=== PATIENT | female | born 1970 | race Caucasian/White ===

== ENCOUNTER 2016-08-16 16:16 | Emergency (ER) | payer MEDICAID ==
--- NOTE | 2016-08-16 16:30 | ER Document Report ---
ED Medical Screen (RME) - General Stated Complaint: FELL/WRIST PAIN Notes: 46 yo female c/o left wrist/arm pain. pt fell on sunday, tripped on boots. caught self with outstretched arm. pt has a known blood clot in left subclavian and vena cava. 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 IN LAST 30 DAYS: No - Related Data Allergies/Adverse Reactions: daptomycin Allergy (Severe, Verified 08/16/16 16:24) Anaphylaxis lemon oil [Lemon Oil] Allergy (Severe, Verified 08/16/16 16:24) Anaphylaxis vancomycin [Vancomycin] Allergy (Mild, Verified 08/16/16 16:24) tongue, facial swelling aspirin [Aspirin] Allergy (Verified 08/16/16 16:24) ibuprofen [Ibuprofen] Allergy (Verified 08/16/16 16:24) Penicillins Allergy (Verified 08/16/16 16:24) warfarin sodium [From Coumadin] Adverse Reaction (Unknown, Verified 08/16/16 16: 24) bleeding rivaroxaban [From Xarelto] Adverse Reaction (Verified 08/16/16 16:24) Bleeding Past Medical History - Past Medical History Cardiac Medical History: Reports: Hx Coronary Artery Disease, Hx DVT, Hx Heart Attack, Hx Hypercholesterolemia, Hx Hypertension, Hx Pulmonary Embolism Pulmonary Medical History: Reports: Hx Bronchitis Neurological Medical History: Reports: Hx Cerebrovascular Accident Renal/ Medical History: Reports: Hx Kidney Stones, Hx Renal Insufficiency Malignancy Medical History: Reports: Hx Ovarian Cancer - Bladder metastases GI Medical History: Reports: Hx Gastroesophageal Reflux Disease, Hx Ulcer Skin Medical History: Reports Hx Cellulitis Psychiatric Medical History: Reports: Hx Anxiety, Hx Depression Past Surgical History: Reports: Hx Cardiac Surgery - angioplasty, Hx Section, Hx Cholecystectomy, Hx Hysterectomy, Hx Orthopedic Surgery, Hx Urinary Tract Surgery - Bladder surgery for a metastatic cancer - Immunizations Hx Diphtheria, Pertussis, Tetanus Vaccination: No
[2016-08-16] MEDS ORDERED: HYDROCODONE/ACETAMINOPHEN 5-325 MG TABLET PO ONE (20:38)
--- NOTE | 2016-08-16 21:00 | ER Document Report ---
ED General - General Chief Complaint: Wrist Injury Stated Complaint: FELL/WRIST PAIN Time seen by provider: 20:00 Mode of Arrival: Wheelchair Information source: Patient Notes: 46-year-old female states she tripped over her 's boots and fell on outstretched left hand 3 days ago. She says that she fell she also struck her left shoulder on a dresser. She denies striking her head and denies a loss of consciousness. Patient is on anticoagulation for multiple blood clots and has had increased pain to the left wrist and left shoulder over the past 3 days. She denies injury elsewhere and has no other complaints other than chronic shortness of breath and chronic pain. Physical Exam: General: Alert, appears well. Morbidly obese pleasant female no respiratory distress HEENT: Normocephalic. Atraumatic. PERRLA. Extraocular movements intact. Oropharynx clear. Neck: Supple. Non-tender. Respiratory. Clear and equal breath sounds bilaterally. Cardiovascular: Regular rate and rhythm. Abdominal: Normal Inspection. Soft, non-tender. No distension. Normal Bowel Sounds. Extremities: Moves all four extremities. Left upper extremity has tenderness to palpation over the lateral portion left clavicle and anterior humeral head. She is able to demonstrate range of motion at the left shoulder but elevation and abduction increased pain. Extremities good range of motion the elbow without discomfort. She has increased pain with range of motion testing to the left wrist. She is able to didn't demonstrate intact radial median and ulnar nerve function and has 2+ radial and ulnar pulses. The patient is diffusely tender to palpation over the distal forearm and wrist on the left. No ecchymosis or swelling is appreciated anywhere in the left upper extremity. Other extremities are warm with 2+ pulses Neurological: Speech clear mentation normal Psychological: Normal affect. Normal Mood. Skin: Warm. Dry. Normal color. TRAVEL OUTSIDE OF THE [place] IN LAST 30 DAYS: No - Related Data Allergies/Adverse Reactions: daptomycin Allergy (Severe, Verified 08/16/16 16:24) Anaphylaxis lemon oil [Lemon Oil] Allergy (Severe, Verified 08/16/16 16:24) Anaphylaxis vancomycin [Vancomycin] Allergy (Mild, Verified 08/16/16 16:24) tongue, facial swelling aspirin [Aspirin] Allergy (Verified 08/16/16 16:24) ibuprofen [Ibuprofen] Allergy (Verified 08/16/16 16:24) Penicillins Allergy (Verified 08/16/16 16:24) warfarin sodium [From Coumadin] Adverse Reaction (Unknown, Verified 08/16/16 16: 24) bleeding rivaroxaban [From Xarelto] Adverse Reaction (Verified 08/16/16 16:24) Bleeding Past Medical History - Social History Smoking Status: Never Smoker Chew tobacco use (# tins/day): No Frequency of alcohol use: None Drug Abuse: None Family History: Reviewed & Not Pertinent Patient has suicidal ideation: No Patient has homicidal ideation: No - Past Medical History Cardiac Medical History: Reports: Hx Coronary Artery Disease, Hx DVT, Hx Heart Attack, Hx Hypercholesterolemia, Hx Hypertension, Hx Pulmonary Embolism Pulmonary Medical History: Reports: Hx Bronchitis Neurological Medical History: Reports: Hx Cerebrovascular Accident Renal/ Medical History: Reports: Hx Kidney Stones, Hx Renal Insufficiency. Denies: Hx Peritoneal Dialysis Malignancy Medical History: Reports: Hx Ovarian Cancer - Bladder metastases GI Medical History: Reports: Hx Gastroesophageal Reflux Disease, Hx Ulcer Skin Medical History: Reports Hx Cellulitis Psychiatric Medical History: Reports: Hx Anxiety, Hx Depression Past Surgical History: Reports: Hx Cardiac Surgery - angioplasty, Hx Section, Hx Cholecystectomy, Hx Hysterectomy, Hx Orthopedic Surgery, Hx Urinary Tract Surgery - Bladder surgery for a metastatic cancer - Immunizations Hx Diphtheria, Pertussis, Tetanus Vaccination: No Hx Pneumococcal Vaccination: 04/22/13 Review of Systems - Review of Systems Constitutional: denies: Chills, Fever EENT: denies: Ear pain, Throat pain Cardiovascular: denies: Chest pain Respiratory: denies: Cough Gastrointestinal: denies: Abdominal pain, Nausea, Vomiting Genitourinary: denies: Burning Musculoskeletal: See HPI Hematologic/Lymphatic: Easy bruising Neurological/Psychological: denies: Weakness, Numbness Physical Exam - Vital signs Vitals: Temp Pulse Resp BP Pulse Ox 97.8 F 82 20 141/80 H 99 08/16/16 16:21 08/16/16 16:21 08/16/16 16:21 08/16/16 16:21 08/16/16 16:21 Course - Re-evaluation Re-evalutation: 08/16/16 20:58 Patient has a fracture dislocation from her fall. I think the amount of pain as she is experiencing is likely related to soft tissue swelling possibly exacerbated by her anticoagulation. I cannot exclude the possibility of a hemarthrosis in either her shoulder or wrist but I think conservative management would be best in any case. She will provided a wrist splint as this seems to be the worst area of pain and we'll prescribe Vicodin as well and have her follow with her physicians for recheck - Vital Signs Vital signs: Temp Pulse Resp BP Pulse Ox 97.8 F 82 20 141/80 H 99 08/16/16 16:21 08/16/16 16:21 08/16/16 16:21 08/16/16 16:21 08/16/16 16:21 - Diagnostic Test Radiology reviewed: Image reviewed, Reports reviewed Discharge - Discharge Clinical Impression: Contusion Qualifiers: Encounter type: initial encounter Contusion area: wrist Laterality: left Qualified Code(s): S60.212A - Contusion of left wrist, initial encounter Contusion Qualifiers: Encounter type: initial encounter Contusion area: wrist Laterality: left Qualified Code(s): S60.212A - Contusion of left wrist, initial encounter Condition: Stable Disposition: HOME, SELF-CARE Additional Instructions: Contusion Your injury has resulted in a contusion -- a crushing of the deep tissues. No injury to important structures was detected during the physician's exam. Contusions vary in the amount of pain they cause, and in the length of time required for healing. Typically, the area will become bruised, and will remain painful to touch for two or three weeks. However, most patients are back to working and playing within a few days. After the initial period of rest and cold-packs, your symptoms (together with the doctor's recommendations) will determine how rapidly you can get back to full activity. Usually this means "do what feels okay, but don't do things that hurt." If re-examination was recommended, it's important to follow up as instructed. Call the doctor or return any time if pain increases, if swelling becomes severe, if you develop numbness or weakness in an injured extremity, or if any other alarming symptoms occur. Prescriptions: Hydrocodone/Acetaminophen [Vicodin 5-300 mg Tablet] 1 each PO Q6HP PRN #20 tablet PRN Reason: Referrals: KADY REYES MD [Primary Care Provider] - Follow up as needed
[2016-08-16 21:41] VITALS: BP 99/80
== END 2016-08-16 21:14 | disposition home or self-care (01) ==
LOC: ER 16:16
DX: S60.212A Contusion of left wrist, initial encounter (principal); W18.31XA Fall on same level due to stepping on an object, initial encounter; M25.532 Pain in left wrist; M25.512 Pain in left shoulder; I82.409 Acute embolism and thrombosis of unspecified deep veins of unspecified lower extremity; I26.99 Other pulmonary embolism without acute cor pulmonale; Z79.01 Long term (current) use of anticoagulants; I25.10 Atherosclerotic heart disease of native coronary artery without angina pectoris; I25.2 Old myocardial infarction; I10 Essential (primary) hypertension; R06.02 Shortness of breath; G89.29 Other chronic pain; Z88.1 Allergy status to other antibiotic agents; Z88.6 Allergy status to analgesic agent; Z88.0 Allergy status to penicillin; Z87.892 Personal history of anaphylaxis; Z91.018 Allergy to other foods; Z86.73 Personal history of transient ischemic attack (TIA), and cerebral infarction without residual deficits
CPT/HCPCS: 99283; 73030; 73110; L3984

== ENCOUNTER → 2016-08-17 | Outpatient (CLI) | payer MEDICAID ==
[~2016-08-17] MED LIST: ACETAMINOPHEN 325 MG TABLET PO PRN; DIPHENHYDRAMINE HCL 50 MG/ML VIAL IV PRN; IRON DEXTRAN COMPLEX 25 MG in NORMAL SALINE 100 ML IV PRN; IRON DEXTRAN COMPLEX 775 MG in NORMAL SALINE 500 ML IV PRN; NORMAL SALINE 250 ML IV PRN
[2016-08-17 17:52] VITALS: BP 124/81
== END ==
LOC: II 11:14
PROVIDERS: ATTEND Specialist
PROC: 3E033GC Introduction of Other Therapeutic Substance into Peripheral Vein, Percutaneous Approach (ICD-10-PCS; principal; 2016-08-17)
PROC: 3E033GC Introduction of Other Therapeutic Substance into Peripheral Vein, Percutaneous Approach (ICD-10-PCS; 2016-08-17)
PROC: 3E033GC Introduction of Other Therapeutic Substance into Peripheral Vein, Percutaneous Approach (ICD-10-PCS; 2016-08-17)
PROC: 3E033GC Introduction of Other Therapeutic Substance into Peripheral Vein, Percutaneous Approach (ICD-10-PCS; 2016-08-17)
PROC: 3E033GC Introduction of Other Therapeutic Substance into Peripheral Vein, Percutaneous Approach (ICD-10-PCS; 2016-08-17)
PROC: 3E033GC Introduction of Other Therapeutic Substance into Peripheral Vein, Percutaneous Approach (ICD-10-PCS; 2016-08-17)
DX: D50.0 Iron deficiency anemia secondary to blood loss (chronic) (principal)
CPT/HCPCS: 96375; 96365; 96366; J1750; J7040

== ENCOUNTER 2016-08-24 09:45 | Outpatient (CLI) | payer MEDICAID ==
[~2016-08-24 09:45] MED LIST changes: -ACETAMINOPHEN 325 MG TABLET PO PRN; -DIPHENHYDRAMINE HCL 50 MG/ML VIAL IV PRN; -IRON DEXTRAN COMPLEX 25 MG in NORMAL SALINE 100 ML IV PRN; -IRON DEXTRAN COMPLEX 775 MG in NORMAL SALINE 500 ML IV PRN; +IRON DEXTRAN COMPLEX 800 MG in NORMAL SALINE 500 ML IV PRN
[2016-08-24] MEDS ORDERED: DIPHENHYDRAMINE HCL 50 MG/ML VIAL IV PRN (10:11)
[2016-08-24 10:28] VITALS: BP 146/84
== END 2016-08-24 14:21 | disposition home or self-care (01) ==
LOC: II 09:45 → 5TH 09:46 → II 14:21
PROVIDERS: ATTEND Internal Medicine
PROC: 3E033GC Introduction of Other Therapeutic Substance into Peripheral Vein, Percutaneous Approach (ICD-10-PCS; principal; 2016-08-24)
PROC: 3E033GC Introduction of Other Therapeutic Substance into Peripheral Vein, Percutaneous Approach (ICD-10-PCS; 2016-08-24)
PROC: 3E033GC Introduction of Other Therapeutic Substance into Peripheral Vein, Percutaneous Approach (ICD-10-PCS; 2016-08-24)
DX: D50.0 Iron deficiency anemia secondary to blood loss (chronic) (principal)
CPT/HCPCS: 96365; 96366; 96375; J1200; J1750; J7040; 96374

== ENCOUNTER 2016-08-31 08:48 | Outpatient (CLI) | payer MEDICAID ==
[~2016-08-31 08:48] MED LIST changes: +ACETAMINOPHEN 325 MG TABLET PO PRN; +DIPHENHYDRAMINE HCL 50 MG/ML VIAL IV PRN
[2016-08-31 09:00] VITALS: BP 131/83
== END 2016-08-31 14:05 | disposition home or self-care (01) ==
LOC: II 08:48 → 5TH 08:52 → II 14:05
PROVIDERS: ATTEND Internal Medicine
PROC: 3E033GC Introduction of Other Therapeutic Substance into Peripheral Vein, Percutaneous Approach (ICD-10-PCS; principal; 2016-08-31)
PROC: 3E033GC Introduction of Other Therapeutic Substance into Peripheral Vein, Percutaneous Approach (ICD-10-PCS; 2016-08-31)
PROC: 3E033GC Introduction of Other Therapeutic Substance into Peripheral Vein, Percutaneous Approach (ICD-10-PCS; 2016-08-31)
DX: D50.0 Iron deficiency anemia secondary to blood loss (chronic) (principal)
CPT/HCPCS: 96365; 96366; 96375; J3490; J1200; J1750; J7040; 96367

== ENCOUNTER 2016-09-07 08:48 | Outpatient (CLI) | payer MEDICAID ==
[~2016-09-07 08:48] MED LIST changes: -ACETAMINOPHEN 325 MG TABLET PO PRN; -DIPHENHYDRAMINE HCL 50 MG/ML VIAL IV PRN
[2016-09-07 09:12] VITALS: BP 123/71
[2016-09-07] MEDS ORDERED: DIPHENHYDRAMINE HCL 50 MG/ML VIAL IV ONE (10:15)
== END 2016-09-07 13:10 | disposition home or self-care (01) ==
LOC: II 08:48 → 5TH 08:53 → II 13:10
PROVIDERS: ATTEND Internal Medicine
DX: D50.0 Iron deficiency anemia secondary to blood loss (chronic) (principal)
CPT/HCPCS: 96367; J1200; J1750; J7040

== ENCOUNTER 2017-09-02 22:28 | Emergency (ER) | payer MEDICAID ==
--- NOTE | 2017-09-02 23:53 | EKG REPORT ---
SEVERITY:- NORMAL ECG - SINUS RHYTHM : Confirmed by: Gomez Oneill 02-Sep-2017 23:53:01
--- NOTE | 2017-09-03 01:14 | ER Document Report ---
ED General - General Chief Complaint: Chest Pain Stated Complaint: BREATHING DIFFICULTY Time Seen by Provider: 09/03/17 00:23 TRAVEL OUTSIDE OF THE [place] IN LAST 30 DAYS: No - HPI Patient complains to provider of: Chest pain difficulty breathing swelling legs Notes: Patient has a history of CHF COPD coming in for evaluation of leg swelling and shortness of breath states ongoing for the last 2 days. Patient is doubling up on Bumex however decrease urination. Patient states she has not gained any weight however is having some shortness of breath patient states that he had her increase her oxygen night prior to arrival from 3 L to 4 L. Patient denies any recent travel denies any changes to medications. Patient states compliance with her Lovenox injection as she does have a history of DVT PE in the past. Patient denies any recent antibiotics. Patient also complaining of chest pain left arm center of the chest. Denies fevers chills nausea vomiting diarrhea - Related Data Allergies/Adverse Reactions: daptomycin Allergy (Severe, Verified 08/17/16 12:19) Anaphylaxis lemon oil [Lemon Oil] Allergy (Severe, Verified 08/17/16 12:19) Anaphylaxis vancomycin [Vancomycin] Allergy (Mild, Verified 08/17/16 12:19) tongue, facial swelling aspirin [Aspirin] Allergy (Verified 08/17/16 12:19) ibuprofen [Ibuprofen] Allergy (Verified 08/17/16 12:19) Penicillins Allergy (Verified 08/17/16 12:19) warfarin sodium [From Coumadin] Adverse Reaction (Unknown, Verified 08/17/16 12: 19) bleeding rivaroxaban [From Xarelto] Adverse Reaction (Verified 08/17/16 12:19) Bleeding Past Medical History - Social History Smoking Status: Unknown if Ever Smoked Family History: Reviewed & Not Pertinent - Past Medical History Cardiac Medical History: Reports: Hx Coronary Artery Disease, Hx DVT, Hx Hypercholesterolemia, Hx Hypertension, Hx Pulmonary Embolism Denies: Hx Heart Attack Pulmonary Medical History: Reports: Hx Pneumonia Denies: Hx Asthma, Hx Bronchitis, Hx COPD Neurological Medical History: Reports: Hx Cerebrovascular Accident - LEFT SIDED WEAKNESS. Denies: Hx Seizures Renal/ Medical History: Reports: Hx Kidney Stones, Hx Renal Insufficiency. Denies: Hx Peritoneal Dialysis Malignancy Medical History: Reports: Hx Ovarian Cancer - Bladder metastases GI Medical History: Reports: Hx Gastroesophageal Reflux Disease, Hx Ulcer. Denies: Hx Pancreatitis Musculoskeltal Medical History: Reports Hx Arthritis Skin Medical History: Reports Hx Cellulitis Psychiatric Medical History: Reports: Hx Anxiety, Hx Depression Past Surgical History: Reports: Hx Cardiac Surgery - angioplasty, Hx Section, Hx Cholecystectomy, Hx Hysterectomy, Hx Orthopedic Surgery, Hx Urinary Tract Surgery - Bladder surgery for a metastatic cancer - Immunizations Hx Diphtheria, Pertussis, Tetanus Vaccination: No Hx Pneumococcal Vaccination: 04/22/13 Review of Systems - Review of Systems Constitutional: No symptoms reported EENT: No symptoms reported Cardiovascular: Chest pain, Dyspnea, Edema Respiratory: No symptoms reported Gastrointestinal: No symptoms reported Genitourinary: No symptoms reported Female Genitourinary: No symptoms reported Musculoskeletal: No symptoms reported Skin: No symptoms reported Hematologic/Lymphatic: No symptoms reported Neurological/Psychological: No symptoms reported -: Yes All other systems reviewed and negative Physical Exam - Vital signs Vitals: Temp Pulse BP Pulse Ox 97.7 F 82 151/103 H 100 09/02/17 22:43 09/02/17 22:43 09/02/17 22:43 09/02/17 22:43 Interpretation: Normal - General General appearance: Appears well, Alert - HEENT Head: Normocephalic, Atraumatic Eyes: Normal Pupils: PERRL - Respiratory Respiratory status: No respiratory distress Chest status: Nontender Breath sounds: Normal Chest palpation: Normal - Cardiovascular Rhythm: Regular Heart sounds: Normal auscultation Murmur: No - Abdominal Inspection: Morbidly Obese Distension: No distension Bowel sounds: Normal Tenderness: Nontender Organomegaly: No organomegaly - Back Back: Normal, Nontender - Extremities General upper extremity: Normal inspection, Nontender, Normal color, Normal ROM , Normal temperature General lower extremity: Normal inspection, Nontender, Edema, Normal color, Normal ROM, Normal temperature - Neurological Neuro grossly intact: Yes Cognition: Normal Orientation: AAOx4 [place] Coma Scale Eye Opening: Spontaneous [place] Coma Scale Verbal: Oriented [place] Coma Scale Motor: Obeys Commands [place] Coma Scale Total: 15 Speech: Normal Motor strength normal: LUE, RUE, LLE, RLE Sensory: Normal - Psychological Associated symptoms: Normal affect, Normal mood - Skin Skin Temperature: Warm Skin Moisture: Dry Skin Color: Normal Course - Re-evaluation Re-evalutation: 09/03/17 05:10 Examination of the patient's legs does show edema patient's concern for slight erythema for cellulitis at this time is no increase in warmth no white count did not think similar process patient's laboratory studies have returned negative for cardiac issues overt heart failure and also renal failure. Patient was given Bumex and Zaroxolyn. Will check a second troponin if negative will send patient home with a prescription for Zaroxolyn. 09/03/17 05:11 Patient again states compliance with her anticoagulation do not feel the need to perform Dopplers at this time 09/03/17 05:20 Eyeball test approximately over 500 cc of urine and bedside commode at discharge - Vital Signs Vital signs: Temp Pulse Resp BP Pulse Ox 97.7 F 82 14 121/77 100 09/02/17 22:43 09/02/17 22:43 09/03/17 04:01 09/03/17 04:01 09/03/17 04:01 - Laboratory Result Diagrams: 09/03/17 01:21 09/03/17 02:05 Laboratory results interpreted by me: 09/03/17 09/03/17 09/03/17 01:21 01:21 02:05 RDW 14.8 H Carbon Dioxide 33 H Glucose 114 H NT-Pro-B Natriuret Pep 814 H Total Protein 6.2 L Lipase 19.5 L Discharge - Discharge Clinical Impression: Chronic anticoagulation, Bilateral lower extremity edema Condition: Good Instructions: Chest Pain of Unclear Cause ([facility]), Dependent Edema ([facility]) Additional Instructions: Please take Zaroxolyn with your Bumex. Will do this for the next 5 days to help remove fluid. Please follow-up with your primary care physician return to the ER symptoms worsen. Prescriptions: Metolazone [Zaroxolyn 2.5 Mg Tablet] 2.5 mg PO DAILY #5 tablet Ondansetron [Zofran Odt] 4 mg PO Q6 PRN #30 tab.rapdis PRN Reason: For Nausea/Vomiting
[2017-09-03 01:35] LABS: ABSOLUTE BASOPHILS # (AUTO) 0.1 10^3/uL (0.0-0.2); ABSOLUTE EOSINOPHILS # (AUTO) 0.3 10^3/uL (0.0-0.6); ABSOLUTE LYMPHOCYTES (AUTO) 1.3 10^3/uL (0.5-4.7); ABSOLUTE MONOCYTES (AUTO) 0.5 10^3/uL (0.1-1.4); ABSOLUTE NEUT (AUTO) 4.1 10^3/uL (1.7-8.2); EOSINOPHILS % (AUTO) 5.3 % (0-6); HEMATOCRIT 36.2 % (36.0-47.0); HEMOGLOBIN 12.1 g/dL (12.0-15.5); LYMPHOCYTES % (AUTO) 20.6 % (13-45); MEAN CORPUSCULAR HEMOGLOBIN 28.6 pg (27.0-33.4); MEAN CORPUSCULAR HGB CONC 33.4 g/dL (32.0-36.0); MEAN CORPUSCULAR VOLUME 86 fl (80-97); MONOCYTES % (AUTO) 8.1 % (3-13); PLATELET COUNT 160 10^3/uL (150-450); RED BLOOD COUNT 4.22 10^6/uL (3.72-5.28); RED CELL DISTRIBUTION WIDTH 14.8 % (11.5-14.0); TOTAL CELLS COUNTED % (AUTO) 100 %; WHITE BLOOD COUNT 6.4 10^3/uL (4.0-10.5)
[2017-09-03 01:39] LABS: INTERNATIONAL RATION (INR) 0.92
--- NOTE | 2017-09-03 01:49 | RADIOLOGY REPORT (SQ) ---
EXAM DESCRIPTION: CHEST SINGLE VIEW CLINICAL HISTORY: sob COMPARISON: 07/15/2016 FINDINGS: Single frontal view of the chest. Cardiomegaly. Right midlung linear opacity is unchanged likely representing scar discoid atelectasis. No consolidation, pneumothorax, or pleural effusion. No displaced rib fractures identified. Upper abdominal soft tissues are unremarkable. IMPRESSION: 1. No acute pulmonary process identified.
[2017-09-03] MEDS ORDERED: ONDANSETRON HCL INJ/PF 4 MG/2 ML SDV IV ONE (01:53)
[2017-09-03] MEDS ORDERED: HYDROMORPHONE HCL INJ/PF 2 MG/ML AMPULE IV ONE (01:53)
[2017-09-03 02:03] LABS: NT PRO BNP 814 pg/mL (<125)
[2017-09-03 02:05] LABS: CREATINE KINASE MB < 0.22 ng/mL (<4.55); TROPONIN I < 0.012 ng/mL
[2017-09-03 02:32] LABS: ALANINE AMINOTRANSFERASE 34 U/L (9-52); ALBUMIN 3.7 g/dL (3.5-5.0); ALKALINE PHOSPHATASE 83 U/L (38-126); ANION GAP 6 (5-19); ASPARTATE AMINO TRANSFERASE 20 U/L (14-36); BILIRUBIN,DIRECT 0.4 mg/dL (0.0-0.4); BILIRUBIN,TOTAL 0.5 mg/dL (0.2-1.3); BLOOD UREA NITROGEN 10 mg/dL (7-20); CARBON DIOXIDE 33 mmol/L (22-30); CHLORIDE 101 mmol/L (98-107); CREATINE KINASE 37 U/L (30-135); GLUCOSE 114 mg/dL (75-110); LIPASE 19.5 U/L (23-300); POTASSIUM 3.9 mmol/L (3.6-5.0); SODIUM 140.4 mmol/L (137-145); TOTAL PROTEIN 6.2 g/dL (6.3-8.2)
[2017-09-03] MEDS ORDERED: BUMETANIDE INJ/PF 1 MG/4 ML SDV IV ONE (03:04)
[2017-09-03] MEDS ORDERED: METOLAZONE 5 MG TABLET PO ONE (03:04)
[2017-09-03] MEDS ORDERED: METOLAZONE 5 MG TABLET ONE (03:53)
[2017-09-03] MEDS ORDERED: FENTANYL CITRATE INJ/PF 100 MCG/2 ML AMPUL IV ONE (04:09)
[2017-09-03 06:11] VITALS: BP 146/95
== END 2017-09-03 05:20 | disposition home or self-care (01) ==
LOC: ER 22:28
DX: I11.0 Hypertensive heart disease with heart failure (principal); I50.9 Heart failure, unspecified; Z79.899 Other long term (current) drug therapy; J44.9 Chronic obstructive pulmonary disease, unspecified; R06.02 Shortness of breath; Z99.81 Dependence on supplemental oxygen; R07.9 Chest pain, unspecified; Z79.02 Long term (current) use of antithrombotics/antiplatelets; Z86.711 Personal history of pulmonary embolism; Z86.718 Personal history of other venous thrombosis and embolism; Z88.6 Allergy status to analgesic agent; Z87.892 Personal history of anaphylaxis; Z91.018 Allergy to other foods; Z88.1 Allergy status to other antibiotic agents; I25.10 Atherosclerotic heart disease of native coronary artery without angina pectoris; Z87.01 Personal history of pneumonia (recurrent)
CPT/HCPCS: 93005; 99285; 96374; 96375; 36415; 82553; 82550; 83690; 85025; 85610; 85730; 80053; 84484; 83880; 71045; 93010; J3490; J3010; J1170; J2405

== ENCOUNTER 2017-09-06 23:16 | Inpatient (IN) | payer MEDICAID ==
[2017-09-07] MEDS ORDERED: FUROSEMIDE INJ/PF 40 MG/4 ML SDV IV ONE (00:59)
--- NOTE | 2017-09-07 01:02 | ER Document Report ---
ED General - General Chief Complaint: Leg Pain Stated Complaint: SWOLLEN/PAINFUL LEGS Time Seen by Provider: 09/07/17 00:30 Notes: Patient is a 47-year-old female who has a past medical history of multiple thromboembolic events, chronically anti-coagulated, hypertension, morbid obesity , diabetes, COPD, who presents with progressively worsening pain and swelling of her bilateral lower extremities. She describes it as a severe, constant, throbbing pain that is worsened since she was evaluated here 4 days ago. She notes that she has been taking bumetanide as well as metolazone as prescribed without any improvement and believes it is actually worsened. She denies any dietary indiscretions. She has a history of similar symptoms in the past that required hospitalization and IV diuresis. She denies any shortness of breath, orthopnea, or syncope. No chest pain. No fever or constitutional symptoms. TRAVEL OUTSIDE OF THE [place] IN LAST 30 DAYS: No - Related Data Allergies/Adverse Reactions: daptomycin Allergy (Severe, Verified 08/17/16 12:19) Anaphylaxis lemon oil [Lemon Oil] Allergy (Severe, Verified 08/17/16 12:19) Anaphylaxis vancomycin [Vancomycin] Allergy (Mild, Verified 08/17/16 12:19) tongue, facial swelling aspirin [Aspirin] Allergy (Verified 08/17/16 12:19) ibuprofen [Ibuprofen] Allergy (Verified 08/17/16 12:19) Penicillins Allergy (Verified 08/17/16 12:19) warfarin sodium [From Coumadin] Adverse Reaction (Unknown, Verified 08/17/16 12: 19) bleeding rivaroxaban [From Xarelto] Adverse Reaction (Verified 08/17/16 12:19) Bleeding Past Medical History - General Information source: Patient, Relative - Social History Smoking Status: Former Smoker Frequency of alcohol use: None Drug Abuse: None Lives with: Spouse/Significant other Family History: Reviewed & Not Pertinent - Past Medical History Cardiac Medical History: Reports: Hx Coronary Artery Disease, Hx DVT, Hx Hypercholesterolemia, Hx Hypertension, Hx Pulmonary Embolism Denies: Hx Heart Attack Pulmonary Medical History: Reports: Hx Pneumonia Denies: Hx Asthma, Hx Bronchitis, Hx COPD Neurological Medical History: Reports: Hx Cerebrovascular Accident - LEFT SIDED WEAKNESS. Denies: Hx Seizures Renal/ Medical History: Reports: Hx Kidney Stones, Hx Renal Insufficiency. Denies: Hx Peritoneal Dialysis Malignancy Medical History: Reports: Hx Ovarian Cancer - Bladder metastases GI Medical History: Reports: Hx Gastroesophageal Reflux Disease, Hx Ulcer. Denies: Hx Pancreatitis Musculoskeltal Medical History: Reports Hx Arthritis Skin Medical History: Reports Hx Cellulitis Psychiatric Medical History: Reports: Hx Anxiety, Hx Depression Past Surgical History: Reports: Hx Cardiac Surgery - angioplasty, Hx Section, Hx Cholecystectomy, Hx Hysterectomy, Hx Orthopedic Surgery, Hx Urinary Tract Surgery - Bladder surgery for a metastatic cancer - Immunizations Hx Diphtheria, Pertussis, Tetanus Vaccination: No Hx Pneumococcal Vaccination: 04/22/13 Review of Systems - Review of Systems Notes: Constitutional: Negative for fever. HENT: Negative for sore throat. Eyes: Negative for visual changes. Cardiovascular: Negative for chest pain. Respiratory: Negative for shortness of breath. Gastrointestinal: Negative for abdominal pain, vomiting or diarrhea. Genitourinary: Negative for dysuria. Musculoskeletal: Positive for bilateral lower extremity pain Skin: Negative for rash. Neurological: Negative for headaches, weakness or numbness. 10 point ROS negative except as marked above and in HPI. Physical Exam - Vital signs Vitals: Temp Pulse Resp BP Pulse Ox 98.6 F 77 20 146/87 H 98 09/06/17 23:57 09/06/17 23:57 09/06/17 23:57 09/06/17 23:57 09/06/17 23:57 Interpretation: Hypertensive Notes: PHYSICAL EXAMINATION: GENERAL: Appears moderately uncomfortable but no acute distress HEAD: Atraumatic, normocephalic. EYES: Pupils equal round and reactive to light, extraocular movements intact, sclera anicteric, conjunctiva are normal. ENT: nares patent, oropharynx clear without exudates. Moist mucous membranes. NECK: Normal range of motion, supple without lymphadenopathy LUNGS: Breath sounds clear to auscultation bilaterally and equal. No wheezes rales or rhonchi. HEART: Regular rate and rhythm without murmurs ABDOMEN: Morbidly obese abdomen, soft, nontender, normoactive bowel sounds. No guarding, no rebound. No masses appreciated. EXTREMITIES: Normal range of motion, 4+ pitting edema that extends above the knee with associated erythema and exquisite tenderness on palpation NEUROLOGICAL: No focal neurological deficits. Moves all extremities spontaneously and on command. PSYCH: Normal mood, normal affect. SKIN: Warm, Dry, normal turgor, no rashes or lesions noted. Course - Re-evaluation Re-evalutation: 09/07/17 01:00 Patient presents with progressively worsening bilateral lower extremity edema that is 4+ pitting in the bilateral lower extremities with obviously very painful sensation to even light touch. Patient is morbidly obese and I suspect a large component is secondary to poor venous return secondary to her severe truncal obesity. Labs from her most recent assessment showed no significant elevation of her BNP at baseline. No congestive failure and no increased shortness of breath. She is saturating 100% on her normal baseline 3 L by nasal cannula. She has been taking bumetanide 2 mg twice daily in addition to metolazone and reports that she is only put out 1 L of fluid since she was last seen in the emergency department. Please note that the weights entered into the system are not accurate. The patient was only asked to gas her weight and was never weighed during her prior visit nor today's visit. We will obtain an accurate weight but unfortunately I am unable to compare her weight from her previous visit to today to assist me in establishing how well the patient is diuresing as an outpatient. However given her report of progressively worsening pain and increasing edema I feel believe she is clearly failing outpatient therapy at this point will require IV diuresis and hospitalization. 09/07/17 02:08 Labs unremarkable, I discussed with Dr. Whatley who has agreed to hospitalize the patient for IV diuresis. - Vital Signs Vital signs: Temp Pulse Resp BP Pulse Ox 98.6 F 77 20 146/87 H 98 09/06/17 23:57 09/06/17 23:57 09/06/17 23:57 09/06/17 23:57 09/06/17 23:57 - Laboratory Result Diagrams: 09/07/17 00:40 09/07/17 00:40 Laboratory results interpreted by me: 09/07/17 09/07/17 00:40 00:40 RDW 14.8 H Carbon Dioxide 31 H Glucose 126 H Discharge - Discharge Clinical Impression: Bilateral lower extremity edema, Morbid obesity with BMI of 60.0-69.9, adult Condition: Fair Disposition: ADMITTED INPATIENT Admitting Provider: Billy Whatley Unit Admitted: Telemetry
[2017-09-07 01:05] LABS: ANION GAP 9 (5-19); BLOOD UREA NITROGEN 14 mg/dL (7-20); CALCIUM 9.4 mg/dL (8.4-10.2); CARBON DIOXIDE 31 mmol/L (22-30); CHLORIDE 100 mmol/L (98-107); GLUCOSE 126 mg/dL (75-110); POTASSIUM 4.5 mmol/L (3.6-5.0); SODIUM 139.8 mmol/L (137-145)
[2017-09-07 01:17] LABS: ABSOLUTE BASOPHILS # (AUTO) 0.1 10^3/uL (0.0-0.2); ABSOLUTE EOSINOPHILS # (AUTO) 0.3 10^3/uL (0.0-0.6); ABSOLUTE LYMPHOCYTES (AUTO) 1.2 10^3/uL (0.5-4.7); ABSOLUTE MONOCYTES (AUTO) 0.5 10^3/uL (0.1-1.4); ABSOLUTE NEUT (AUTO) 4.6 10^3/uL (1.7-8.2); BASOPHILS % (AUTO) 1.1 % (0-2); HEMATOCRIT 36.8 % (36.0-47.0); HEMOGLOBIN 12.3 g/dL (12.0-15.5); LYMPHOCYTES % (AUTO) 18.2 % (13-45); MEAN CORPUSCULAR HEMOGLOBIN 28.3 pg (27.0-33.4); MEAN CORPUSCULAR HGB CONC 33.5 g/dL (32.0-36.0); MEAN CORPUSCULAR VOLUME 84 fl (80-97); MONOCYTES % (AUTO) 6.8 % (3-13); PLATELET COUNT 168 10^3/uL (150-450); RED BLOOD COUNT 4.36 10^6/uL (3.72-5.28); RED CELL DISTRIBUTION WIDTH 14.8 % (11.5-14.0); SEGMENTED NEUTROPHILS % (AUTO) 68.9 % (42-78); TOTAL CELLS COUNTED % (AUTO) 100 %; WHITE BLOOD COUNT 6.7 10^3/uL (4.0-10.5)
[2017-09-07] MEDS ORDERED: MAG HYDROX/AL HYDROX/SIMETH SUSP 30 ML UDCUP PO PRN (02:17)
[2017-09-07] MEDS: FENTANYL CITRATE INJ/PF 100 MCG/2 ML AMPUL IV PRN ×3 (03:05→09:35)
[2017-09-07] MEDS: HEPARIN SOD (PORCINE) 5,000 UNIT/ML 1 ML SYRINGE SUBCUT SCH ×2 (06:33→14:38)
--- NOTE | 2017-09-07 06:47 | PDOC H&P ---
History of Present Illness Admission Date/PCP: 09/07/17 02:20 Patient complains of: Bilateral leg pain and erythema History of Present Illness: DOMONIQUE DOMINGUEZ is a 47 year old female with a past medical history of super morbid obesity, DVT and pulmonary emboli on Lovenox and recurrent venous stasis. Patient presents with approximately 5 days of worsening lower extremity erythema and pain. She denies chest pain, shortness of breath, nausea vomiting but admits subjective fever and swelling with leg pain. In the emergency room she seen +3 lower extremity edema with erythema with an otherwise unremarkable workup she is referred to the hospitalist for observation. Patient admits to multiple previous episodes and noncompliance lifestyle remaining in a recliner chair without use of compression stockings. Past Medical History Cardiac Medical History: Reports: Coronary Artery Disease, DVT, Hyperlipidema, Hypertension, Pulmonary Embolism Denies: Myocardial Infarction Pulmonary Medical History: Reports: Pneumonia Denies: Asthma, Bronchitis, Chronic Obstructive Pulmonary Disease (COPD) Neurological Medical History: Denies: Seizures Malignancy Medical History: Reports: Ovarian Cancer - Bladder metastases GI Medical History: Reports: Gastroesophageal Reflux Disease Musculoskeltal Medical History: Reports: Arthritis Psychiatric Medical History: Reports: Depression Hematology: Reports: Anemia Denies: Hemophilia, Sickle Cell Disease Past Surgical History Past Surgical History: Reports: Section, Cholecystectomy, Hysterectomy , Orthopedic Surgery Denies: Amputation Social History Information Source: Patient Lives with: Spouse/Significant other Smoking Status: Former Smoker Frequency of Alcohol Use: Occasional Hx Recreational Drug Use: No Drugs: None Hx Prescription Drug Abuse: No - Advance Directive Resuscitation Status: Full Code Family History Family History: DM Parental Family History Reviewed: Yes Children Family History Reviewed: Yes Sibling(s) Family History Reviewed.: Yes Medication/Allergy Home Medications: Clopidogrel Bisulfate [Plavix] 75 mg PO DAILY 12/03/15 Duloxetine HCl [Cymbalta 20 mg Capsule.dr] 20 mg PO DAILY 12/03/15 Epinephrine 0.3 mg SUBCUT PRN PRN 12/03/15 Morphine Sulfate [Ms-Contin Sr 15 mg Tablet] 45 mg PO BID 12/03/15 Oxycodone HCl 30 mg PO Q4H PRN 12/03/15 Potassium Chloride [Klor-Con M10] 10 meq PO DAILY 12/03/15 Ranitidine HCl 150 mg PO DAILY 12/03/15 Atorvastatin Calcium [Lipitor 40 mg Tablet] 40 mg PO QHS 03/01/16 Budesonide [Pulmicort Neb 0.5 mg/2 ml Ampul] 0.5 mg NEB PRN PRN 03/01/16 Carvedilol [Coreg] 1 tab PO Q12 03/01/16 Furosemide [Lasix 40 mg Tablet] 80 mg PO QAM 03/01/16 Ipratropium/Albuterol Sulfate [Duoneb 3 ml Ampul] 1 inh NEB BIDP PRN 03/01/16 Lisinopril 5 mg PO BID 03/01/16 Ondansetron [Zofran Odt 4 mg Tablet] 4 mg PO Q4HP PRN #30 tab.rapdis 03/13/16 Promethazine HCl [Phenergan 25 mg Tablet] 25 mg PO Q6HP PRN #20 tablet 03/13/16 Docusate Sodium [Colace 100 mg Capsule] 100 mg PO DAILYP PRN 07/15/16 Enoxaparin Sodium [Lovenox Inj 100 mg/1 ml Disp.syrin] 150 mg SUBCUT Q12 Ferrous Sulfate [Iron] 325 mg PO DAILY 07/15/16 Montelukast Sodium [Singulair 10 mg Tablet] 10 mg PO QHS 07/15/16 Oxybutynin Chloride [Ditropan 5 mg Tablet] 5 mg PO DAILY 07/15/16 Prochlorperazine Maleate [Compazine 10 mg Tablet] 25 mg PO BIDP PRN 07/15/16 Docusate Sodium [Colace 100 mg Capsule] 100 mg PO BID #60 capsule 07/21/16 Nystatin [Mycostatin Topical Powder 15 gm] 1 applic TP BID #1 bottle 07/21/16 Hydrocodone/Acetaminophen [Vicodin 5-300 mg Tablet] 1 each PO Q6HP PRN #20 tablet 08/16/16 Metolazone [Zaroxolyn 2.5 Mg Tablet] 2.5 mg PO DAILY #5 tablet 09/03/17 Ondansetron [Zofran Odt] 4 mg PO Q6 PRN #30 tab.rapdis 09/03/17 Allergies/Adverse Reactions: daptomycin Allergy (Severe, Verified 08/17/16 12:19) Anaphylaxis lemon oil [Lemon Oil] Allergy (Severe, Verified 01/26/17 12:19) Anaphylaxis vancomycin [Vancomycin] Allergy (Mild, Verified 08/17/16 12:19) tongue, facial swelling aspirin [Aspirin] Allergy (Verified 08/17/16 12:19) ibuprofen [Ibuprofen] Allergy (Verified 08/17/16 12:19) Penicillins Allergy (Verified 08/17/16 12:19) warfarin sodium [From Coumadin] Adverse Reaction (Unknown, Verified 08/17/16 12: 19) bleeding rivaroxaban [From Xarelto] Adverse Reaction (Verified 08/17/16 12:19) Bleeding Review of Systems Constitutional: ABSENT: chills, fever(s), headache(s), weight gain, weight loss Eyes: ABSENT: visual disturbances Ears: ABSENT: hearing changes Cardiovascular: ABSENT: chest pain, dyspnea on exertion, edema, orthropnea, palpitations Respiratory: ABSENT: cough, hemoptysis Gastrointestinal: ABSENT: abdominal pain, constipation, diarrhea, hematemesis, hematochezia, nausea, vomiting Genitourinary: ABSENT: dysuria, hematuria Musculoskeletal: ABSENT: joint swelling Integumentary: ABSENT: rash, wounds Neurological: ABSENT: abnormal gait, abnormal speech, confusion, dizziness, focal weakness, syncope Psychiatric: ABSENT: anxiety, depression, homidical ideation, suicidal ideation Endocrine: ABSENT: cold intolerance, heat intolerance, polydipsia, polyuria Hematologic/Lymphatic: ABSENT: easy bleeding, easy bruising Physical Exam Vital Signs: Temp Pulse Resp BP Pulse Ox 98.8 F 84 16 128/65 H 96 09/07/17 05:59 09/07/17 05:59 09/07/17 05:59 09/07/17 05:59 09/07/17 05:59 Intake & Output 09/05/17 09/06/17 09/07/17 11:59 11:59 11:59 Weight 171 kg General appearance: PRESENT: no acute distress, cooperative, morbidly obese, well-developed, well-nourished Head exam: PRESENT: atraumatic, normocephalic Eye exam: PRESENT: conjunctiva pink, EOMI, PERRLA. ABSENT: scleral icterus Ear exam: PRESENT: normal external ear exam Mouth exam: PRESENT: moist, tongue midline Neck exam: ABSENT: carotid bruit, JVD, lymphadenopathy, thyromegaly Respiratory exam: PRESENT: clear to auscultation astrid. ABSENT: rales, rhonchi, wheezes Cardiovascular exam: PRESENT: RRR. ABSENT: diastolic murmur, rubs, systolic murmur Pulses: PRESENT: normal dorsalis pedis pul Vascular exam: PRESENT: normal capillary refill GI/Abdominal exam: PRESENT: normal bowel sounds, soft. ABSENT: distended, guarding, mass, organolmegaly, rebound, tenderness Rectal exam: PRESENT: deferred Extremities exam: PRESENT: full ROM, +2 edema. ABSENT: calf tenderness, clubbing, pedal edema Neurological exam: PRESENT: alert, awake, oriented to person, oriented to place , oriented to time, oriented to situation, CN II-XII grossly intact. ABSENT: motor sensory deficit Psychiatric exam: PRESENT: appropriate affect, normal mood. ABSENT: homicidal ideation, suicidal ideation Skin exam: PRESENT: dry, erythema, intact, warm. ABSENT: cyanosis, rash Assessment & Plan - Diagnosis (1) Venous stasis dermatitis of both lower extremities Is this a current diagnosis for this admission?: Yes Plan: Education, compression stockings and elevation. (2) Bilateral lower extremity edema Is this a current diagnosis for this admission?: Yes Plan: Trial loop diuretic diuresis in addition to above. - Time Time Spent: 30 to 50 Minutes
[2017-09-07] MEDS ORDERED: INFLUENZA ADLT QUAD (36MOS+) 2017-18 VAC 0.5 ML SYR IM PRN (07:51)
[2017-09-07 08:13] LABS: ANION GAP 12 (5-19); BLOOD UREA NITROGEN 14 mg/dL (7-20); CALCIUM 9.6 mg/dL (8.4-10.2); CARBON DIOXIDE 32 mmol/L (22-30); CHLORIDE 96 mmol/L (98-107); GLUCOSE 135 mg/dL (75-110); POTASSIUM 3.8 mmol/L (3.6-5.0); SODIUM 139.6 mmol/L (137-145)
[2017-09-07] MEDS: DOCUSATE SODIUM 100 MG CAPSULE PO SCH (09:14)
[2017-09-07] MEDS: POTASSIUM CHLORIDE 10 MEQ TABLET.SA PO SCH ×2 (09:15→22:09)
[2017-09-07] MEDS ORDERED: DOCUSATE SODIUM 100 MG CAPSULE PO PRN (09:55)
[2017-09-07] MEDS ORDERED: IPRATROPIUM/ALBUTEROL 0.5-2.5 MG/3 ML AMPUL NEB PRN (09:55)
[2017-09-07] MEDS ORDERED: (PENDING PHARMACY ID) (Oxycodone Hcl/Acetaminophen [Percocet 10-325 Mg Tablet] 1 TAB) PO PRN (09:55)
[2017-09-07] MEDS ORDERED: BUDESONIDE NEB 0.5 MG/2 ML AMPUL NEB PRN (09:55)
[2017-09-07] MEDS ORDERED: POTASSIUM CHLORIDE 10 MEQ TABLET.SA PO SCH (10:00)
[2017-09-07] MEDS ORDERED: FUROSEMIDE INJ/PF 40 MG/4 ML SDV IV SCH ×2 (10:00→15:15)
[2017-09-07] MEDS ORDERED: ENOXAPARIN SODIUM SUBCUT SCH (10:00)
[2017-09-07] MEDS ORDERED: (PENDING PHARMACY ID) (Bumetanide [Bumex 2 Mg Tablet] 2 MG) PO SCH (10:00)
[2017-09-07] MEDS ORDERED: (PENDING PHARMACY ID) (Ranitidine Hcl [Zantac 150 Mg Tablet] 150 MG) PO SCH (10:00)
[2017-09-07] MEDS: LISINOPRIL 5 MG TABLET PO SCH ×2 (10:30→22:09)
[2017-09-07] MEDS: MORPHINE SULFATE SR 30 MG TABLET PO SCH ×2 (10:31→22:09)
[2017-09-07] MEDS: CLOPIDOGREL BISULFATE 75 MG TABLET PO SCH (10:32)
[2017-09-07] MEDS: CARVEDILOL 3.125 MG TABLET PO SCH ×2 (10:32→22:09)
[2017-09-07] MEDS: OXYBUTYNIN CHLORIDE 5 MG TABLET PO SCH (10:32)
[2017-09-07] MEDS: FERROUS SULFATE 325 MG TABLET PO SCH (10:33)
[2017-09-07] MEDS: ONDANSETRON 4 MG TAB.RAPDIS PO PRN (10:45)
[2017-09-07] MEDS ORDERED: HYDROMORPHONE HCL INJ/PF 2 MG/ML AMPULE ONE (12:54)
[2017-09-07] MEDS: DULOXETINE HCL 20 MG CAPSULE.DR PO SCH (14:34)
[2017-09-07] MEDS: OXYCODONE-ACETAMINOPHEN 5-325 MG TABLET PO PRN (14:35)
[2017-09-07] MEDS: OXYCODONE HCL IR 5 MG TABLET PO PRN (14:35)
--- NOTE | 2017-09-07 15:31 | PDOC PROGRESS REPORT ---
Subjective Progress Note for:: 09/07/17 Subjective:: The patient is a morbidly obese 47-year-old female with a past medical history significant for chronic respiratory failure on 3 L of oxygen at home. She has a history of coronary artery disease history of DVT and PE. She is maintained on Lovenox therapy. She has hyperlipidemia and hypertension. The patient has had an increasing history over the past couple of weeks of increased shortness of breath. She also states that she has had increasing lower extremity edema and as her legs have become more swollen they have become significantly painful. Her last echocardiogram was in September 2015. She was admitted to the hospital for IV diuresis. Today when I saw her she is still quite uncomfortable although she states that the swelling is minimally better. She is being diuresed with IV Lasix and tolerating it well. She denies fever or chills. No chest pain or heart palpitations that she is aware of. She is having difficulty lying flat and states that she has increased shortness of breath although she is at her baseline oxygen requirements at this point. She has had no nausea, vomiting or diarrhea. No abdominal pain. The patient does not feel like she is voiding as much as she should be and she has been afraid to drink water at home because she did not want to make the swelling any worse. She also states that she has been having difficulty ambulating due to the significant pain in her lower extremities. Reason For Visit: VENOUS STASIS HEART FAILURE Physical Exam Vital Signs: Temp Pulse Resp BP Pulse Ox 98.8 F 79 18 133/71 H 98 09/07/17 11:14 09/07/17 11:14 09/07/17 11:14 09/07/17 11:14 09/07/17 11:51 Intake & Output 09/06/17 09/07/17 09/08/17 06:59 06:59 06:59 Intake Total 240 Output Total 1100 Balance -860 Weight 171 kg General appearance: PRESENT: cooperative, morbidly obese, well-developed, well- nourished Head exam: PRESENT: atraumatic, normocephalic Mouth exam: PRESENT: moist, tongue midline Respiratory exam: PRESENT: other - She may have some fine crackles in the lower bases bilaterally it is difficult to tell. She is significantly diminished and Cardiovascular exam: PRESENT: RRR. ABSENT: diastolic murmur, rubs, systolic murmur GI/Abdominal exam: PRESENT: normal bowel sounds, soft, other - I could not assess for organomegaly due to the patient's body habitus. ABSENT: distended, guarding, mass, rebound, tenderness Rectal exam: PRESENT: deferred Extremities exam: PRESENT: +1 edema, other - The patient has 1+ edema bilaterally that extends up into her thighs. She has some erythema consistent with venous stasis changes in both of her lower extremities. Both of her lower extremities are quite tender to the touch. Also the tops of her feet. Neurological exam: PRESENT: alert, awake, oriented to person, oriented to place , oriented to time, oriented to situation, CN II-XII grossly intact. ABSENT: motor sensory deficit Psychiatric exam: PRESENT: appropriate affect, normal mood. ABSENT: homicidal ideation, suicidal ideation Skin exam: PRESENT: dry, intact, warm, other - Venous stasis changes to both of her lower extremities bilaterally. ABSENT: cyanosis, rash Results Laboratory Results: 09/07/17 07:20 09/07/17 07:20 Sodium 139.6 Potassium 3.8 Chloride 96 L Carbon Dioxide 32 H Anion Gap 12 BUN 14 Creatinine 0.80 Est GFR ( Amer) > 60 Est GFR (Non-Af Amer) > 60 Glucose 135 H Calcium 9.6 Assessment & Plan - Diagnosis (1) Bilateral lower extremity edema Is this a current diagnosis for this admission?: Yes Plan: I will continue IV Lasix. I am going to increase her dose to 60 mg twice daily. We will see how much she diuresis overnight. Certainly she is a little better today. (2) Congestive heart failure Qualifiers: Heart failure type: right-sided Is this a current diagnosis for this admission?: Yes Plan: At this point I suspect the patient has some right-sided congestive heart failure. Her echocardiogram in September 2015 revealed preserved left ventricular function. They were unable to assess for diastolic dysfunction. She did have a dilated right ventricle. Certainly her weight has not gotten any less since that time. Her increased shortness of breath and lower extremity edema are concerning for right-sided heart failure. I will obtain a 2D echocardiogram. It is going to be a but hopefully we can get some information. Difficult study (3) Venous stasis dermatitis of both lower extremities Is this a current diagnosis for this admission?: Yes Plan: She does not have any evidence of cellulitis. (4) Chronic respiratory failure Is this a current diagnosis for this admission?: Yes Plan: Secondary to morbid obesity and likely obesity hypoventilation syndrome and probable congestive heart failure. She does have increased shortness of breath but this at her baseline oxygen requirements. (5) Morbid obesity with BMI of 60.0-69.9, adult Is this a current diagnosis for this admission?: Yes Plan: Certainly she would benefit from weight loss. Dietary discretion is advised (6) History of pulmonary embolism Is this a current diagnosis for this admission?: Yes Plan: She has a history of pulmonary embolism and DVT. She is maintained on full dose Lovenox at home. We will continue this here in the hospital. (7) Coronary artery disease Is this a current diagnosis for this admission?: Yes Plan: She has been started on her home regimen. (8) Hyperlipidemia Is this a current diagnosis for this admission?: Yes Plan: Continue atorvastatin (9) Hypertension Is this a current diagnosis for this admission?: Yes Plan: She will continue her home regimen. Blood pressure is well controlled at this point (10) Ambulatory dysfunction Is this a current diagnosis for this admission?: Yes Plan: I am going to get physical therapy to see the patient. (11) Full code status Is this a current diagnosis for this admission?: Yes - Time Time Spent with patient: 25-34 minutes - Inpatient Certification Medical Necessity: Other - The patient will remain in observation in the hospital. I am going to aggressively diurese her tonight. Will get physical therapy to see her make sure she can ambulate and we will get an echocardiogram. I would not be surprised if the patient did not require further diuresis prior to discharge but we will make that decision tomorrow.
--- NOTE | 2017-09-07 16:00 | RADIOLOGY REPORT (SQ) ---
EXAM DESCRIPTION: CHEST SINGLE VIEW COMPLETED DATE/TIME: 09/07/2017 3:43 pm REASON FOR STUDY: chf?? sob COMPARISON: 09/03/2017 NUMBER OF VIEWS: One view. TECHNIQUE: Single frontal radiographic view of the chest acquired. LIMITATIONS: None. FINDINGS: LUNGS AND PLEURA: Chronic interstitial changes. MEDIASTINUM AND HILAR STRUCTURES: No masses. Contour normal. HEART AND VASCULAR STRUCTURES: Heart enlarged without failure. Normal vasculature. BONES: No acute findings. HARDWARE: None in the chest. OTHER: No other significant finding. IMPRESSION: Cardiomegaly. Chronic interstitial lung disease. TECHNICAL DOCUMENTATION: JOB ID: [id number] [email or web address]- All Rights Reserved
[2017-09-07] MEDS: HYDROMORPHONE HCL INJ/PF 2 MG/ML AMPULE IV PRN ×2 (18:19→22:33)
[2017-09-07] MEDS: BUMETANIDE 1 MG TABLET PO SCH (18:21)
[2017-09-07] MEDS: ATORVASTATIN CALCIUM 40 MG TABLET PO SCH (22:08)
[2017-09-07] MEDS: ENOXAPARIN SODIUM INJ 150 MG/1 ML DISP.SYRIN SUBCUT SCH (22:09)
[2017-09-07] MEDS: MONTELUKAST SODIUM 10 MG TABLET PO SCH (22:09)
[2017-09-07] MEDS: FUROSEMIDE INJ/PF 100 MG/10 ML SDV IV SCH (22:09)
[2017-09-08] MEDS: HYDROMORPHONE HCL INJ/PF 2 MG/ML AMPULE IV PRN ×5 (03:14→21:04)
[2017-09-08] MEDS: OXYCODONE HCL IR 5 MG TABLET PO PRN ×2 (03:46→14:06)
[2017-09-08] MEDS: OXYCODONE-ACETAMINOPHEN 5-325 MG TABLET PO PRN ×3 (03:46→19:53)
[2017-09-08 05:08] LABS: ABSOLUTE BASOPHILS # (AUTO) 0.1 10^3/uL (0.0-0.2); ABSOLUTE EOSINOPHILS # (AUTO) 0.3 10^3/uL (0.0-0.6); ABSOLUTE LYMPHOCYTES (AUTO) 1.1 10^3/uL (0.5-4.7); ABSOLUTE MONOCYTES (AUTO) 0.6 10^3/uL (0.1-1.4); HEMATOCRIT 39.3 % (36.0-47.0); HEMOGLOBIN 13.2 g/dL (12.0-15.5); LYMPHOCYTES % (AUTO) 15.7 % (13-45); MEAN CORPUSCULAR HEMOGLOBIN 28.6 pg (27.0-33.4); MEAN CORPUSCULAR HGB CONC 33.5 g/dL (32.0-36.0); MEAN CORPUSCULAR VOLUME 85 fl (80-97); MONOCYTES % (AUTO) 8.6 % (3-13); PLATELET COUNT 170 10^3/uL (150-450); RED BLOOD COUNT 4.61 10^6/uL (3.72-5.28); RED CELL DISTRIBUTION WIDTH 14.8 % (11.5-14.0); SEGMENTED NEUTROPHILS % (AUTO) 70.7 % (42-78); TOTAL CELLS COUNTED % (AUTO) 100 %; WHITE BLOOD COUNT 7.2 10^3/uL (4.0-10.5)
[2017-09-08 05:30] LABS: ANION GAP 11 (5-19); BLOOD UREA NITROGEN 18 mg/dL (7-20); CALCIUM 9.4 mg/dL (8.4-10.2); CARBON DIOXIDE 34 mmol/L (22-30); CHLORIDE 93 mmol/L (98-107); CREATINE KINASE 50 U/L (30-135); GLUCOSE 140 mg/dL (75-110); POTASSIUM 3.8 mmol/L (3.6-5.0); SODIUM 138.2 mmol/L (137-145)
[2017-09-08 05:45] LABS: CREATINE KINASE MB < 0.22 ng/mL (<4.55); TROPONIN I < 0.012 ng/mL
[2017-09-08] MEDS: FAMOTIDINE 20 MG TABLET PO SCH (09:35)
[2017-09-08] MEDS: MORPHINE SULFATE SR 30 MG TABLET PO SCH ×2 (09:35→21:57)
[2017-09-08] MEDS: OXYBUTYNIN CHLORIDE 5 MG TABLET PO SCH (09:35)
[2017-09-08] MEDS: CLOPIDOGREL BISULFATE 75 MG TABLET PO SCH (09:35)
[2017-09-08] MEDS: CARVEDILOL 3.125 MG TABLET PO SCH ×2 (09:36→21:58)
[2017-09-08] MEDS: POTASSIUM CHLORIDE 10 MEQ TABLET.SA PO SCH ×2 (09:36→21:56)
[2017-09-08] MEDS: DOCUSATE SODIUM 100 MG CAPSULE PO SCH (09:36)
[2017-09-08] MEDS: LISINOPRIL 5 MG TABLET PO SCH ×2 (09:36→22:11)
[2017-09-08] MEDS: FUROSEMIDE INJ/PF 100 MG/10 ML SDV IV SCH ×2 (09:36→21:58)
[2017-09-08] MEDS: DULOXETINE HCL 20 MG CAPSULE.DR PO SCH (09:37)
[2017-09-08] MEDS: BUMETANIDE 1 MG TABLET PO SCH ×2 (09:38→16:58)
[2017-09-08] MEDS: ENOXAPARIN SODIUM INJ 150 MG/1 ML DISP.SYRIN SUBCUT SCH ×2 (09:39→22:04)
[2017-09-08] MEDS: FERROUS SULFATE 325 MG TABLET PO SCH (09:40)
--- NOTE | 2017-09-08 15:42 | PDOC PROGRESS REPORT ---
Subjective Progress Note for:: 09/08/17 Subjective:: The patient is a morbidly obese 47-year-old female with a past medical history significant for chronic respiratory failure on 3 L of oxygen at home. She has a history of coronary artery disease history of DVT and PE. She is maintained on Lovenox therapy. She has hyperlipidemia and hypertension. The patient has had an increasing history over the past couple of weeks of increased shortness of breath. She also states that she has had increasing lower extremity edema and as her legs have become more swollen they have become significantly painful. Her last echocardiogram was in September 2015. She was admitted to the hospital for IV diuresis. Today edema is improved. She is being diuresed with IV Lasix and tolerating it well. She denies fever or chills. No chest pain or heart palpitations that she is aware of. She is having difficulty lying flat and states that she has increased shortness of breath although she is at her baseline oxygen requirements at this point. She has had no nausea, vomiting or diarrhea. No abdominal pain. The patient does not feel like she is voiding as much as she should be and she has been afraid to drink water at home because she did not want to make the swelling any worse. She also states that she has been having difficulty ambulating due to the significant pain in her lower extremities. Reason For Visit: VENOUS STASIS HEART FAILURE Physical Exam Vital Signs: Temp Pulse Resp BP Pulse Ox 97.9 F 61 20 106/64 96 09/08/17 12:23 09/08/17 12:23 09/08/17 12:23 09/08/17 12:23 09/08/17 12:23 Intake & Output 09/07/17 09/08/17 09/09/17 06:59 06:59 06:59 Intake Total 620 Output Total 1400 Balance -780 Weight 171 kg 188.8 kg General appearance: PRESENT: no acute distress, morbidly obese, well-developed, well-nourished Head exam: PRESENT: atraumatic, normocephalic Eye exam: PRESENT: conjunctiva pink, EOMI, PERRLA. ABSENT: scleral icterus Ear exam: PRESENT: normal external ear exam Mouth exam: PRESENT: moist, tongue midline Neck exam: ABSENT: carotid bruit, JVD, lymphadenopathy, thyromegaly Respiratory exam: PRESENT: decreased breath sounds - bilataral bases, symmetrical, unlabored Cardiovascular exam: PRESENT: RRR. ABSENT: diastolic murmur, rubs, systolic murmur Pulses: PRESENT: normal carotid pulses, normal radial pulses Vascular exam: PRESENT: normal capillary refill GI/Abdominal exam: PRESENT: normal bowel sounds, soft. ABSENT: distended, guarding, mass, organolmegaly, rebound, tenderness Rectal exam: PRESENT: deferred Extremities exam: PRESENT: calf tenderness, +2 edema - bilateral lower extremities Musculoskeletal exam: PRESENT: ambulatory, full ROM, tenderness - lower legs Neurological exam: PRESENT: alert, awake, oriented to person, oriented to place , oriented to time, oriented to situation, CN II-XII grossly intact. ABSENT: motor sensory deficit Psychiatric exam: PRESENT: appropriate affect, normal mood. ABSENT: homicidal ideation, suicidal ideation Skin exam: PRESENT: dry, intact, warm. ABSENT: cyanosis, rash Results Laboratory Results: 09/08/17 04:43 09/08/17 04:43 09/08/17 09/08/17 04:43 04:43 WBC 7.2 RBC 4.61 Hgb 13.2 Hct 39.3 MCV 85 MCH 28.6 MCHC 33.5 RDW 14.8 H Plt Count 170 Seg Neutrophils % 70.7 Lymphocytes % 15.7 Monocytes % 8.6 Eosinophils % 4.0 Basophils % 1.0 Absolute Neutrophils 5.0 Absolute Lymphocytes 1.1 Absolute Monocytes 0.6 Absolute Eosinophils 0.3 Absolute Basophils 0.1 Sodium 138.2 Potassium 3.8 Chloride 93 L Carbon Dioxide 34 H Anion Gap 11 BUN 18 Creatinine 0.85 Est GFR ( Amer) > 60 Est GFR (Non-Af Amer) > 60 Glucose 140 H Calcium 9.4 Magnesium 2.1 09/08/17 09/08/17 04:43 04:43 Creatine Kinase 50 CK-MB (CK-2) < 0.22 Troponin I < 0.012 Impressions: Chest X-Ray 09/07/17 00:00 IMPRESSION: Cardiomegaly. Chronic interstitial lung disease. Assessment & Plan - Diagnosis (1) Bilateral lower extremity edema Is this a current diagnosis for this admission?: Yes Plan: Continue diuresis. Improving (2) Ambulatory dysfunction Is this a current diagnosis for this admission?: Yes Plan: Improving with resolving edema (3) Congestive heart failure Qualifiers: Heart failure type: right-sided Is this a current diagnosis for this admission?: Yes Plan: Responding well to IV diuretics (4) History of pulmonary embolism Is this a current diagnosis for this admission?: Yes (5) Hyperlipidemia Is this a current diagnosis for this admission?: Yes Plan: Continue statin (6) Hypertension Qualifiers: Hypertension type: essential hypertension Qualified Code(s): I10 - Essential (primary) hypertension Is this a current diagnosis for this admission?: Yes Plan: Patient is normotensive (7) Morbid obesity with BMI of 60.0-69.9, adult Is this a current diagnosis for this admission?: Yes Plan: Counseled (8) Chronic respiratory failure Is this a current diagnosis for this admission?: Yes (9) Coronary artery disease Qualifiers: Coronary Disease-Associated Artery/Lesion type: [place] artery Associated angina: without angina Is this a current diagnosis for this admission?: Yes Plan: Continue home medications (10) History of uterine cancer Is this a current diagnosis for this admission?: Yes - Time Time Spent with patient: 25-34 minutes Medications reviewed and adjusted accordingly: Yes Anticipated discharge: Home with Homehealth
[2017-09-08] MEDS: ONDANSETRON 4 MG TAB.RAPDIS PO PRN (18:44)
[2017-09-08] MEDS ORDERED: METOLAZONE 5 MG TABLET PO ONE (21:30)
[2017-09-08] MEDS: ATORVASTATIN CALCIUM 40 MG TABLET PO SCH (21:57)
[2017-09-08] MEDS: MONTELUKAST SODIUM 10 MG TABLET PO SCH (21:59)
[2017-09-09] MEDS: HYDROMORPHONE HCL INJ/PF 2 MG/ML AMPULE IV PRN ×5 (01:30→21:59)
[2017-09-09 06:37] LABS: ANION GAP 11 (5-19); BLOOD UREA NITROGEN 24 mg/dL (7-20); CALCIUM 9.6 mg/dL (8.4-10.2); CARBON DIOXIDE 36 mmol/L (22-30); CHLORIDE 92 mmol/L (98-107); GLUCOSE 127 mg/dL (75-110); POTASSIUM 3.7 mmol/L (3.6-5.0); SODIUM 139.1 mmol/L (137-145)
[2017-09-09] MEDS: OXYCODONE-ACETAMINOPHEN 5-325 MG TABLET PO PRN (06:39)
[2017-09-09] MEDS: BUMETANIDE 1 MG TABLET PO SCH ×2 (10:03→23:59)
[2017-09-09] MEDS: DOCUSATE SODIUM 100 MG CAPSULE PO SCH (10:03)
[2017-09-09] MEDS: POTASSIUM CHLORIDE 10 MEQ TABLET.SA PO SCH ×2 (10:04→23:59)
[2017-09-09] MEDS: DULOXETINE HCL 20 MG CAPSULE.DR PO SCH (10:04)
[2017-09-09] MEDS: FAMOTIDINE 20 MG TABLET PO SCH (10:04)
[2017-09-09] MEDS: FERROUS SULFATE 325 MG TABLET PO SCH (10:04)
[2017-09-09] MEDS: CLOPIDOGREL BISULFATE 75 MG TABLET PO SCH (10:04)
[2017-09-09] MEDS: FUROSEMIDE INJ/PF 100 MG/10 ML SDV IV SCH ×2 (10:05→23:59)
[2017-09-09] MEDS: MORPHINE SULFATE SR 30 MG TABLET PO SCH (10:05)
[2017-09-09] MEDS: CARVEDILOL 3.125 MG TABLET PO SCH ×2 (10:05→23:59)
[2017-09-09] MEDS: ENOXAPARIN SODIUM INJ 150 MG/1 ML DISP.SYRIN SUBCUT SCH ×2 (10:07→22:05)
[2017-09-09] MEDS: LISINOPRIL 5 MG TABLET PO SCH ×2 (10:13→23:59)
[2017-09-09] MEDS: OXYBUTYNIN CHLORIDE 5 MG TABLET PO SCH (10:13)
[2017-09-09] MEDS: ONDANSETRON 4 MG TAB.RAPDIS PO PRN (13:07)
--- NOTE | 2017-09-09 15:54 | PDOC PROGRESS REPORT ---
Subjective Progress Note for:: 09/09/17 Subjective:: Patient states she is nauseous but otherwise the shortness of breath is somewhat improved she also states that there is decrease Edema in the lower extremities She has no nausea no vomiting no diarrhea and no chest pain Reason For Visit: VENOUS STASIS HEART FAILURE Physical Exam Vital Signs: Temp Pulse Resp BP Pulse Ox 97.8 F 90 20 115/64 94 09/09/17 11:22 09/09/17 14:00 09/09/17 11:22 09/09/17 11:22 09/09/17 11:22 Intake & Output 09/08/17 09/09/17 09/10/17 00:59 00:59 00:59 Intake Total 480 1630 250 Output Total 1100 2200 0 Balance -620 -570 250 Weight 171 kg 188.8 kg 186.8 kg General appearance: PRESENT: no acute distress, morbidly obese, well-developed, well-nourished Head exam: PRESENT: atraumatic, normocephalic Eye exam: PRESENT: conjunctiva pink, EOMI, PERRLA. ABSENT: scleral icterus Ear exam: PRESENT: normal external ear exam Mouth exam: PRESENT: moist, tongue midline Neck exam: ABSENT: carotid bruit, JVD, lymphadenopathy, thyromegaly Respiratory exam: PRESENT: decreased breath sounds - bilataral bases, symmetrical, unlabored Cardiovascular exam: PRESENT: RRR. ABSENT: diastolic murmur, rubs, systolic murmur Pulses: PRESENT: normal carotid pulses, normal radial pulses Vascular exam: PRESENT: normal capillary refill GI/Abdominal exam: PRESENT: normal bowel sounds, soft. ABSENT: distended, guarding, mass, organolmegaly, rebound, tenderness Rectal exam: PRESENT: deferred Extremities exam: PRESENT: calf tenderness, +1 edema - bilateral lower extremities Musculoskeletal exam: PRESENT: ambulatory, full ROM, tenderness - lower legs Neurological exam: PRESENT: alert, awake, oriented to person, oriented to place , oriented to time, oriented to situation, CN II-XII grossly intact. ABSENT: motor sensory deficit Psychiatric exam: PRESENT: appropriate affect, normal mood. ABSENT: homicidal ideation, suicidal ideation Skin exam: PRESENT: dry, intact, warm. ABSENT: cyanosis, rash Results Laboratory Results: 09/08/17 04:43 09/09/17 04:47 09/09/17 04:47 Sodium 139.1 Potassium 3.7 Chloride 92 L Carbon Dioxide 36 H Anion Gap 11 BUN 24 H Creatinine 0.96 Est GFR ( Amer) > 60 Est GFR (Non-Af Amer) > 60 Glucose 127 H Calcium 9.6 09/08/17 09/08/17 04:43 04:43 Creatine Kinase 50 CK-MB (CK-2) < 0.22 Troponin I < 0.012 Impressions: Chest X-Ray 09/07/17 00:00 IMPRESSION: Cardiomegaly. Chronic interstitial lung disease. Assessment & Plan - Time Time Spent with patient: (1) Bilateral lower extremity edema Is this a current diagnosis for this admission?: Yes Plan: Continue diuresis. Improving Edema likely secondary to venous stasis There is a very low possibility of DVT as patient is chronically anticoagulated with Lovenox (2) Ambulatory dysfunction Is this a current diagnosis for this admission?: Yes Plan: Improving with resolving edema ; will request PT evaluation on Sunday (3) Congestive heart failure Qualifiers: Heart failure type: right-sided Is this a current diagnosis for this admission?: Yes Plan: Responding well to IV diuretics last echocardiogram performed in 2015 showed preserved EF with concentric left ventricular hypertrophy (4) History of pulmonary embolism Is this a current diagnosis for this admission?: Yes Continue Lovenox at 1 mg/kg every 12 H (5) Hyperlipidemia Is this a current diagnosis for this admission?: Yes Plan: Continue statin (6) Hypertension Qualifiers: Hypertension type: essential hypertension Qualified Code(s): I10 - Essential (primary) hypertension Is this a current diagnosis for this admission?: Yes Plan: Patient is normotensive (7) Morbid obesity with BMI of 60.0-69.9, adult Is this a current diagnosis for this admission?: Yes Plan: Counseled (8) Chronic respiratory failure Is this a current diagnosis for this admission?: Yes (9) Coronary artery disease Qualifiers: Coronary Disease-Associated Artery/Lesion type: [place] artery Associated angina: without angina Is this a current diagnosis for this admission?: Yes Plan: Continue home medications (10) History of uterine cancer Is this a current diagnosis for this admission?: Yes Continue diuresis Initiate physical therapy Patient appears extremely debilitated Time Spent with patient: 25-34 minutes
[2017-09-09] MEDS: PROCHLORPERAZINE MALEATE 10 MG TABLET PO PRN ×2 (16:53→22:04)
[2017-09-09] MEDS: ONDANSETRON HCL INJ/PF 4 MG/2 ML SDV IV PRN (17:23)
--- NOTE | 2017-09-09 20:34 | RADIOLOGY REPORT (SQ) ---
EXAM DESCRIPTION: ACUTE ABDOMEN SERIES COMPLETED DATE/TIME: 09/09/2017 8:24 pm REASON FOR STUDY: Intractable nausea COMPARISON: 09/07/2017 radiographs of the chest. NUMBER OF VIEWS: Three views. TECHNIQUE: Frontal chest, supine abdomen and upright/decubitus abdomen radiographic images acquired. LIMITATIONS: Morbid obesity. FINDINGS: CHEST: Low volumes with areas of subsegmental atelectasis. Similar appearance to prior. No abnormal gas or fluid. Stable cardiomediastinal silhouette. FREE AIR: None. No abnormal gas collections. BOWEL GAS PATTERN: Nonobstructive pattern. No dilated loops or air fluid levels. CALCIFICATIONS: No suspicious calcifications. Presumed phleboliths in the pelvis. HARDWARE: None in the abdomen. SOFT TISSUES: No gross mass or suggestion of organomegaly. BONES: No acute fracture. No worrisome bone lesions. OTHER: No other significant finding. IMPRESSION: NO RADIOGRAPHIC EVIDENCE FOR ACUTE ABDOMINAL DISEASE. TECHNICAL DOCUMENTATION: JOB ID: [id number] [employer]- All Rights Reserved
[2017-09-09] MEDS ORDERED: LACTULOSE SYRUP 20 GM/30 ML UDCUP PO ONE (20:38)
[2017-09-09] MEDS ORDERED: CALCIUM CARBONATE 500 MG TAB.CHEW PO PRN (20:38)
[2017-09-09 22:32] LABS: CREATINE KINASE MB < 0.22 ng/mL (<4.55); TROPONIN I < 0.012 ng/mL
[2017-09-09] MEDS: ATORVASTATIN CALCIUM 40 MG TABLET PO SCH (23:59)
[2017-09-09] MEDS: MONTELUKAST SODIUM 10 MG TABLET PO SCH (23:59)
[2017-09-10] MEDS: HYDROMORPHONE HCL INJ/PF 2 MG/ML AMPULE IV PRN ×4 (01:31→22:59)
[2017-09-10] MEDS: ONDANSETRON HCL INJ/PF 4 MG/2 ML SDV IV PRN ×3 (01:32→22:59)
[2017-09-10 03:54] LABS: HEMATOCRIT 46.3 % (36.0-47.0); MEAN CORPUSCULAR HEMOGLOBIN 28.6 pg (27.0-33.4); MEAN CORPUSCULAR HGB CONC 34.4 g/dL (32.0-36.0); MEAN CORPUSCULAR VOLUME 83 fl (80-97); PLATELET COUNT 229 10^3/uL (150-450); RED BLOOD COUNT 5.58 10^6/uL (3.72-5.28); RED CELL DISTRIBUTION WIDTH 14.7 % (11.5-14.0)
[2017-09-10 03:55] LABS: HEMOGLOBIN 15.9 g/dL (12.0-15.5)
[2017-09-10 04:06] LABS: ANION GAP 16 (5-19); BLOOD UREA NITROGEN 27 mg/dL (7-20); CALCIUM 10.5 mg/dL (8.4-10.2); CARBON DIOXIDE 34 mmol/L (22-30); CHLORIDE 87 mmol/L (98-107); GLUCOSE 203 mg/dL (75-110); POTASSIUM 3.8 mmol/L (3.6-5.0); SODIUM 136.7 mmol/L (137-145)
[2017-09-10 04:22] LABS: CREATINE KINASE MB < 0.22 ng/mL (<4.55); TROPONIN I < 0.012 ng/mL
[2017-09-10] MEDS: ENOXAPARIN SODIUM INJ 150 MG/1 ML DISP.SYRIN SUBCUT SCH ×2 (09:43→23:00)
[2017-09-10 10:49] LABS: CREATINE KINASE MB < 0.22 ng/mL (<4.55)
[2017-09-10 10:54] LABS: TROPONIN I < 0.012 ng/mL
[2017-09-10] MEDS ORDERED: MAG HYDROX/AL HYDROX/SIMETH SUSP 30 ML UDCUP PO PRN (13:00)
[2017-09-10] MEDS: LISINOPRIL 5 MG TABLET PO SCH ×2 (14:18→23:08)
[2017-09-10] MEDS: BUMETANIDE 1 MG TABLET PO SCH ×2 (14:18→17:56)
[2017-09-10] MEDS: PROMETHAZINE HCL INJ 25 MG/1 ML VIAL IV PRN (14:18)
[2017-09-10] MEDS: POTASSIUM CHLORIDE 10 MEQ TABLET.SA PO SCH ×2 (14:18→23:08)
[2017-09-10] MEDS: CARVEDILOL 3.125 MG TABLET PO SCH ×2 (14:18→23:08)
[2017-09-10] MEDS: DULOXETINE HCL 20 MG CAPSULE.DR PO SCH (15:59)
[2017-09-10] MEDS: CLOPIDOGREL BISULFATE 75 MG TABLET PO SCH (15:59)
[2017-09-10] MEDS: OXYBUTYNIN CHLORIDE 5 MG TABLET PO SCH (15:59)
[2017-09-10] MEDS: FERROUS SULFATE 325 MG TABLET PO SCH (15:59)
[2017-09-10] MEDS: DOCUSATE SODIUM 100 MG CAPSULE PO SCH (15:59)
[2017-09-10] MEDS: FAMOTIDINE 20 MG TABLET PO SCH (15:59)
[2017-09-10 16:32] LABS: APPEARANCE,URINE SLIGHTLY-CLOUDY; BILIRUBIN,URINE NEGATIVE (NEGATIVE); COLOR,URINE AMBER; GLUCOSE, URINE NEGATIVE (NEGATIVE); KETONES,URINE NEGATIVE (NEGATIVE); LEUKOCYTE ESTERASE,URINE NEGATIVE (NEGATIVE); NITRITE,URINE NEGATIVE (NEGATIVE); PROTEIN,URINE 100 mg/dL (NEGATIVE); URINE SPECIFIC GRAVITY 1.027; UROBILINOGEN,URINE NEGATIVE mg/dL (<2.0)
[2017-09-10] MEDS: METOCLOPRAMIDE HCL INJ/PF 10 MG/2 ML SDV IV SCH (17:54)
--- NOTE | 2017-09-10 18:21 | PDOC PROGRESS REPORT ---
Subjective Progress Note for:: 09/10/17 Subjective:: The patient is a morbidly obese 47-year-old female with a past medical history significant for chronic respiratory failure on 3 L of oxygen at home. She has a history of coronary artery disease history of DVT and PE. She is maintained on Lovenox therapy. She has hyperlipidemia and hypertension. The patient has had an increasing history over the past couple of weeks of increased shortness of breath. She also states that she has had increasing lower extremity edema and as her legs have become more swollen they have become significantly painful. Her last echocardiogram was in September 2015. She was admitted to the hospital for IV diuresis. Today edema is improved. She is being diuresed with IV Lasix and tolerating it well. She denies fever or chills. No chest pain or heart palpitations that she is aware of. She is having difficulty lying flat and states that she has increased shortness of breath although she is at her baseline oxygen requirements at this point. She is complaining of nausea and bilious vomiting. Her lower extremity edema is almost completely resolved Reason For Visit: CHF EXACERBATION,CAD,HTN Physical Exam Vital Signs: Temp Pulse Resp BP Pulse Ox 98.1 F 100 20 152/90 H 100 09/10/17 16:00 09/10/17 16:00 09/10/17 16:00 09/10/17 16:00 09/10/17 16:00 Intake & Output 09/09/17 09/10/17 09/11/17 06:59 06:59 06:59 Intake Total 1740 220 40 Output Total 1900 500 Balance -160 -280 40 Weight 186.8 kg 189.8 kg General appearance: PRESENT: no acute distress, morbidly obese, well-developed, well-nourished Head exam: PRESENT: atraumatic, normocephalic Eye exam: PRESENT: conjunctiva pale Ear exam: PRESENT: normal external ear exam Mouth exam: PRESENT: moist, tongue midline Neck exam: ABSENT: carotid bruit, JVD, lymphadenopathy, thyromegaly Respiratory exam: PRESENT: clear to auscultation astrid. ABSENT: rales, rhonchi, wheezes Cardiovascular exam: PRESENT: RRR. ABSENT: diastolic murmur, rubs, systolic murmur Pulses: PRESENT: normal dorsalis pedis pul Vascular exam: PRESENT: normal capillary refill GI/Abdominal exam: PRESENT: normal bowel sounds, soft. ABSENT: distended, guarding, mass, organolmegaly, rebound, tenderness Rectal exam: PRESENT: deferred Extremities exam: PRESENT: full ROM. ABSENT: calf tenderness, clubbing, pedal edema Musculoskeletal exam: PRESENT: ambulatory, full ROM, normal inspection Neurological exam: PRESENT: alert, awake, oriented to person, oriented to place , oriented to time, oriented to situation, CN II-XII grossly intact. ABSENT: motor sensory deficit Psychiatric exam: PRESENT: flat affect Skin exam: PRESENT: dry, intact, warm. ABSENT: cyanosis, rash Results Laboratory Results: 09/10/17 03:36 09/10/17 03:36 09/10/17 09/10/17 09/10/17 03:36 03:36 16:00 WBC 10.0 RBC 5.58 H Hgb 15.9 H D Hct 46.3 MCV 83 MCH 28.6 MCHC 34.4 RDW 14.7 H Plt Count 229 Sodium 136.7 L Potassium 3.8 Chloride 87 L Carbon Dioxide 34 H Anion Gap 16 BUN 27 H Creatinine 0.94 Est GFR ( Amer) > 60 Est GFR (Non-Af Amer) > 60 Glucose 203 H Calcium 10.5 H Urine Color FLAVIO Urine Appearance SLIGHTLY-CLOUDY Urine pH 5.0 Ur Specific [place] 1.027 Urine Protein 100 H Urine Glucose (UA) NEGATIVE Urine Ketones NEGATIVE Urine Blood LARGE H Urine Nitrite NEGATIVE Ur Leukocyte Esterase NEGATIVE Urine WBC (Auto) 2 Urine RBC (Auto) 49 09/08/17 09/08/17 09/09/17 04:43 04:43 21:30 Creatine Kinase 50 42 CK-MB (CK-2) < 0.22 Troponin I < 0.012 09/09/17 09/10/17 09/10/17 21:30 03:36 03:36 Creatine Kinase 40 CK-MB (CK-2) < 0.22 < 0.22 Troponin I < 0.012 < 0.012 09/10/17 09/10/17 09:46 09:46 Creatine Kinase 35 CK-MB (CK-2) < 0.22 Troponin I < 0.012 Impressions: Chest X-Ray 09/07/17 00:00 IMPRESSION: Cardiomegaly. Chronic interstitial lung disease. Acute Abdomen Series 09/09/17 00:00 IMPRESSION: NO RADIOGRAPHIC EVIDENCE FOR ACUTE ABDOMINAL DISEASE. Assessment & Plan - Diagnosis (1) Bilateral lower extremity edema Is this a current diagnosis for this admission?: Yes Plan: Continue diuresis. Almost completely resolved. Will decrease diuresis (2) Nausea and vomiting Qualifiers: Vomiting type: bilious vomiting Qualified Code(s): R11.14 - Bilious vomiting Is this a current diagnosis for this admission?: Yes Plan: Abdominal series showed no signs of pathology. She states zofran does not work for her. Will add phenergan and reglan (3) Ambulatory dysfunction Is this a current diagnosis for this admission?: Yes Plan: Improving with resolving edema (4) Congestive heart failure Qualifiers: Heart failure type: right-sided Is this a current diagnosis for this admission?: Yes Plan: Responding well to IV diuretics (5) History of pulmonary embolism Is this a current diagnosis for this admission?: Yes Plan: She is on lovenox bid at home (6) Hyperlipidemia Is this a current diagnosis for this admission?: Yes Plan: Continue statin (7) Hypertension Qualifiers: Hypertension type: essential hypertension Qualified Code(s): I10 - Essential (primary) hypertension Is this a current diagnosis for this admission?: Yes Plan: Patient is normotensive (8) Morbid obesity with BMI of 60.0-69.9, adult Is this a current diagnosis for this admission?: Yes Plan: Counseled (9) Chronic respiratory failure Is this a current diagnosis for this admission?: Yes Plan: On oxygen at 3l/min via [place] (10) Coronary artery disease Qualifiers: Coronary Disease-Associated Artery/Lesion type: [place] artery Associated angina: without angina Is this a current diagnosis for this admission?: Yes Plan: Continue home medications (11) History of uterine cancer Is this a current diagnosis for this admission?: Yes - Time Time Spent with patient: 25-34 minutes Total Critical Time (Minutes): 20 Medications reviewed and adjusted accordingly: Yes
--- NOTE | 2017-09-10 19:21 | XCELERA REPORT ---
[address] [address] Transthoracic Echocardiogram Report Name: DOMONIQUE DOMINGUEZ Age: 47 yrs Gender: Female : 1970 Patient Status: Inpatient Patient Location: [address] [place] [address] Study Date: 09/10/2017 10:41 AM Height: 65 in Weight: 376 lb BSA: 2.6 m2 Procedure: A complete two-dimensional transthoracic echocardiogram was performed (2D, M-mode, spectral and color flow Doppler). The study was technically difficult with many images being suboptimal in quality. The study was technically limited with all images being suboptimal in quality. Reason For Study: suspect corpulmonale, LE swelling, sob, morbid obe Ordering Physician: ANTOINETTE PETERS Performed By: Laurence Mora Interpretation Summary The study was technically difficult with many images being suboptimal in quality. The left ventricular ejection fraction is preserved. Consider additional methods to assess LVEF such as MUGA scan, CTA heart, cardiac MRI, ZACH, etc. if clinically indicated. The left ventricle is grossly normal size. LV diastolic function could not be adequately assessed. Regional wall motion abnormalities cannot be excluded due to limited visualization. The right ventricle is not well visualized secondary to technical limitations The left atrial size is normal. Right atrium not well visualized secondary to technical limitations There is a trace amount of mitral regurgitation There is no mitral valve stenosis. No aortic regurgitation is present. There is no aortic valve stenosis The aortic valve is not well visualized secondary to technical limitations There is no tricuspid stenosis. No tricuspid regurgitation. There is no pericardial effusion. MMode/2D Measurements & Calculations RVDd: 2.1 cm LVIDd: 4.2 cmFS: 31.6 % Ao root diam: 3.6 cm IVSd: 1.0 cm LVIDs: 2.9 cmEDV(Teich): 78.6 ml LVPWd: 1.0 cmESV(Teich): 31.4 ml Ao root area: 10.2 cm2 EF(Teich): 60.0 % LA dimension: 3.3 cm LVOT diam: 2.4 cm LVOT area: 4.4 cm2 Doppler Measurements & Calculations MV E max darlyn: MV P1/2t max darlyn: Ao V2 max: LV V1 max P.7 cm/sec 43.0 cm/sec 109.9 cm/sec 2.6 mmHg MV A max darlyn: MV P1/2t: 49.8 msec Ao max PG: LV V1 max: 34.8 cm/sec MVA(P1/2t): 4.4 cm2 4.8 mmHg 80.1 cm/sec MV E/A: 1.2 MV dec slope: ELISA(V,D): 3.2 cm2 253.1 cm/sec2 PA V2 max: 82.9 cm/sec PA max P.8 mmHg Left Ventricle The left ventricle is grossly normal size. The left ventricular ejection fraction is preserved. Consider additional methods to assess LVEF such as MUGA scan, CTA heart, cardiac MRI, ZACH, etc. if clinically indicated. LV diastolic function could not be adequately assessed. Regional wall motion abnormalities cannot be excluded due to limited visualization. Right Ventricle The right ventricle is not well visualized secondary to technical limitations. Right ventricular function cannot be assessed due to poor image quality. Atria Right atrium not well visualized secondary to technical limitations. The left atrial size is normal. Interarterial septum not well visualized and not well dopplered. Cannot comment on ASD/PFO presence. Mitral Valve The mitral valve is not well visualized. There is no mitral valve stenosis. There is a trace amount of mitral regurgitation. Aortic Valve The aortic valve is not well visualized secondary to technical limitations. There is no aortic valve stenosis. No aortic regurgitation is present. Tricuspid Valve The tricuspid valve is not well visualized secondary to technical limitations. There is no tricuspid stenosis. No tricuspid regurgitation. Great Vessels The aortic root is not well visualized. The inferior vena cava was not well visualized. Effusions There is no pericardial effusion. : ANTOINETTE PETERS > Gomez Oneill
[2017-09-10] MEDS: MONTELUKAST SODIUM 10 MG TABLET PO SCH (23:08)
[2017-09-10] MEDS: ATORVASTATIN CALCIUM 40 MG TABLET PO SCH (23:08)
[2017-09-11] MEDS: METOCLOPRAMIDE HCL INJ/PF 10 MG/2 ML SDV IV SCH ×4 (00:33→18:31)
[2017-09-11] MEDS ORDERED: FUROSEMIDE INJ/PF 100 MG/10 ML SDV IV SCH (10:00)
[2017-09-11] MEDS: DULOXETINE HCL 20 MG CAPSULE.DR PO SCH (11:20)
[2017-09-11] MEDS: BUMETANIDE 1 MG TABLET PO SCH ×2 (11:20→17:36)
[2017-09-11] MEDS: LISINOPRIL 5 MG TABLET PO SCH ×2 (11:20→22:06)
[2017-09-11] MEDS: ENOXAPARIN SODIUM INJ 150 MG/1 ML DISP.SYRIN SUBCUT SCH ×2 (11:20→21:59)
[2017-09-11] MEDS: DOCUSATE SODIUM 100 MG CAPSULE PO SCH (11:20)
[2017-09-11] MEDS: CLOPIDOGREL BISULFATE 75 MG TABLET PO SCH (11:20)
[2017-09-11] MEDS: FAMOTIDINE 20 MG TABLET PO SCH (11:20)
[2017-09-11] MEDS: OXYBUTYNIN CHLORIDE 5 MG TABLET PO SCH (11:20)
[2017-09-11] MEDS: CARVEDILOL 3.125 MG TABLET PO SCH ×2 (11:20→22:06)
[2017-09-11] MEDS: FERROUS SULFATE 325 MG TABLET PO SCH (11:20)
[2017-09-11] MEDS: POTASSIUM CHLORIDE 10 MEQ TABLET.SA PO SCH (11:20)
[2017-09-11] MEDS: HYDROMORPHONE HCL INJ/PF 2 MG/ML AMPULE IV PRN ×3 (11:29→21:54)
[2017-09-11] MEDS: PROMETHAZINE HCL INJ 25 MG/1 ML VIAL IV PRN ×2 (11:30→21:54)
[2017-09-11] MEDS ORDERED: NORMAL SALINE 1000 ML 1,000 ML IV PRN (14:45)
--- NOTE | 2017-09-11 14:45 | PDOC PROGRESS REPORT ---
Subjective Progress Note for:: 09/11/17 Subjective:: Patient 47-year-old morbidly obese with chronic hypoxic respiratory failure on 3 L oxygen. Patient also has coronary artery disease with DVT and PE. Patient is on Lovenox. Patient states that the swelling on her legs is significantly improved however patient complains of nausea vomiting. She denies any abdominal pain. Patient states that Phenergan has helped quite a bit with vomiting however she is still nauseated. Reason For Visit: CHF EXACERBATION,CAD,HTN Physical Exam Vital Signs: Temp Pulse Resp BP Pulse Ox 98.8 F 101 H 16 156/89 H 96 09/11/17 07:13 09/11/17 07:13 09/11/17 07:13 09/11/17 07:13 09/11/17 07:13 Intake & Output 09/10/17 09/11/17 09/12/17 06:59 06:59 06:59 Intake Total 220 140 Output Total 500 Balance -280 140 Weight 189.8 kg 176.8 kg General appearance: PRESENT: no acute distress, morbidly obese Head exam: PRESENT: normocephalic Eye exam: PRESENT: EOMI. ABSENT: scleral icterus Ear exam: PRESENT: normal external ear exam Mouth exam: PRESENT: moist Neck exam: ABSENT: carotid bruit, JVD, lymphadenopathy, thyromegaly Respiratory exam: PRESENT: clear to auscultation astrid. ABSENT: rales, rhonchi, wheezes Cardiovascular exam: PRESENT: RRR. ABSENT: diastolic murmur, rubs, systolic murmur Pulses: PRESENT: normal dorsalis pedis pul Vascular exam: PRESENT: normal capillary refill GI/Abdominal exam: PRESENT: normal bowel sounds, soft. ABSENT: distended, guarding, mass, organolmegaly, rebound, tenderness Rectal exam: PRESENT: deferred Extremities exam: PRESENT: full ROM. ABSENT: calf tenderness, clubbing, pedal edema Neurological exam: PRESENT: alert, awake, oriented to person, oriented to place , oriented to time, oriented to situation, CN II-XII grossly intact. ABSENT: motor sensory deficit Psychiatric exam: PRESENT: appropriate affect, normal mood. ABSENT: homicidal ideation, suicidal ideation Skin exam: PRESENT: dry, intact, warm. ABSENT: cyanosis, rash Results Laboratory Results: 09/10/17 03:36 09/10/17 03:36 09/10/17 16:00 Urine Color FLAVIO Urine Appearance SLIGHTLY-CLOUDY Urine pH 5.0 Ur Specific [place] 1.027 Urine Protein 100 H Urine Glucose (UA) NEGATIVE Urine Ketones NEGATIVE Urine Blood LARGE H Urine Nitrite NEGATIVE Ur Leukocyte Esterase NEGATIVE Urine WBC (Auto) 2 Urine RBC (Auto) 49 09/08/17 09/08/17 09/09/17 04:43 04:43 21:30 Creatine Kinase 50 42 CK-MB (CK-2) < 0.22 Troponin I < 0.012 09/09/17 09/10/17 09/10/17 21:30 03:36 03:36 Creatine Kinase 40 CK-MB (CK-2) < 0.22 < 0.22 Troponin I < 0.012 < 0.012 09/10/17 09/10/17 09:46 09:46 Creatine Kinase 35 CK-MB (CK-2) < 0.22 Troponin I < 0.012 Impressions: Chest X-Ray 09/07/17 00:00 IMPRESSION: Cardiomegaly. Chronic interstitial lung disease. Acute Abdomen Series 09/09/17 00:00 IMPRESSION: NO RADIOGRAPHIC EVIDENCE FOR ACUTE ABDOMINAL DISEASE. Assessment & Plan - Diagnosis (1) Ambulatory dysfunction Is this a current diagnosis for this admission?: Yes Plan: Possibly due to patient size and pedal edema. PT consulted. (2) Bilateral lower extremity edema Is this a current diagnosis for this admission?: Yes Plan: Most likely due to right-sided heart failure. Patient swelling has improved with diuretics. Will stop IV Lasix will continue p.o. Bumex. (3) Chronic respiratory failure Is this a current diagnosis for this admission?: Yes Plan: With chronic hypoxic respiratory failure. Patient on supplemental oxygen at home. Patient still on her baseline 3 L. [place] with no signs of distress at rest. May have distress with ambulation however this may be port related to patient's morbid obesity. (4) Congestive heart failure Qualifiers: Heart failure type: right-sided Is this a current diagnosis for this admission?: Yes Plan: Patient with right-sided heart failure. Patient heart failure improved with diuretics. Will continue p.o. Bumex. Will discontinue IV Lasix at this time as patient appears to be euvolemic. (5) Coronary artery disease Qualifiers: Coronary Disease-Associated Artery/Lesion type: [place] artery Associated angina: without angina Is this a current diagnosis for this admission?: Yes Plan: We will continue home medications which consist of Plavix, atorvastatin, Coreg, lisinopril. (6) Hyperlipidemia Is this a current diagnosis for this admission?: Yes Plan: Continue statin (7) Hypertension Qualifiers: Hypertension type: essential hypertension Qualified Code(s): I10 - Essential (primary) hypertension Is this a current diagnosis for this admission?: Yes Plan: Continue with Coreg and lisinopril. Will continue to monitor. (8) Nausea and vomiting Qualifiers: Vomiting type: bilious vomiting Qualified Code(s): R11.14 - Bilious vomiting Is this a current diagnosis for this admission?: Yes Plan: Uncertain as to why patient is nauseated and vomiting. Patient had 2 episodes of diarrhea after being started on Reglan. Patient is not obstructed but may have ileus due to her lack of activity. Will change patient to a liquid diet at this time. Will continue as needed antiemetics and Reglan. Will decrease Reglan to 5 mg 3 times daily. (9) Morbid obesity with BMI of 60.0-69.9, adult Is this a current diagnosis for this admission?: Yes Plan: Counseled patient on diet and physical activity as tolerated. Unfortunately distance contributing to patient's story symptoms. (10) History of uterine cancer Is this a current diagnosis for this admission?: Yes Plan: Stable. - Time Time Spent with patient: Less than 15 minutes Anticipated discharge: SNF Within: within 72 hours - Inpatient Certification Medical Necessity: Other - Patient nauseated and unable to tolerate any thing by mouth vomiting. Will need resolution of the symptoms prior to discharge home.
[2017-09-11] MEDS: ONDANSETRON 4 MG TAB.RAPDIS PO PRN (18:41)
[2017-09-11 20:17] LABS: AMORPHOUS SEDIMENT,URINE TRACE /HPF; APPEARANCE,URINE SLIGHTLY-CLOUDY; BILIRUBIN,URINE NEGATIVE (NEGATIVE); GLUCOSE, URINE NEGATIVE (NEGATIVE); KETONES,URINE NEGATIVE (NEGATIVE); LEUKOCYTE ESTERASE,URINE NEGATIVE (NEGATIVE); NITRITE,URINE NEGATIVE (NEGATIVE); PROTEIN,URINE 30 mg/dL (NEGATIVE); URINE SPECIFIC GRAVITY 1.025; UROBILINOGEN,URINE NEGATIVE mg/dL (<2.0)
[2017-09-11 20:18] LABS: COLOR,URINE DARK YELLOW
[2017-09-11] MEDS: MONTELUKAST SODIUM 10 MG TABLET PO SCH (22:06)
[2017-09-11] MEDS: ATORVASTATIN CALCIUM 40 MG TABLET PO SCH (22:06)
[2017-09-12] MEDS: METOCLOPRAMIDE HCL INJ/PF 10 MG/2 ML SDV IV SCH (02:55)
[2017-09-12] MEDS: HYDROMORPHONE HCL INJ/PF 2 MG/ML AMPULE IV PRN ×5 (02:55→22:33)
[2017-09-12 07:07] LABS: ANION GAP 13 (5-19); BLOOD UREA NITROGEN 38 mg/dL (7-20); CALCIUM 9.5 mg/dL (8.4-10.2); CARBON DIOXIDE 36 mmol/L (22-30); CHLORIDE 88 mmol/L (98-107); GLUCOSE 162 mg/dL (75-110); POTASSIUM 3.6 mmol/L (3.6-5.0); SODIUM 136.9 mmol/L (137-145)
[2017-09-12 07:16] LABS: HEMOGLOBIN 14.9 g/dL (12.0-15.5); MEAN CORPUSCULAR HEMOGLOBIN 28.7 pg (27.0-33.4); MEAN CORPUSCULAR HGB CONC 33.9 g/dL (32.0-36.0); MEAN CORPUSCULAR VOLUME 84 fl (80-97); RED BLOOD COUNT 5.22 10^6/uL (3.72-5.28); RED CELL DISTRIBUTION WIDTH 14.9 % (11.5-14.0); WHITE BLOOD COUNT 10.2 10^3/uL (4.0-10.5)
[2017-09-12 07:32] LABS: PLATELET COUNT 202 10^3/uL (150-450)
[2017-09-12] MEDS: ENOXAPARIN SODIUM INJ 150 MG/1 ML DISP.SYRIN SUBCUT SCH ×2 (11:24→22:33)
[2017-09-12] MEDS: PROMETHAZINE HCL INJ 25 MG/1 ML VIAL IV PRN ×3 (11:24→22:32)
[2017-09-12] MEDS: OXYBUTYNIN CHLORIDE 5 MG TABLET PO SCH (11:27)
[2017-09-12] MEDS: BUMETANIDE 1 MG TABLET PO SCH ×2 (11:27→17:03)
[2017-09-12] MEDS: FAMOTIDINE 20 MG TABLET PO SCH (11:27)
[2017-09-12] MEDS: FERROUS SULFATE 325 MG TABLET PO SCH (11:27)
[2017-09-12] MEDS: DULOXETINE HCL 20 MG CAPSULE.DR PO SCH (11:27)
[2017-09-12] MEDS: LISINOPRIL 5 MG TABLET PO SCH (11:27)
[2017-09-12] MEDS: CLOPIDOGREL BISULFATE 75 MG TABLET PO SCH (11:27)
[2017-09-12] MEDS: DOCUSATE SODIUM 100 MG CAPSULE PO SCH (11:27)
[2017-09-12] MEDS: CARVEDILOL 3.125 MG TABLET PO SCH (11:27)
[2017-09-12 11:36] LABS: APPEARANCE,URINE SLIGHTLY-CLOUDY; BILIRUBIN,URINE NEGATIVE (NEGATIVE); COLOR,URINE YELLOW; GLUCOSE, URINE NEGATIVE (NEGATIVE); KETONES,URINE NEGATIVE (NEGATIVE); LEUKOCYTE ESTERASE,URINE NEGATIVE (NEGATIVE); NITRITE,URINE NEGATIVE (NEGATIVE); PROTEIN,URINE 30 mg/dL (NEGATIVE); URINE SPECIFIC GRAVITY 1.024
[2017-09-13] MEDS: ATORVASTATIN CALCIUM 40 MG TABLET PO SCH ×2 (00:22→22:18)
[2017-09-13] MEDS: CARVEDILOL 3.125 MG TABLET PO SCH ×3 (00:22→22:18)
[2017-09-13] MEDS: LISINOPRIL 5 MG TABLET PO SCH ×3 (00:22→22:18)
[2017-09-13] MEDS: MONTELUKAST SODIUM 10 MG TABLET PO SCH ×2 (00:22→22:18)
[2017-09-13] MEDS: PROMETHAZINE HCL INJ 25 MG/1 ML VIAL IV PRN ×3 (02:43→20:20)
[2017-09-13] MEDS: HYDROMORPHONE HCL INJ/PF 2 MG/ML AMPULE IV PRN ×3 (02:43→20:20)
--- NOTE | 2017-09-13 08:57 | RADIOLOGY REPORT (SQ) ---
EXAM DESCRIPTION: KUB/ABDOMEN (SINGLE VIEW) COMPLETED DATE/TIME: 09/13/2017 8:06 am REASON FOR STUDY: Vomiting COMPARISON: Plain films - 09/09/2017, CT scan 07/15/2016 NUMBER OF VIEWS: Four views TECHNIQUE: Supine radiographic image of the abdomen acquired. LIMITATIONS: None. FINDINGS: BOWEL GAS PATTERN: Normal bowel gas pattern. No dilated loops. CALCIFICATIONS: No suspicious calcifications. Multiple phleboliths. SOFT TISSUES: 16 cm mass in the right mid abdomen which on review of previous CT appears to be due to enlarged liver. HARDWARE: Multiple surgical clips in the right upper quadrant BONES: No acute fracture. No worrisome bone lesions. OTHER: No other significant finding. IMPRESSION: Mass in the right mid abdomen which on review of previous CT appears to be due to enlarg ed liver. Contrasted CT scan should be considered for further evaluation. TECHNICAL DOCUMENTATION: JOB ID: [id number] [employer]- All Rights Reserved
[2017-09-13] MEDS: ENOXAPARIN SODIUM INJ 150 MG/1 ML DISP.SYRIN SUBCUT SCH ×2 (10:57→22:18)
[2017-09-13] MEDS: PANTOPRAZOLE SODIUM 40 MG VIAL IV SCH ×2 (10:57→22:18)
--- NOTE | 2017-09-13 16:33 | PDOC PROGRESS REPORT ---
Subjective Progress Note for:: 09/13/17 Subjective:: Patient states that nausea is better and she would like to try real food. She would like to be can choose her forward and see if agrees with her. Review of systems All organ systems evaluated and negative except as in subjective All significant laboratories and diagnostics have been reviewed Reason For Visit: CHF EXACERBATION,CAD,HTN Physical Exam Vital Signs: Temp Pulse Resp BP Pulse Ox 98.3 F 91 16 108/73 96 09/12/17 23:08 09/13/17 02:00 09/12/17 23:08 09/12/17 23:08 09/13/17 01:28 Intake & Output 09/12/17 09/13/17 09/14/17 06:59 06:59 06:59 Intake Total 2300 2782 Output Total 280 800 Balance 2019 1981 Weight 178.9 kg 178.9 kg General appearance: PRESENT: cooperative, morbidly obese Head exam: PRESENT: atraumatic, normocephalic Eye exam: PRESENT: conjunctiva pink, EOMI, PERRLA Ear exam: PRESENT: normal external ear exam Mouth exam: PRESENT: moist Neck exam: PRESENT: full ROM. ABSENT: JVD, lymphadenopathy, tenderness Respiratory exam: PRESENT: clear to auscultation astrid Cardiovascular exam: PRESENT: RRR. ABSENT: diastolic murmur, systolic murmur Vascular exam: PRESENT: normal capillary refill GI/Abdominal exam: PRESENT: normal bowel sounds, soft, other - Difficult to assess for any masses or visceromegaly due to obesity. ABSENT: guarding, tenderness Extremities exam: PRESENT: full ROM Musculoskeletal exam: PRESENT: ambulatory Neurological exam: PRESENT: alert, awake, oriented to person, oriented to place , oriented to time, oriented to situation Psychiatric exam: PRESENT: appropriate affect, normal mood Skin exam: PRESENT: intact, normal color Results Laboratory Results: 09/12/17 04:29 09/12/17 04:29 09/12/17 09/12/17 11:04 11:04 Urine Color YELLOW Urine Appearance SLIGHTLY-CLOUDY Urine pH 6.0 Ur Specific [place] 1.024 Urine Protein 30 H Urine Glucose (UA) NEGATIVE Urine Ketones NEGATIVE Urine Blood LARGE H Urine Nitrite NEGATIVE Ur Leukocyte Esterase NEGATIVE Urine WBC (Auto) 4 Urine RBC (Auto) 99 Stool Occult Blood NEGATIVE 09/08/17 09/08/17 09/09/17 04:43 04:43 21:30 Creatine Kinase 50 42 CK-MB (CK-2) < 0.22 Troponin I < 0.012 09/09/17 09/10/17 09/10/17 21:30 03:36 03:36 Creatine Kinase 40 CK-MB (CK-2) < 0.22 < 0.22 Troponin I < 0.012 < 0.012 09/10/17 09/10/17 09:46 09:46 Creatine Kinase 35 CK-MB (CK-2) < 0.22 Troponin I < 0.012 Impressions: Chest X-Ray 09/07/17 00:00 IMPRESSION: Cardiomegaly. Chronic interstitial lung disease. Acute Abdomen Series 09/09/17 00:00 IMPRESSION: NO RADIOGRAPHIC EVIDENCE FOR ACUTE ABDOMINAL DISEASE. Assessment & Plan - Diagnosis (1) Nausea & vomiting Is this a current diagnosis for this admission?: Yes Plan: According to patient improve will try regular food and for patient pick and choose food and see what happens (2) Abdominal mass Qualifiers: Abdominal location: epigastric Qualified Code(s): R19.06 - Epigastric swelling, mass or lump Is this a current diagnosis for this admission?: Yes Plan: KUB noted and will order a CT of the abdomen and pelvis (3) Chronic respiratory failure Is this a current diagnosis for this admission?: Yes Plan: Continue with oxygen supplementation (4) Congestive heart failure Qualifiers: Heart failure type: right-sided Is this a current diagnosis for this admission?: Yes Plan: Explain in layman terms to patient her medical condition and encouraged her to lose weight. Will continue with oral diuretics since she appeared improved (5) Morbid obesity with BMI of 60.0-69.9, adult Is this a current diagnosis for this admission?: Yes Plan: Patient encouraged to lose weight (6) COPD (chronic obstructive pulmonary disease) Qualifiers: Chronic bronchitis type: unspecified Is this a current diagnosis for this admission?: Yes Plan: Continue current management (7) Sleep apnea Qualifiers: Sleep apnea type: obstructive Qualified Code(s): G47.33 - Obstructive sleep apnea (adult) (pediatric) Is this a current diagnosis for this admission?: Yes Plan: Continue with CPAP (8) Ambulatory dysfunction Is this a current diagnosis for this admission?: Yes Plan: Due to her massive weight. Will benefit from physical therapy (9) Bilateral lower extremity edema Is this a current diagnosis for this admission?: Yes Plan: Due to fluid buildup and improved since admission (10) Hypercalcemia Is this a current diagnosis for this admission?: Yes Plan: Improved since admission and likely due to poor ambulation - Time Time Spent with patient: 15-24 minutes Medications reviewed and adjusted accordingly: Yes Anticipated discharge: Home with Homehealth Within: within 48 hours - Inpatient Certification Based on my medical assessment, after consideration of the patient's comorbidities, presenting symptoms, or acuity I expect that the services needed warrant INPATIENT care.: Yes I certify that my determination is in accordance with my understanding of Medicare's requirements for reasonable and necessary INPATIENT services [42 CFR 412.3e].: Yes Medical Necessity: Need Close Monitoring Due to Risk of Patient Decompensation
[2017-09-13] MEDS: DULOXETINE HCL 20 MG CAPSULE.DR PO SCH (18:45)
[2017-09-13] MEDS: OXYBUTYNIN CHLORIDE 5 MG TABLET PO SCH (18:45)
[2017-09-13] MEDS: CLOPIDOGREL BISULFATE 75 MG TABLET PO SCH (18:45)
--- NOTE | 2017-09-13 22:23 | RADIOLOGY REPORT (SQ) ---
EXAM DESCRIPTION: CT ABD/PELVIS WITH IV ORAL COMPLETED DATE/TIME: 09/13/2017 7:52 pm REASON FOR STUDY: abdominal mass COMPARISON: 2016. TECHNIQUE: CT scan of the abdomen and pelvis performed with intravenous and oral contrast using colton bindu scanning technique with dynamic intravenous contrast injection. Images reviewed with lung, soft t issue, and bone windows. Reconstructed coronal and sagittal MPR images reviewed. Delayed images for e valuation of the urinary system also acquired. All images stored on PACS. All CT scanners at this facility use dose modulation, iterative reconstruction, and/or weight based d osing when appropriate to reduce radiation dose to as low as reasonably achievable (ALARA). [facility]: Dose Right [facility]: CareDose [facility]: Dose Right [facility]: Teradose 4D [facility]: [id number] CONTRAST TYPE AND DOSE: contrast/concentration: Isovue 370.00 mg/ml; Total Contrast Delivered: 100.0 ml; Total Saline Delivered: 35.0 ml RENAL FUNCTION: Creatinine 0.96 RADIATION DOSE: CT Rad equipment meets quality standard of care and radiation dose reduction techniq ues were employed. CTDIvol: 21.1 - 30.0 mGy. DLP: 3045 mGy-cm.. LIMITATIONS: Limited clinical information. No details regarding the suspected abdominal mass. FINDINGS: LOWER CHEST: Basilar areas of linear subsegmental atelectasis. Cardiac enlargement. LIVER: No focal mass. Prominent, 24 cm craniocaudal. SPLEEN: No focal mass. Prominent, 14 cm craniocaudal. Several adjacent splenules. PANCREAS: Mild atrophy. GALLBLADDER: Surgically absent. ADRENAL GLANDS: No significant masses or asymmetry. RIGHT KIDNEY AND URETER: No solid masses. No significant calcification. No hydronephrosis or hydroure ter. LEFT KIDNEY AND URETER: No solid masses. No significant calcification. No hydronephrosis or hydrouret er. AORTA AND VESSELS: No aneurysm. No dissection. Renal arteries, SMA, celiac without stenosis. RETROPERITONEUM: Shotty subcentimeter nodes, chronic. BOWEL AND PERITONEAL CAVITY: No obstruction. No visualized masses. No free fluid. No inflammatory ch anges or thickening of bowel wall. APPENDIX: Not visualized. PELVIS: No significant masses. Normal bladder. No free fluid. ABDOMINAL WALL: Laxity of the supraumbilical midline ventral abdominal wall with broad bulge of mesen teric fat and colon. Scattered prominent venous varices along the abdominal wall and lower chest rel atively diffusely. These feed into the femoral veins. BONES: No significant or acute findings. OTHER: No other significant finding. IMPRESSION: 1. No suggestion of abdominal mass. There is broad laxity of the supraumbilical ventra l abdominal wall without uma hernia. TECHNICAL DOCUMENTATION: JOB ID: [id number] Quality ID # [id number]: Final reports with documentation of one or more dose reduction techniques (e.g., Au tomated exposure control, adjustment of the mA and/or kV according to patient size, use of iterative reconstruction technique) 2010 [employer]- All Rights Reserved
[2017-09-14] MEDS: PROMETHAZINE HCL INJ 25 MG/1 ML VIAL IV PRN ×4 (05:13→21:28)
[2017-09-14] MEDS: HYDROMORPHONE HCL INJ/PF 2 MG/ML AMPULE IV PRN ×4 (07:59→21:26)
[2017-09-14 09:03] LABS: HEMATOCRIT 40.3 % (36.0-47.0); HEMOGLOBIN 13.7 g/dL (12.0-15.5); MEAN CORPUSCULAR HEMOGLOBIN 28.4 pg (27.0-33.4); MEAN CORPUSCULAR VOLUME 84 fl (80-97); PLATELET COUNT 177 10^3/uL (150-450); RED BLOOD COUNT 4.83 10^6/uL (3.72-5.28); RED CELL DISTRIBUTION WIDTH 14.5 % (11.5-14.0)
[2017-09-14 09:30] LABS: ANION GAP 10 (5-19); BLOOD UREA NITROGEN 19 mg/dL (7-20); CARBON DIOXIDE 32 mmol/L (22-30); CHLORIDE 95 mmol/L (98-107); GLUCOSE 142 mg/dL (75-110); POTASSIUM 3.4 mmol/L (3.6-5.0); SODIUM 137.4 mmol/L (137-145)
[2017-09-14] MEDS: CARVEDILOL 3.125 MG TABLET PO SCH ×2 (10:27→21:28)
[2017-09-14] MEDS: OXYBUTYNIN CHLORIDE 5 MG TABLET PO SCH (10:27)
[2017-09-14] MEDS: LISINOPRIL 5 MG TABLET PO SCH ×2 (10:27→21:26)
[2017-09-14] MEDS: PANTOPRAZOLE SODIUM 40 MG VIAL IV SCH (10:28)
[2017-09-14] MEDS: CLOPIDOGREL BISULFATE 75 MG TABLET PO SCH (10:28)
[2017-09-14] MEDS: ENOXAPARIN SODIUM INJ 150 MG/1 ML DISP.SYRIN SUBCUT SCH ×2 (10:28→21:27)
[2017-09-14] MEDS: DULOXETINE HCL 20 MG CAPSULE.DR PO SCH (10:28)
--- NOTE | 2017-09-14 10:48 | PDOC PROGRESS REPORT ---
Subjective Progress Note for:: 09/14/17 Subjective:: Patient relates that she was able to hold down food yesterday. She denies any chest pain or shortness of breath. Nurse reports the same that patient Review of systems All organ systems evaluated and negative except as in subjective All significant laboratories and diagnostics have been reviewed Reason For Visit: CHF EXACERBATION,CAD,HTN Physical Exam Vital Signs: Temp Pulse Resp BP Pulse Ox 98.5 F 87 16 128/81 H 100 09/14/17 00:00 09/14/17 02:00 09/14/17 00:00 09/14/17 00:00 09/14/17 00:40 Intake & Output 09/12/17 09/13/17 09/14/17 06:59 06:59 06:59 Intake Total 2300 2782 810 Output Total 280 800 700 Balance 2019 1981 110 Weight 178.9 kg 178.9 kg 178.9 kg General appearance: PRESENT: cooperative, morbidly obese Head exam: PRESENT: atraumatic, normocephalic Eye exam: PRESENT: conjunctiva pink, EOMI, PERRLA Ear exam: PRESENT: normal external ear exam Mouth exam: PRESENT: moist Neck exam: PRESENT: full ROM. ABSENT: JVD, lymphadenopathy, tenderness Respiratory exam: PRESENT: clear to auscultation astrid Cardiovascular exam: PRESENT: RRR. ABSENT: diastolic murmur, systolic murmur Vascular exam: PRESENT: normal capillary refill GI/Abdominal exam: PRESENT: normal bowel sounds, soft. ABSENT: tenderness Extremities exam: PRESENT: full ROM, +2 edema. ABSENT: calf tenderness Musculoskeletal exam: PRESENT: ambulatory Neurological exam: PRESENT: alert, awake, oriented to person, oriented to place , oriented to time, oriented to situation, CN II-XII grossly intact Psychiatric exam: PRESENT: other - Appears to be in a bad mood today Skin exam: PRESENT: intact, normal color Results Laboratory Results: 09/12/17 04:29 09/12/17 04:29 09/08/17 09/08/17 09/09/17 04:43 04:43 21:30 Creatine Kinase 50 42 CK-MB (CK-2) < 0.22 Troponin I < 0.012 09/09/17 09/10/17 09/10/17 21:30 03:36 03:36 Creatine Kinase 40 CK-MB (CK-2) < 0.22 < 0.22 Troponin I < 0.012 < 0.012 09/10/17 09/10/17 09:46 09:46 Creatine Kinase 35 CK-MB (CK-2) < 0.22 Troponin I < 0.012 Impressions: Chest X-Ray 09/07/17 00:00 IMPRESSION: Cardiomegaly. Chronic interstitial lung disease. Acute Abdomen Series 09/09/17 00:00 IMPRESSION: NO RADIOGRAPHIC EVIDENCE FOR ACUTE ABDOMINAL DISEASE. Abdomen/Pelvis CT 09/13/17 00:00 IMPRESSION: 1. No suggestion of abdominal mass. There is broad laxity of the supraumbilical ventral abdominal wall without uma hernia. KUB X-Ray 09/13/17 07:00 IMPRESSION: Mass in the right mid abdomen which on review of previous CT appears to be due to enlarged liver. Contrasted CT scan should be considered for further evaluation. Assessment & Plan - Diagnosis (1) Nausea & vomiting Qualifiers: Vomiting Intractability: unspecified Is this a current diagnosis for this admission?: Yes Plan: Improved will observe 24 hours and stable anticipate discharge in a.m. Patient informed. was at bedside (2) Abdominal mass Qualifiers: Abdominal location: epigastric Qualified Code(s): R19.06 - Epigastric swelling, mass or lump Is this a current diagnosis for this admission?: No Plan: CT of the abdomen and pelvis ruled out abdominal mass (3) Chronic respiratory failure Is this a current diagnosis for this admission?: Yes Plan: Continue with oxygen supplementation (4) Congestive heart failure Qualifiers: Heart failure type: right-sided Is this a current diagnosis for this admission?: Yes Plan: Explained in layman terms to patient her medical condition and encouraged her to lose weight. Will continue with oral diuretics. Patient appears to be baseline (5) Morbid obesity with BMI of 60.0-69.9, adult Is this a current diagnosis for this admission?: Yes Plan: Patient encouraged to lose weight. (6) COPD (chronic obstructive pulmonary disease) Qualifiers: Chronic bronchitis type: unspecified Is this a current diagnosis for this admission?: Yes Plan: Continue current management (7) Sleep apnea Qualifiers: Sleep apnea type: obstructive Qualified Code(s): G47.33 - Obstructive sleep apnea (adult) (pediatric) Is this a current diagnosis for this admission?: Yes Plan: Continue with CPAP (8) Ambulatory dysfunction Is this a current diagnosis for this admission?: Yes Plan: Due to her massive weight. Will benefit from physical therapy (9) Bilateral lower extremity edema Is this a current diagnosis for this admission?: Yes Plan: Due to fluid buildup and improved since admission (10) Hypercalcemia Is this a current diagnosis for this admission?: Yes Plan: Improved since admission and likely due to poor ambulation (11) Hypokalemia Is this a current diagnosis for this admission?: Yes Plan: Replace oral and trend - Time Time Spent with patient: 15-24 minutes Medications reviewed and adjusted accordingly: Yes Anticipated discharge: Home Within: within 24 hours - Inpatient Certification Based on my medical assessment, after consideration of the patient's comorbidities, presenting symptoms, or acuity I expect that the services needed warrant INPATIENT care.: Yes I certify that my determination is in accordance with my understanding of Medicare's requirements for reasonable and necessary INPATIENT services [42 CFR 412.3e].: Yes Medical Necessity: Need Close Monitoring Due to Risk of Patient Decompensation
[2017-09-14] MEDS ORDERED: POTASSIUM CHLORIDE 10 MEQ TABLET.SA PO ONE (11:30)
[2017-09-14] MEDS: ATORVASTATIN CALCIUM 40 MG TABLET PO SCH (21:26)
[2017-09-14] MEDS: MONTELUKAST SODIUM 10 MG TABLET PO SCH (21:27)
[2017-09-15] MEDS: HYDROMORPHONE HCL INJ/PF 2 MG/ML AMPULE IV PRN (01:40)
[2017-09-15] MEDS: PROMETHAZINE HCL INJ 25 MG/1 ML VIAL IV PRN ×3 (01:43→19:59)
[2017-09-15] MEDS ORDERED: LANSOPRAZOLE 30 MG TAB.RAP.DR PO SCH (08:00)
[2017-09-15] MEDS ORDERED: OXYCODONE HCL IR 5 MG TABLET PO PRN ×3 (08:21→20:24)
[2017-09-15] MEDS ORDERED: OXYCODONE HCL IR 5 MG TABLET ONE (08:55)
[2017-09-15] MEDS: LACTOBACILLUS ACIDOPHILUS 250 MG TAB PO SCH ×2 (09:48→17:32)
[2017-09-15] MEDS: OXYBUTYNIN CHLORIDE 5 MG TABLET PO SCH (09:49)
[2017-09-15] MEDS: LISINOPRIL 5 MG TABLET PO SCH ×2 (09:49→23:19)
[2017-09-15] MEDS: CARVEDILOL 3.125 MG TABLET PO SCH ×2 (09:49→23:18)
[2017-09-15] MEDS: DULOXETINE HCL 20 MG CAPSULE.DR PO SCH (09:49)
[2017-09-15] MEDS: CLOPIDOGREL BISULFATE 75 MG TABLET PO SCH (09:50)
[2017-09-15] MEDS: ENOXAPARIN SODIUM INJ 150 MG/1 ML DISP.SYRIN SUBCUT SCH ×2 (09:50→23:11)
[2017-09-15] MEDS: PSYLLIUM SEED-SF 5.85 GM PACKET PO SCH ×3 (09:51→17:32)
[2017-09-15] MEDS: RIFAXIMIN 200 MG TABLET PO SCH ×2 (15:31→23:13)
--- NOTE | 2017-09-15 15:46 | PDOC PROGRESS REPORT ---
Subjective Progress Note for:: 09/15/17 Subjective:: Patient complains of having severe diarrhea. She denies abdominal pain. She denies nausea or vomiting. She would like to continue with previous diet or she can pick and choose. Review of systems All organ systems evaluated and negative except as in subjective All significant laboratories and diagnostics have been reviewed Reason For Visit: CHF EXACERBATION,CAD,HTN Physical Exam Vital Signs: Temp Pulse Resp BP Pulse Ox 98.4 F 91 16 99/53 L 98 09/15/17 03:21 09/15/17 03:21 09/15/17 03:21 09/15/17 03:21 09/15/17 03:21 Intake & Output 09/14/17 09/15/17 09/16/17 06:59 06:59 06:59 Intake Total 810 1150 Output Total 700 1300 Balance 110 -150 Weight 178.9 kg 180 kg General appearance: PRESENT: cooperative, morbidly obese Head exam: PRESENT: atraumatic, normocephalic Eye exam: PRESENT: conjunctiva pink, EOMI, PERRLA Ear exam: PRESENT: normal external ear exam Mouth exam: PRESENT: moist Neck exam: PRESENT: full ROM, JVD. ABSENT: lymphadenopathy, tenderness Respiratory exam: PRESENT: clear to auscultation astrid Cardiovascular exam: PRESENT: RRR. ABSENT: diastolic murmur, systolic murmur Vascular exam: PRESENT: normal capillary refill GI/Abdominal exam: PRESENT: normal bowel sounds, soft. ABSENT: tenderness Extremities exam: PRESENT: full ROM Musculoskeletal exam: PRESENT: ambulatory Neurological exam: PRESENT: alert, awake, oriented to person, oriented to place , oriented to time, oriented to situation Psychiatric exam: PRESENT: appropriate affect, normal mood Skin exam: PRESENT: intact, normal color Results Laboratory Results: 09/14/17 08:37 09/14/17 08:37 09/14/17 09/14/17 08:37 08:37 WBC 7.0 RBC 4.83 Hgb 13.7 Hct 40.3 MCV 84 MCH 28.4 MCHC 34.0 RDW 14.5 H Plt Count 177 Sodium 137.4 Potassium 3.4 L Chloride 95 L Carbon Dioxide 32 H Anion Gap 10 BUN 19 Creatinine 0.75 Est GFR ( Amer) > 60 Est GFR (Non-Af Amer) > 60 Glucose 142 H Calcium 9.0 Magnesium 2.2 09/08/17 09/08/17 09/09/17 04:43 04:43 21:30 Creatine Kinase 50 42 CK-MB (CK-2) < 0.22 Troponin I < 0.012 09/09/17 09/10/17 09/10/17 21:30 03:36 03:36 Creatine Kinase 40 CK-MB (CK-2) < 0.22 < 0.22 Troponin I < 0.012 < 0.012 09/10/17 09/10/17 09:46 09:46 Creatine Kinase 35 CK-MB (CK-2) < 0.22 Troponin I < 0.012 Impressions: Chest X-Ray 09/07/17 00:00 IMPRESSION: Cardiomegaly. Chronic interstitial lung disease. Acute Abdomen Series 09/09/17 00:00 IMPRESSION: NO RADIOGRAPHIC EVIDENCE FOR ACUTE ABDOMINAL DISEASE. Abdomen/Pelvis CT 09/13/17 00:00 IMPRESSION: 1. No suggestion of abdominal mass. There is broad laxity of the supraumbilical ventral abdominal wall without uma hernia. KUB X-Ray 09/13/17 07:00 IMPRESSION: Mass in the right mid abdomen which on review of previous CT appears to be due to enlarged liver. Contrasted CT scan should be considered for further evaluation. Assessment & Plan - Diagnosis (1) Nausea & vomiting Qualifiers: Vomiting Intractability: unspecified Is this a current diagnosis for this admission?: Yes Plan: Improved (2) Abdominal mass Qualifiers: Abdominal location: epigastric Qualified Code(s): R19.06 - Epigastric swelling, mass or lump Is this a current diagnosis for this admission?: No Plan: CT of the abdomen and pelvis ruled out abdominal mass (3) Chronic respiratory failure Is this a current diagnosis for this admission?: Yes Plan: Continue with oxygen supplementation (4) Congestive heart failure Qualifiers: Heart failure type: right-sided Is this a current diagnosis for this admission?: Yes Plan: Improved when compared to the past previous days (5) Morbid obesity with BMI of 60.0-69.9, adult Is this a current diagnosis for this admission?: Yes Plan: Patient encouraged to lose weight. (6) COPD (chronic obstructive pulmonary disease) Qualifiers: Chronic bronchitis type: unspecified Is this a current diagnosis for this admission?: Yes Plan: Continue current management (7) Sleep apnea Qualifiers: Sleep apnea type: obstructive Qualified Code(s): G47.33 - Obstructive sleep apnea (adult) (pediatric) Is this a current diagnosis for this admission?: Yes Plan: Continue with CPAP (8) Ambulatory dysfunction Is this a current diagnosis for this admission?: Yes Plan: Due to her massive weight. Nurse aide reports that patient had been ambulatory (9) Bilateral lower extremity edema Is this a current diagnosis for this admission?: Yes Plan: Due to fluid buildup and improved since admission (10) Hypercalcemia Is this a current diagnosis for this admission?: Yes Plan: Improved since admission and likely due to poor ambulation (11) Hypokalemia Is this a current diagnosis for this admission?: Yes Plan: Replaced. Trend since now having diarrhea (12) Diarrhea Qualifiers: Diarrhea type: unspecified type Qualified Code(s): R19.7 - Diarrhea, unspecified Is this a current diagnosis for this admission?: Yes Plan: [place] had been tested prior and was negative. Will add lactobacillus, Metamucil and rifaximin - Time Time Spent with patient: 15-24 minutes Anticipated discharge: Home Within: within 48 hours - Inpatient Certification Based on my medical assessment, after consideration of the patient's comorbidities, presenting symptoms, or acuity I expect that the services needed warrant INPATIENT care.: Yes I certify that my determination is in accordance with my understanding of Medicare's requirements for reasonable and necessary INPATIENT services [42 CFR 412.3e].: Yes Medical Necessity: Need Close Monitoring Due to Risk of Patient Decompensation
[2017-09-15] MEDS ORDERED: OXYCODONE-ACETAMINOPHEN 5-325 MG TABLET PO PRN ×2 (16:55→20:23)
[2017-09-15] MEDS ORDERED: MORPHINE SULFATE IR 30 MG TABLET ONE (19:51)
[2017-09-15] MEDS ORDERED: MORPHINE SULFATE SR 30 MG TABLET PO ONE (20:30)
[2017-09-15] MEDS: MONTELUKAST SODIUM 10 MG TABLET PO SCH (23:11)
[2017-09-15] MEDS: ATORVASTATIN CALCIUM 40 MG TABLET PO SCH (23:12)
[2017-09-16] MEDS: RIFAXIMIN 200 MG TABLET PO SCH (05:20)
[2017-09-16] MEDS: PROMETHAZINE HCL INJ 25 MG/1 ML VIAL IV PRN ×3 (05:24→10:14)
[2017-09-16 06:49] LABS: ABSOLUTE BASOPHILS # (AUTO) 0.1 10^3/uL (0.0-0.2); ABSOLUTE EOSINOPHILS # (AUTO) 0.6 10^3/uL (0.0-0.6); ABSOLUTE LYMPHOCYTES (AUTO) 2.1 10^3/uL (0.5-4.7); ABSOLUTE MONOCYTES (AUTO) 0.7 10^3/uL (0.1-1.4); ABSOLUTE NEUT (AUTO) 5.7 10^3/uL (1.7-8.2); EOSINOPHILS % (AUTO) 6.2 % (0-6); HEMATOCRIT 38.5 % (36.0-47.0); LYMPHOCYTES % (AUTO) 22.8 % (13-45); MEAN CORPUSCULAR HEMOGLOBIN 28.7 pg (27.0-33.4); MEAN CORPUSCULAR HGB CONC 33.9 g/dL (32.0-36.0); MEAN CORPUSCULAR VOLUME 85 fl (80-97); PLATELET COUNT 165 10^3/uL (150-450); RED BLOOD COUNT 4.53 10^6/uL (3.72-5.28); RED CELL DISTRIBUTION WIDTH 15.1 % (11.5-14.0); TOTAL CELLS COUNTED % (AUTO) 100 %; WHITE BLOOD COUNT 9.2 10^3/uL (4.0-10.5)
[2017-09-16 07:08] LABS: ANION GAP 13 (5-19); BLOOD UREA NITROGEN 18 mg/dL (7-20); CALCIUM 8.5 mg/dL (8.4-10.2); CARBON DIOXIDE 30 mmol/L (22-30); CHLORIDE 95 mmol/L (98-107); GLUCOSE 168 mg/dL (75-110); POTASSIUM 3.6 mmol/L (3.6-5.0)
[2017-09-16] MEDS ORDERED: MORPHINE SULFATE SR 30 MG TABLET PO SCH (10:00)
[2017-09-16 10:02] VITALS: BP 115/59
--- NOTE | 2017-09-16 16:33 | PDOC DISCHARGE SUMMARY ---
General - Admit/Disc Date/PCP Admission Date/Primary Care Provider: 09/07/17 02:20 Discharge Date: 09/16/17 - Discharge Diagnosis (1) Congestive heart failure Is this a current diagnosis for this admission?: Yes (2) Morbid obesity with BMI of 60.0-69.9, adult Is this a current diagnosis for this admission?: Yes (3) Sleep apnea Is this a current diagnosis for this admission?: Yes (4) Chronic respiratory failure Is this a current diagnosis for this admission?: Yes (5) Nausea & vomiting Is this a current diagnosis for this admission?: Yes (6) COPD (chronic obstructive pulmonary disease) Is this a current diagnosis for this admission?: Yes (7) Ambulatory dysfunction Is this a current diagnosis for this admission?: Yes (8) Bilateral lower extremity edema Is this a current diagnosis for this admission?: Yes (9) Hypercalcemia Is this a current diagnosis for this admission?: Yes (10) Hypokalemia Is this a current diagnosis for this admission?: Yes (11) Diarrhea Is this a current diagnosis for this admission?: Yes - Additional Information Resuscitation Status: Full Code Discharge Diet: Cardiac, Diabetic Discharge Activity: Activity As Tolerated, Balance Activity w/Rest, Keep Legs Elevated, Weigh Daily Prescriptions: Rifaximin [Xifaxan 200 mg Tablet] 200 mg PO Q8 #30 tablet Home Medications: Atorvastatin Calcium [Lipitor 40 mg Tablet] 40 mg PO QHS 09/07/17 Budesonide [Pulmicort Neb 0.5 mg/2 ml Ampul] 0.5 mg NEB BIDP PRN 09/07/17 Bumetanide [Bumex 2 mg Tablet] 2 mg PO BID 09/07/17 Carvedilol [Coreg 3.125 mg Tablet] 3.125 mg PO Q12 09/07/17 Clopidogrel Bisulfate [Plavix 75 mg Tablet] 75 mg PO DAILY 09/07/17 Duloxetine HCl [Cymbalta 20 mg Capsule.dr] 20 mg PO DAILY 09/07/17 Enoxaparin Sodium [Lovenox Inj 150 mg/1 ml Disp.syrin] 150 mg SUBCUT Q12 Epinephrine [Epipen] 0.3 mg INJ ASDIR PRN 09/07/17 Ferrous Sulfate [Feosol 325 mg Tablet] 325 mg PO DAILY 09/07/17 Ipratropium/Albuterol Sulfate [Duoneb 3 ml Ampul] 3 ml NEB RTBIDP PRN 09/07/17 Lisinopril [Prinivil 5 mg Tablet] 5 mg PO Q12 09/07/17 Montelukast Sodium [Singulair 10 mg Tablet] 10 mg PO QHS 09/07/17 Morphine Sulfate [Ms-Contin Sr 30 mg Tablet] 60 mg PO BID 09/07/17 Ondansetron [Zofran Odt 4 mg Tablet] 4 mg PO Q4HP PRN 09/07/17 Oxybutynin Chloride [Ditropan 5 mg Tablet] 5 mg PO DAILY 09/07/17 Oxycodone HCl/Acetaminophen [Percocet 10-325 mg Tablet] 1 tab PO BIDP PRN Potassium Chloride [Klor-Con 10 Meq Tablet.sa] 10 meq PO DAILY 09/07/17 Prochlorperazine Maleate [Compazine 10 mg Tablet] 25 mg PO BIDP PRN 09/07/17 Ranitidine HCl [Zantac 150 mg Tablet] 150 mg PO DAILY 09/07/17 Rifaximin [Xifaxan 200 mg Tablet] 200 mg PO Q8 #30 tablet 09/16/17 History of Present Illness History of Present Illness: DOMONIQUE DOMINGUEZ is a 47 year old female with a past medical history of super morbid obesity, DVT and pulmonary emboli on Lovenox and recurrent venous stasis. Patient presented with approximately 5 days of worsening lower extremity erythema and pain. She denied chest pain, shortness of breath, nausea vomiting but admited subjective fever and swelling with leg pain. In the emergency room she presented with +3 lower extremity edema with erythema with an otherwise unremarkable workup. She was referred to the hospitalist for observation. Patient reported to multiple previous episodes and noncompliance lifestyle remaining in a recliner chair without use of compression stockings Hospital Course Hospital Course: Patient was admitted to telemetry unit. Initially for observation status since it was deemed that patient was having primarily right-sided failure. Patient was diuresed with further improvement of symptoms. By the time of discharge she had been transitioned back to oral diuretics. During this hospitalization she developed nausea and vomiting which required for patient to be placed n.p.o. KUB was obtained which was abnormal due the suggestion of an abdominal mass. CT of the abdomen and pelvis was obtained which was normal. Patient also developed diarrhea which responded to probiotic, fiber and rifaximin. At the time of discharge she was discharged on rifaximin as she had a recent bout of C. difficile although on this hospitalization was negative. Patient has been strongly encouraged as to lifestyle modification including losing weight. 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 All of them in conjunction will make her prone to bouts of right-sided failure in addition to dietary indiscretion.Since patient had improved prompted to discharge under stable condition Physical Exam Vital Signs: Temp Pulse Resp BP Pulse Ox 98.4 F 82 17 131/69 H 95 09/15/17 23:15 09/16/17 02:00 09/15/17 23:15 09/15/17 23:15 09/15/17 23:15 Intake & Output 09/15/17 09/16/17 09/17/17 06:59 06:59 06:59 Intake Total 1150 1910 Output Total 1300 1400 Balance -150 510 Weight 180 kg General appearance: PRESENT: cooperative, morbidly obese Head exam: PRESENT: atraumatic, normocephalic Eye exam: PRESENT: conjunctiva pink, EOMI, PERRLA Ear exam: PRESENT: normal external ear exam Mouth exam: PRESENT: moist Neck exam: PRESENT: full ROM. ABSENT: JVD, lymphadenopathy, tenderness Respiratory exam: PRESENT: clear to auscultation astrid Cardiovascular exam: PRESENT: RRR. ABSENT: diastolic murmur, systolic murmur Vascular exam: PRESENT: normal capillary refill GI/Abdominal exam: PRESENT: normal bowel sounds, soft. ABSENT: tenderness Extremities exam: PRESENT: full ROM, +1 edema Musculoskeletal exam: PRESENT: ambulatory Neurological exam: PRESENT: alert, awake, oriented to person, oriented to place , oriented to time, oriented to situation, CN II-XII grossly intact Psychiatric exam: PRESENT: appropriate affect, normal mood Skin exam: PRESENT: intact, normal color Results Laboratory Results: 09/16/17 06:06 09/16/17 06:06 09/16/17 09/16/17 06:06 06:06 WBC 9.2 RBC 4.53 Hgb 13.0 Hct 38.5 MCV 85 MCH 28.7 MCHC 33.9 RDW 15.1 H Plt Count 165 Seg Neutrophils % 62.0 Lymphocytes % 22.8 Monocytes % 8.0 Eosinophils % 6.2 H Basophils % 1.0 Absolute Neutrophils 5.7 Absolute Lymphocytes 2.1 Absolute Monocytes 0.7 Absolute Eosinophils 0.6 Absolute Basophils 0.1 Sodium 138.0 Potassium 3.6 Chloride 95 L Carbon Dioxide 30 Anion Gap 13 BUN 18 Creatinine 0.77 Est GFR ( Amer) > 60 Est GFR (Non-Af Amer) > 60 Glucose 168 H Calcium 8.5 Magnesium 1.9 09/08/17 09/08/17 09/09/17 04:43 04:43 21:30 Creatine Kinase 50 42 CK-MB (CK-2) < 0.22 Troponin I < 0.012 09/09/17 09/10/17 09/10/17 21:30 03:36 03:36 Creatine Kinase 40 CK-MB (CK-2) < 0.22 < 0.22 Troponin I < 0.012 < 0.012 09/10/17 09/10/17 09:46 09:46 Creatine Kinase 35 CK-MB (CK-2) < 0.22 Troponin I < 0.012 Impressions: Chest X-Ray 09/07/17 00:00 IMPRESSION: Cardiomegaly. Chronic interstitial lung disease. Acute Abdomen Series 09/09/17 00:00 IMPRESSION: NO RADIOGRAPHIC EVIDENCE FOR ACUTE ABDOMINAL DISEASE. Abdomen/Pelvis CT 09/13/17 00:00 IMPRESSION: 1. No suggestion of abdominal mass. There is broad laxity of the supraumbilical ventral abdominal wall without uma hernia. KUB X-Ray 09/13/17 07:00 IMPRESSION: Mass in the right mid abdomen which on review of previous CT appears to be due to enlarged liver. Contrasted CT scan should be considered for further evaluation. Qualifiers - * P[place]INT BEING DISCHARGED WITH ANY OF THE FOLLOWING DIAGNOSIS?: No Plan Discharge Plan: Discharge home Time Spent: Less than 30 Minutes
--- NOTE | 2017-09-17 10:15 | PDOC PROGRESS REPORT ---
Subjective Progress Note for:: 09/12/17 Subjective:: Patient 47-year-old morbidly obese with chronic hypoxic respiratory failure on 3 L oxygen. Patient also has coronary artery disease with DVT and PE. Patient is on Lovenox. Patient states that the swelling on her legs is significantly improved however patient complains of nausea vomiting. She has abdominal soreness. She was having diarrhea and still having vomiting. She is asking for a full liquid diet. Reason For Visit: CHF EXACERBATION,CAD,HTN Physical Exam Vital Signs: Temp Pulse Resp BP Pulse Ox 98.6 F 79 16 108/74 100 09/12/17 19:28 09/12/17 19:28 09/12/17 19:28 09/12/17 19:28 09/12/17 19:28 Intake & Output 09/11/17 09/12/17 09/13/17 06:59 06:59 06:59 Intake Total 140 2300 1642 Output Total 280 400 Balance 140 2020 1242 Weight 176.8 kg 178.9 kg General appearance: PRESENT: no acute distress, obese Head exam: PRESENT: normocephalic Eye exam: PRESENT: EOMI. ABSENT: scleral icterus Ear exam: PRESENT: normal external ear exam Mouth exam: PRESENT: moist Neck exam: ABSENT: carotid bruit, JVD, lymphadenopathy, thyromegaly Respiratory exam: PRESENT: clear to auscultation astrid. ABSENT: rales, rhonchi, wheezes Cardiovascular exam: PRESENT: RRR. ABSENT: diastolic murmur, rubs, systolic murmur GI/Abdominal exam: PRESENT: hyperactive bowel sounds, soft. ABSENT: distended, guarding, mass, organolmegaly, rebound, tenderness Rectal exam: PRESENT: deferred Extremities exam: PRESENT: full ROM. ABSENT: calf tenderness, clubbing, pedal edema Neurological exam: PRESENT: alert, awake, oriented to person, oriented to place , oriented to time, oriented to situation, CN II-XII grossly intact. ABSENT: motor sensory deficit Psychiatric exam: PRESENT: appropriate affect, normal mood. ABSENT: homicidal ideation, suicidal ideation Skin exam: PRESENT: dry, intact, warm. ABSENT: cyanosis, rash Results Laboratory Results: 09/12/17 04:29 09/12/17 04:29 09/12/17 09/12/17 09/12/17 04:29 04:29 11:04 WBC 10.2 RBC 5.22 Hgb 14.9 Hct 44.0 MCV 84 MCH 28.7 MCHC 33.9 RDW 14.9 H Plt Count 202 Sodium 136.9 L Potassium 3.6 Chloride 88 L Carbon Dioxide 36 H Anion Gap 13 BUN 38 H Creatinine 0.96 Est GFR ( Amer) > 60 Est GFR (Non-Af Amer) > 60 Glucose 162 H Calcium 9.5 Magnesium 2.4 H Urine Color Urine Appearance Urine pH Ur Specific [place] Urine Protein Urine Glucose (UA) Urine Ketones Urine Blood Urine Nitrite Ur Leukocyte Esterase Urine WBC (Auto) Urine RBC (Auto) Stool Occult Blood NEGATIVE 09/12/17 11:04 WBC RBC Hgb Hct MCV MCH MCHC RDW Plt Count Sodium Potassium Chloride Carbon Dioxide Anion Gap BUN Creatinine Est GFR ( Amer) Est GFR (Non-Af Amer) Glucose Calcium Magnesium Urine Color YELLOW Urine Appearance SLIGHTLY-CLOUDY Urine pH 6.0 Ur Specific [place] 1.024 Urine Protein 30 H Urine Glucose (UA) NEGATIVE Urine Ketones NEGATIVE Urine Blood LARGE H Urine Nitrite NEGATIVE Ur Leukocyte Esterase NEGATIVE Urine WBC (Auto) 4 Urine RBC (Auto) 99 Stool Occult Blood 09/08/17 09/08/17 09/09/17 04:43 04:43 21:30 Creatine Kinase 50 42 CK-MB (CK-2) < 0.22 Troponin I < 0.012 09/09/17 09/10/17 09/10/17 21:30 03:36 03:36 Creatine Kinase 40 CK-MB (CK-2) < 0.22 < 0.22 Troponin I < 0.012 < 0.012 09/10/17 09/10/17 09:46 09:46 Creatine Kinase 35 CK-MB (CK-2) < 0.22 Troponin I < 0.012 Impressions: Chest X-Ray 09/07/17 00:00 IMPRESSION: Cardiomegaly. Chronic interstitial lung disease. Acute Abdomen Series 09/09/17 00:00 IMPRESSION: NO RADIOGRAPHIC EVIDENCE FOR ACUTE ABDOMINAL DISEASE. Assessment & Plan - Diagnosis (1) Bilateral lower extremity edema Is this a current diagnosis for this admission?: Yes Plan: Most likely due to right-sided heart failure. Patient swelling has improved with diuretics. Will stop IV Lasix. Will put bumex on hold for now as patient is becoming dehydrated. (2) Chronic respiratory failure Is this a current diagnosis for this admission?: Yes Plan: With chronic hypoxic respiratory failure. Patient on supplemental oxygen at home. Patient still on her baseline 3 L. (3) Congestive heart failure Qualifiers: Heart failure type: right-sided Is this a current diagnosis for this admission?: Yes Plan: Patient with right-sided heart failure. Patient heart failure improved with diuretics. Patient may be too dry. Will hold bumex. Continue ACEI and beta esteban. Will increase fluid restriction. (4) Coronary artery disease Qualifiers: Coronary Disease-Associated Artery/Lesion type: [place] artery Associated angina: without angina Is this a current diagnosis for this admission?: Yes Plan: Will continue home medications which consist of Plavix, atorvastatin, Coreg, lisinopril. (5) Hyperlipidemia Is this a current diagnosis for this admission?: Yes Plan: Continue statin (6) Hypertension Qualifiers: Hypertension type: essential hypertension Qualified Code(s): I10 - Essential (primary) hypertension Is this a current diagnosis for this admission?: Yes Plan: Continue with Coreg and lisinopril. Will continue to monitor. (7) Nausea and vomiting Qualifiers: Vomiting type: bilious vomiting Qualified Code(s): R11.14 - Bilious vomiting Is this a current diagnosis for this admission?: Yes Plan: Uncertain as to why patient is nauseated and vomiting. Will order KUB. Patient denies abdominal pain. She may need further imaging if this continues. (8) Morbid obesity with BMI of 60.0-69.9, adult Is this a current diagnosis for this admission?: Yes Plan: Counseled patient on diet and physical activity as tolerated. Unfortunately her weight may be contributing to her respiratory and cardiac symptoms. (9) History of uterine cancer Is this a current diagnosis for this admission?: Yes Plan: Stable. (10) Hyponatremia Is this a current diagnosis for this admission?: Yes Plan: Patient will mild hyponatremia likely due to the use of diuretics. Will discontinue diuretics and give patient gentle hydration. (11) Hypercalcemia Is this a current diagnosis for this admission?: Yes Plan: Resolved. (12) Hypochloremia Is this a current diagnosis for this admission?: Yes Plan: Improving. Most likely due to overdiuresis. Will decrease diuretics and give patient gentle hydration. (13) Ambulatory dysfunction Is this a current diagnosis for this admission?: Yes Plan: Possibly due to patient size and pedal edema. PT consulted. - Time Time Spent with patient: 15-24 minutes Medications reviewed and adjusted accordingly: Yes Anticipated discharge: Home - Inpatient Certification Medical Necessity: Need For IV Fluids - Patient still with vomiting. Will have to make patient can tolerate adequate po intake.
== END 2017-09-16 11:17 | disposition home or self-care (01) | DRG 292 ==
LOC: ER 23:16 → INTOOBSV 09-07 02:20 → EH 09-07 02:20 → OBSVTOIN 09-07 02:20 → 4N 09-07 06:03
PROVIDERS: ADMIT Internal Medicine; ATTEND Internal Medicine
PROC: 5A09357 Assistance with Respiratory Ventilation, Less than 24 Consecutive Hours, Continuous Positive Airway Pressure (ICD-10-PCS; principal; 2017-09-07)
DX: I11.0 Hypertensive heart disease with heart failure (principal); Z68.44 Body mass index [BMI] 60.0-69.9, adult; J96.10 Chronic respiratory failure, unspecified whether with hypoxia or hypercapnia; I50.811 Acute right heart failure; I87.2 Venous insufficiency (chronic) (peripheral); E66.01 Morbid (severe) obesity due to excess calories; I25.10 Atherosclerotic heart disease of native coronary artery without angina pectoris; E87.8 Other disorders of electrolyte and fluid balance, not elsewhere classified; E78.5 Hyperlipidemia, unspecified; E83.52 Hypercalcemia; E87.6 Hypokalemia; R19.7 Diarrhea, unspecified; R11.14 Bilious vomiting; G47.30 Sleep apnea, unspecified; J44.9 Chronic obstructive pulmonary disease, unspecified; F32.9 Major depressive disorder, single episode, unspecified; M19.90 Unspecified osteoarthritis, unspecified site; Z71.3 Dietary counseling and surveillance; Z86.718 Personal history of other venous thrombosis and embolism; Z86.711 Personal history of pulmonary embolism; Z99.81 Dependence on supplemental oxygen; Z85.42 Personal history of malignant neoplasm of other parts of uterus; Z87.891 Personal history of nicotine dependence; Z91.19 Patient's noncompliance with other medical treatment and regimen; Z79.899 Other long term (current) drug therapy; Z83.3 Family history of diabetes mellitus; Z88.0 Allergy status to penicillin; Z79.82 Long term (current) use of aspirin; Z88.6 Allergy status to analgesic agent; Z88.1 Allergy status to other antibiotic agents; Z91.09 Other allergy status, other than to drugs and biological substances; Z91.018 Allergy to other foods
CPT/HCPCS: 36415; 71045; 74018; 74022; 74177; 80048; 81001; 82272; 82550; 82553; 83735; 83880; 84443; 84484; 85025; 85027; 87493; 90686; 93306; 96374; 99285; A9270 GY; G0378; J1170; J1940; J2405; J2550; J2765; J3010; J3490; J7030; S0119; S0164; S0183

== ENCOUNTER 2018-02-08 01:16 | Inpatient (IN) | payer MEDICAID ==
--- NOTE | 2018-02-08 02:34 | ER Document Report ---
ED General - General Chief Complaint: Shortness Of Breath Stated Complaint: SHORTNESS OF BREATH Time Seen by Provider: 02/08/18 02:21 Notes: Patient is a 47-year-old female with a history of congestive heart failure, morbid obesity, DVT/PE, that comes emergency department for chief complaint of worsening shortness of breath and lower extremity swelling over the past 3 days. She states the swelling is gotten to the point that she cannot walk. She has been taking her Lasix and Bumex as prescribed, normally takes 80 mg of Lasix twice a day and 2 mg of Bumex twice a day on alternate days. She follows with [facility]ology. She denies cough, fever, she states that she got nauseated and threw up once now but denies any abdominal pain. She denies specific chest pain but states she feels tightness. She wears 3 L nc at all times. TRAVEL OUTSIDE OF THE [place] IN LAST 30 DAYS: No - Related Data Allergies/Adverse Reactions: daptomycin Allergy (Severe, Verified 08/17/16 12:19) Anaphylaxis lemon oil [Lemon Oil] Allergy (Severe, Verified 08/17/16 12:19) Anaphylaxis vancomycin [Vancomycin] Allergy (Mild, Verified 08/17/16 12:19) tongue, facial swelling aspirin [Aspirin] Allergy (Verified 08/17/16 12:19) ibuprofen [Ibuprofen] Allergy (Verified 08/17/16 12:19) Penicillins Allergy (Verified 08/17/16 12:19) warfarin sodium [From Coumadin] Adverse Reaction (Unknown, Verified 08/17/16 12: 19) bleeding rivaroxaban [From Xarelto] Adverse Reaction (Verified 08/17/16 12:19) Bleeding Past Medical History - General Information source: Patient, Relative - Social History Smoking Status: Never Smoker Frequency of alcohol use: None Drug Abuse: None Lives with: Family Family History: DM - Past Medical History Cardiac Medical History: Reports: Hx Coronary Artery Disease, Hx DVT, Hx Hypercholesterolemia, Hx Hypertension, Hx Pulmonary Embolism Denies: Hx Heart Attack Pulmonary Medical History: Reports: Hx Pneumonia Denies: Hx Asthma, Hx Bronchitis, Hx COPD Neurological Medical History: Reports: Hx Cerebrovascular Accident - LEFT SIDED WEAKNESS. Denies: Hx Seizures Renal/ Medical History: Reports: Hx Kidney Stones, Hx Renal Insufficiency. Denies: Hx Peritoneal Dialysis Malignancy Medical History: Reports: Hx Ovarian Cancer - Bladder metastases GI Medical History: Reports: Hx Gastroesophageal Reflux Disease, Hx Ulcer. Denies: Hx Pancreatitis Musculoskeletal Medical History: Reports Hx Arthritis Skin Medical History: Reports Hx Cellulitis Psychiatric Medical History: Reports: Hx Anxiety, Hx Depression Past Surgical History: Reports: Hx Cardiac Surgery - angioplasty, Hx Section, Hx Cholecystectomy, Hx Hysterectomy, Hx Orthopedic Surgery, Hx Urinary Tract Surgery - Bladder surgery for a metastatic cancer - Immunizations Hx Diphtheria, Pertussis, Tetanus Vaccination: No Hx Pneumococcal Vaccination: 04/22/13 Review of Systems - Review of Systems Constitutional: No symptoms reported EENT: No symptoms reported Cardiovascular: See HPI Respiratory: See HPI Genitourinary: No symptoms reported Female Genitourinary: No symptoms reported Musculoskeletal: See HPI Skin: No symptoms reported Hematologic/Lymphatic: No symptoms reported Neurological/Psychological: No symptoms reported Physical Exam - Vital signs Vitals: Temp Pulse Resp BP Pulse Ox 98.9 F 90 24 H 151/90 H 98 02/08/18 01:25 02/08/18 01:25 02/08/18 01:25 02/08/18 01:25 02/08/18 01:25 - Notes Notes: GENERAL: Alert, interacts well, patient is very morbidly obese. No signs of distress. HEAD: Normocephalic, atraumatic. EYES: Pupils equal, round, and reactive to light. Extraocular movements intact. ENT: Oral mucosa moist, tongue midline. NECK: Full range of motion. Supple. Trachea midline. LUNGS: Clear to auscultation bilaterally, no wheezes, rales, or rhonchi. No respiratory distress. HEART: Regular rate and rhythm. No murmur ABDOMEN: Soft, non-tender. Non-distended. Bowel sounds present in all 4 quadrants. EXTREMITIES: Bilateral upper extremity swelling with minimal pitting edema. Rings taken off. 3+ pitting edema bilateral lower extremities with some chronic venous insufficiency skin changes. Pulses intact. Sensation intact. Unremarkable lower extremity exam otherwise. BACK: no cervical, thoracic, lumbar midline tenderness. No saddle anesthesia, normal distal neurovascular exam. NEUROLOGICAL: Alert and oriented x3. Normal speech. [cranial nerves II through XII grossly intact]. PSYCH: Normal affect, normal mood. SKIN: Warm, dry, normal turgor. No rashes or lesions noted. Course - Re-evaluation Re-evalutation: On physical exam patient has anasarca, swelling of the upper extremity to the point that she had to take off her rings, and 3+ lower extremity pitting edema. Lungs are actually clear, she is not tachypneic or hypoxic. Otherwise well- appearing. CBC, chemistry unremarkable, BNP not elevated, troponin unremarkable, chest x- ray shows cardiomegaly without vascular congestion. Patient reporting that she has not urinated normally, only urinated twice in the past day and a half despite taking Lasix and Bumex, however after being given IV Lasix 80 mg of she still has great difficulty getting around and obvious pain with walking. Review of records show similar presentation at admission back in August. Patient states she is very similar to this although not quite as bad, she states she came in before she got as bad as last time. Because of patient's inability to walk and anasarca in addition to maximum oral therapy will discuss with hospitalist. Patient states agreement with plan. 02/08/18 04:[address] Laird, he is backed up with multiple admissions and tasks at this time, will refer to daytime hospitalists. 02/08/18 07:[address] Villar, hospitalist, patient will be admitted to the hospital. - Vital Signs Vital signs: Temp Pulse Resp BP Pulse Ox 98.9 F 90 12 138/80 H 100 02/08/18 01:25 02/08/18 01:25 02/08/18 07:01 02/08/18 07:01 02/08/18 07:01 - Laboratory Result Diagrams: 02/08/18 03:16 02/08/18 03:16 Laboratory results interpreted by me: 02/08/18 02/08/18 03:16 03:16 Hgb 11.8 L Hct 35.6 L RDW 15.6 H Carbon Dioxide 31 H Glucose 116 H Discharge - Discharge Clinical Impression: Swelling of both upper extremities, Swelling of both lower extremities, Chest tightness Obesity Qualifiers: Obesity type: unspecified obesity type Obesity classification: adult class 3 ( BMI >= 40) Serious obesity comorbidity presence: with serious comorbidity Body mass index: BMI 60.0-69.9 Qualified Code(s): E66.9 - Obesity, unspecified Condition: Stable Disposition: ADMITTED INPATIENT Admitting Provider: Hospitalist Unit Admitted: Telemetry
--- NOTE | 2018-02-08 02:39 | RADIOLOGY REPORT (SQ) ---
Chest 2 view on 02/08/2018 at 2:22 AM CLINICAL INDICATION: Cough, shortness of breath COMPARISON: 09/07/2017 FINDINGS: Cardiomegaly is noted. There is minimal linear atelectasis or scarring in the right midlung. The lungs are otherwise clear. Hilar and mediastinal contours are within normal limits. Pulmonary vascularity is within normal limits. IMPRESSION: No acute disease.
[2018-02-08 03:30] LABS: ABSOLUTE BASOPHILS # (AUTO) 0.1 10^3/uL (0.0-0.2); ABSOLUTE EOSINOPHILS # (AUTO) 0.4 10^3/uL (0.0-0.6); ABSOLUTE LYMPHOCYTES (AUTO) 1.4 10^3/uL (0.5-4.7); ABSOLUTE MONOCYTES (AUTO) 0.5 10^3/uL (0.1-1.4); ABSOLUTE NEUT (AUTO) 4.2 10^3/uL (1.7-8.2); BASOPHILS % (AUTO) 1.3 % (0-2); EOSINOPHILS % (AUTO) 5.9 % (0-6); HEMATOCRIT 35.6 % (36.0-47.0); HEMOGLOBIN 11.8 g/dL (12.0-15.5); LYMPHOCYTES % (AUTO) 21.4 % (13-45); MEAN CORPUSCULAR HEMOGLOBIN 28.3 pg (27.0-33.4); MEAN CORPUSCULAR HGB CONC 33.2 g/dL (32.0-36.0); MEAN CORPUSCULAR VOLUME 85 fl (80-97); MONOCYTES % (AUTO) 7.8 % (3-13); PLATELET COUNT 172 10^3/uL (150-450); RED BLOOD COUNT 4.18 10^6/uL (3.72-5.28); RED CELL DISTRIBUTION WIDTH 15.6 % (11.5-14.0); SEGMENTED NEUTROPHILS % (AUTO) 63.6 % (42-78); TOTAL CELLS COUNTED % (AUTO) 100 %; WHITE BLOOD COUNT 6.7 10^3/uL (4.0-10.5)
[2018-02-08] MEDS ORDERED: FUROSEMIDE INJ/PF 40 MG/4 ML SDV IV ONE (03:39)
[2018-02-08 03:46] LABS: ALANINE AMINOTRANSFERASE 28 U/L (9-52); ALBUMIN 3.9 g/dL (3.5-5.0); ALKALINE PHOSPHATASE 93 U/L (38-126); ANION GAP 10 (5-19); ASPARTATE AMINO TRANSFERASE 24 U/L (14-36); BILIRUBIN,DIRECT 0.3 mg/dL (0.0-0.4); BILIRUBIN,TOTAL 0.6 mg/dL (0.2-1.3); BLOOD UREA NITROGEN 12 mg/dL (7-20); CALCIUM 8.5 mg/dL (8.4-10.2); CARBON DIOXIDE 31 mmol/L (22-30); CHLORIDE 101 mmol/L (98-107); CREATINE KINASE 65 U/L (30-135); GLUCOSE 116 mg/dL (75-110); POTASSIUM 4.4 mmol/L (3.6-5.0); TOTAL PROTEIN 6.8 g/dL (6.3-8.2)
[2018-02-08] MEDS ORDERED: MORPHINE SULFATE 10 MG/ML INJ IV ONE (03:46)
[2018-02-08 03:58] LABS: CREATINE KINASE MB 0.58 ng/mL (<4.55); NT PRO BNP 116 pg/mL (<125)
[2018-02-08 04:04] LABS: TROPONIN I < 0.012 ng/mL
--- NOTE | 2018-02-08 08:33 | PDOC H&P ---
History of Present Illness Admission Date/PCP: 02/08/18 08:09 History of Present Illness: DOMONIQUE DOMINGUEZ is a 47 year old female patient with multiple comorbidities including super morbid obesity, diastolic CHF, history of PE and DVT, hypertension, hyperlipidemia, history of ovarian cancer status post hysterectomy and history of anxiety and depression presents with chief complaint of bilateral leg swelling and pain of 3 days duration. Of note the patient has underlying venous stasis and has history of recurrent cellulitis as well. Patient reports the swelling is gotten to the point that she cannot walk. She has been taking her Lasix and Bumex as prescribed, normally takes 80 mg of Lasix twice a day and 2 mg of Bumex twice a day on alternate days. Patient denies any fever, cough, chest pain, palpitation, diaphoresis, nausea, vomiting, abdominal pain or diarrhea. No orthopnea or paroxysmal nocturnal dyspnea. No headache or dizziness or blurring of vision. Her blood works are unremarkable. Past Medical History Cardiac Medical History: Reports: Coronary Artery Disease, DVT, Hyperlipidema, Hypertension, Pulmonary Embolism Denies: Myocardial Infarction Pulmonary Medical History: Reports: Pneumonia Denies: Asthma, Bronchitis, Chronic Obstructive Pulmonary Disease (COPD) Neurological Medical History: Denies: Seizures Malignancy Medical History: Reports: Ovarian Cancer - Bladder metastases GI Medical History: Reports: Gastroesophageal Reflux Disease Musculoskeltal Medical History: Reports: Arthritis Psychiatric Medical History: Reports: Depression Hematology: Reports: Anemia Denies: Hemophilia, Sickle Cell Disease Past Surgical History Past Surgical History: Reports: Section, Cholecystectomy, Hysterectomy , Orthopedic Surgery Denies: Amputation Social History Lives with: Family Smoking Status: Never Smoker Frequency of Alcohol Use: Occasional Hx Recreational Drug Use: No Drugs: None Hx Prescription Drug Abuse: No - Advance Directive Resuscitation Status: Full Code Family History Family History: DM Parental Family History Reviewed: Yes Children Family History Reviewed: Yes Sibling(s) Family History Reviewed.: Yes Medication/Allergy Home Medications: Atorvastatin Calcium [Lipitor 40 mg Tablet] 40 mg PO QHS 09/07/17 Budesonide [Pulmicort Neb 0.5 mg/2 ml Ampul] 0.5 mg NEB BIDP PRN 09/07/17 Bumetanide [Bumex 2 mg Tablet] 2 mg PO BID 09/07/17 Carvedilol [Coreg 3.125 mg Tablet] 3.125 mg PO Q12 09/07/17 Clopidogrel Bisulfate [Plavix 75 mg Tablet] 75 mg PO DAILY 09/07/17 Duloxetine HCl [Cymbalta 20 mg Capsule.dr] 20 mg PO DAILY 09/07/17 Enoxaparin Sodium [Lovenox Inj 150 mg/1 ml Disp.syrin] 150 mg SUBCUT Q12 Epinephrine [Epipen] 0.3 mg INJ ASDIR PRN 09/07/17 Ferrous Sulfate [Feosol 325 mg Tablet] 325 mg PO DAILY 09/07/17 Ipratropium/Albuterol Sulfate [Duoneb 3 ml Ampul] 3 ml NEB RTBIDP PRN 09/07/17 Lisinopril [Prinivil 5 mg Tablet] 5 mg PO Q12 09/07/17 Montelukast Sodium [Singulair 10 mg Tablet] 10 mg PO QHS 09/07/17 Morphine Sulfate [Ms-Contin Sr 30 mg Tablet] 60 mg PO BID 09/07/17 Ondansetron [Zofran Odt 4 mg Tablet] 4 mg PO Q4HP PRN 09/07/17 Oxybutynin Chloride [Ditropan 5 mg Tablet] 5 mg PO DAILY 09/07/17 Oxycodone HCl/Acetaminophen [Percocet 10-325 mg Tablet] 1 tab PO BIDP PRN Potassium Chloride [Klor-Con 10 Meq Capsule ER] 10 meq PO DAILY 09/07/17 Prochlorperazine Maleate [Compazine 10 mg Tablet] 25 mg PO BIDP PRN 09/07/17 Ranitidine HCl [Zantac 150 mg Tablet] 150 mg PO DAILY 09/07/17 Rifaximin [Xifaxan 200 mg Tablet] 200 mg PO Q8 #30 tablet 09/16/17 Allergies/Adverse Reactions: daptomycin Allergy (Severe, Verified 08/17/16 12:19) Anaphylaxis lemon oil [Lemon Oil] Allergy (Severe, Verified 08/17/16 12:19) Anaphylaxis vancomycin [Vancomycin] Allergy (Mild, Verified 08/17/16 12:19) tongue, facial swelling aspirin [Aspirin] Allergy (Verified 08/17/16 12:19) ibuprofen [Ibuprofen] Allergy (Verified 08/17/16 12:19) Penicillins Allergy (Verified 08/17/16 12:19) warfarin sodium [From Coumadin] Adverse Reaction (Unknown, Verified 08/17/16 12: 19) bleeding rivaroxaban [From Xarelto] Adverse Reaction (Verified 08/17/16 12:19) Bleeding Review of Systems Constitutional: PRESENT: as per HPI Eyes: PRESENT: as per HPI Cardiovascular: PRESENT: as per HPI Respiratory: PRESENT: as per HPI Neurological: PRESENT: as per HPI Psychiatric: PRESENT: as per HPI Physical Exam Vital Signs: Temp Pulse Resp BP Pulse Ox 98.9 F 90 12 138/80 H 100 02/08/18 01:25 02/08/18 01:25 02/08/18 07:01 02/08/18 07:01 02/08/18 07:01 General appearance: PRESENT: no acute distress, other - Super morbid obesity Respiratory exam: PRESENT: clear to auscultation astrid. ABSENT: rales, rhonchi, wheezes Cardiovascular exam: PRESENT: RRR. ABSENT: diastolic murmur, rubs, systolic murmur GI/Abdominal exam: PRESENT: normal bowel sounds, soft. ABSENT: distended, guarding, mass, organolmegaly, rebound, tenderness Extremities exam: PRESENT: +2 edema Musculoskeletal exam: PRESENT: other - The lower third of both extremities are tender and erythematous. Results Impressions: Chest X-Ray 02/08/18 01:45 IMPRESSION: No acute disease. Assessment & Plan - Diagnosis (1) Bilateral lower leg cellulitis Is this a current diagnosis for this admission?: Yes Plan: This patient has an allergy to penicillin and other antibiotics will start her on clindamycin 600 mg IV every 8 hours. (2) Hypertension Qualifiers: Hypertension type: essential hypertension Qualified Code(s): I10 - Essential (primary) hypertension Is this a current diagnosis for this admission?: Yes Plan: Continue her home medication. (3) Hyperlipidemia Qualifiers: Hyperlipidemia type: unspecified Qualified Code(s): E78.5 - Hyperlipidemia , unspecified Is this a current diagnosis for this admission?: Yes Plan: Continue her home medication (4) Coronary artery disease Qualifiers: Coronary Disease-Associated Artery/Lesion type: [place] artery Is this a current diagnosis for this admission?: Yes Plan: No angina (5) Super morbid obesity Is this a current diagnosis for this admission?: Yes Plan: Lifestyle modification advised
[2018-02-08] MEDS ORDERED: OXYCODONE HCL IR 5 MG TABLET PO ONE (09:15)
[2018-02-08] MEDS: MORPHINE SULFATE SR 30 MG TABLET PO SCH ×2 (09:17→21:58)
[2018-02-08] MEDS: OXYCODONE-ACETAMINOPHEN 5-325 MG TABLET PO PRN (10:30)
[2018-02-08] MEDS: CLINDAMYCIN 600 MG/D5W RTU 600 MG/50 ML RTUPB IV SCH ×2 (10:31→17:50)
[2018-02-08] MEDS: ONDANSETRON 4 MG TAB.RAPDIS PO PRN (12:00)
[2018-02-08] MEDS ORDERED: PROMETHAZINE HCL INJ 25 MG/1 ML VIAL IV ONE (13:00)
[2018-02-08] MEDS: MORPHINE SULFATE 10 MG/ML INJ IV PRN (17:51)
[2018-02-08] MEDS: PROMETHAZINE HCL INJ 25 MG/1 ML VIAL IV PRN ×2 (17:51→22:32)
[2018-02-08] MEDS: FUROSEMIDE INJ/PF 40 MG/4 ML SDV IV SCH (17:56)
[2018-02-08] MEDS: HEPARIN SOD (PORCINE) 5,000 UNIT/ML 1 ML SYRINGE SUBCUT SCH ×2 (17:57→21:58)
--- NOTE | 2018-02-08 21:56 | EKG REPORT ---
SEVERITY:- BORDERLINE ECG - SINUS RHYTHM BORDERLINE T ABNORMALITIES, INFERIOR LEADS : Confirmed by: Gomez Oneill 08-Feb-2018 21:56:13
[2018-02-09] MEDS: MORPHINE SULFATE 10 MG/ML INJ IV PRN ×5 (02:41→19:40)
[2018-02-09] MEDS: CLINDAMYCIN 600 MG/D5W RTU 600 MG/50 ML RTUPB IV SCH ×3 (02:41→19:25)
[2018-02-09] MEDS: FUROSEMIDE INJ/PF 40 MG/4 ML SDV IV SCH ×2 (05:52→19:27)
[2018-02-09] MEDS: LANSOPRAZOLE 30 MG TAB.RAP.DR PO SCH (05:52)
[2018-02-09] MEDS: HEPARIN SOD (PORCINE) 5,000 UNIT/ML 1 ML SYRINGE SUBCUT SCH (05:52)
[2018-02-09] MEDS: OXYCODONE-ACETAMINOPHEN 5-325 MG TABLET PO PRN (05:52)
[2018-02-09 06:17] LABS: HEMATOCRIT 34.2 % (36.0-47.0); HEMOGLOBIN 11.7 g/dL (12.0-15.5); MEAN CORPUSCULAR HEMOGLOBIN 28.7 pg (27.0-33.4); MEAN CORPUSCULAR HGB CONC 34.1 g/dL (32.0-36.0); MEAN CORPUSCULAR VOLUME 84 fl (80-97); PLATELET COUNT 155 10^3/uL (150-450); RED BLOOD COUNT 4.06 10^6/uL (3.72-5.28); RED CELL DISTRIBUTION WIDTH 15.6 % (11.5-14.0); WHITE BLOOD COUNT 5.3 10^3/uL (4.0-10.5)
[2018-02-09 06:35] LABS: ANION GAP 12 (5-19); BLOOD UREA NITROGEN 13 mg/dL (7-20); CALCIUM 8.2 mg/dL (8.4-10.2); CARBON DIOXIDE 32 mmol/L (22-30); CHLORIDE 98 mmol/L (98-107); CHOLESTEROL 122.44 mg/dL (0-200); GLUCOSE 173 mg/dL (75-110); SODIUM 141.6 mmol/L (137-145); TRIGLYCERIDES 122 mg/dL (<150)
[2018-02-09 06:46] LABS: DIRECT LDL 50 mg/dL (<100)
[2018-02-09] MEDS: PROMETHAZINE HCL INJ 25 MG/1 ML VIAL IV PRN ×2 (08:44→12:31)
[2018-02-09] MEDS ORDERED: ALBUTEROL SULFATE HFA (90 MCG/PUFF) 8 GM MDI (1 MDI/ER DISP) IH PRN (10:51)
[2018-02-09] MEDS ORDERED: IPRATROPIUM/ALBUTEROL 0.5-2.5 MG/3 ML AMPUL NEB PRN (10:51)
[2018-02-09] MEDS ORDERED: ENOXAPARIN SODIUM INJ 150 MG/1 ML DISP.SYRIN SUBCUT ONE (12:00)
[2018-02-09] MEDS: ONDANSETRON 4 MG TAB.RAPDIS PO PRN (12:12)
[2018-02-09] MEDS: MORPHINE SULFATE SR 30 MG TABLET PO SCH ×2 (12:13→22:41)
--- NOTE | 2018-02-09 16:01 | PDOC PROGRESS REPORT ---
Subjective Progress Note for:: 02/09/18 Subjective:: This is superiorly morbid obese 47 years old female patient presented with bilateral leg swelling and tenderness. Patient found to have bilateral lower extremity cellulitis and she has been on clindamycin as she has multiple allergy to antibiotics. This morning I seen the patient while resting in bed comfortably she is not in pain or distress. The erythema and swelling seems subsiding. Reason For Visit: BILATERAL LOWER EXTERMITY CELLULITIS Physical Exam Vital Signs: Temp Pulse Resp BP Pulse Ox 98.3 F 75 18 132/73 H 100 02/09/18 15:13 02/09/18 15:13 02/09/18 15:13 02/09/18 15:13 02/09/18 15:13 Intake & Output 02/08/18 02/09/18 02/10/18 06:59 06:59 06:59 Intake Total 872 354 Balance 872 354 Weight 190.5 kg General appearance: PRESENT: no acute distress Head exam: PRESENT: atraumatic Eye exam: PRESENT: conjunctiva pink Mouth exam: PRESENT: moist Respiratory exam: PRESENT: clear to auscultation astrid. ABSENT: rales, rhonchi, wheezes Cardiovascular exam: PRESENT: RRR. ABSENT: diastolic murmur, rubs, systolic murmur GI/Abdominal exam: PRESENT: other - Morbidly obese Extremities exam: PRESENT: pedal edema Neurological exam: PRESENT: alert, awake, oriented to time, oriented to situation Psychiatric exam: PRESENT: normal mood Results Laboratory Results: 02/09/18 05:25 02/09/18 05:25 02/09/18 02/09/18 05:25 05:25 WBC 5.3 RBC 4.06 Hgb 11.7 L Hct 34.2 L MCV 84 MCH 28.7 MCHC 34.1 RDW 15.6 H Plt Count 155 Sodium 141.6 Potassium 4.0 Chloride 98 Carbon Dioxide 32 H Anion Gap 12 BUN 13 Creatinine 0.70 Est GFR ( Amer) > 60 Est GFR (Non-Af Amer) > 60 Glucose 173 H Calcium 8.2 L Triglycerides 122 Cholesterol 122.44 LDL Cholesterol Direct 50 VLDL Cholesterol 24.0 HDL Cholesterol 50 Impressions: Chest X-Ray 02/08/18 01:45 IMPRESSION: No acute disease. Assessment & Plan - Diagnosis (1) Bilateral lower leg cellulitis Is this a current diagnosis for this admission?: Yes Plan: Continue clindamycin (2) Hypertension Qualifiers: Hypertension type: essential hypertension Qualified Code(s): I10 - Essential (primary) hypertension Is this a current diagnosis for this admission?: Yes Plan: Continue her home medication. (3) Hyperlipidemia Qualifiers: Hyperlipidemia type: unspecified Qualified Code(s): E78.5 - Hyperlipidemia , unspecified Is this a current diagnosis for this admission?: Yes Plan: Continue her home medication (4) Coronary artery disease Qualifiers: Coronary Disease-Associated Artery/Lesion type: [place] artery Is this a current diagnosis for this admission?: Yes Plan: No angina (5) Super morbid obesity Is this a current diagnosis for this admission?: Yes Plan: Lifestyle modification advised (6) Lymphedema and venous stasis Is this a current diagnosis for this admission?: Yes Plan: Supportive care - Time Time Spent with patient: 25-34 minutes
[2018-02-09] MEDS ORDERED: (PENDING PHARMACY ID) (Bumetanide [Bumex 2 Mg Tablet] 2 MG) PO SCH (18:00)
[2018-02-09] MEDS: BUMETANIDE 1 MG TABLET PO SCH (19:29)
[2018-02-09] MEDS ORDERED: ATORVASTATIN CALCIUM 40 MG TABLET PO SCH (22:00)
[2018-02-09] MEDS: CARVEDILOL 3.125 MG TABLET PO SCH (22:41)
[2018-02-09] MEDS: ENOXAPARIN SODIUM INJ 150 MG/1 ML DISP.SYRIN SUBCUT SCH (22:41)
[2018-02-09] MEDS: LISINOPRIL 5 MG TABLET PO SCH (22:42)
[2018-02-10] MEDS: MORPHINE SULFATE 10 MG/ML INJ IV PRN ×2 (00:32→07:05)
[2018-02-10] MEDS: CLINDAMYCIN 600 MG/D5W RTU 600 MG/50 ML RTUPB IV SCH ×2 (03:04→09:35)
[2018-02-10] MEDS: FUROSEMIDE INJ/PF 40 MG/4 ML SDV IV SCH (07:03)
[2018-02-10] MEDS: LANSOPRAZOLE 30 MG TAB.RAP.DR PO SCH (07:03)
[2018-02-10 08:11] VITALS: BP 134/78
[2018-02-10] MEDS: ENOXAPARIN SODIUM INJ 150 MG/1 ML DISP.SYRIN SUBCUT SCH (09:35)
[2018-02-10] MEDS: MORPHINE SULFATE SR 30 MG TABLET PO SCH (09:36)
[2018-02-10] MEDS: BUMETANIDE 1 MG TABLET PO SCH (09:37)
[2018-02-10] MEDS: CARVEDILOL 3.125 MG TABLET PO SCH (09:37)
[2018-02-10] MEDS: LISINOPRIL 5 MG TABLET PO SCH (09:38)
[2018-02-10] MEDS ORDERED: FERROUS SULFATE 325 MG TABLET PO SCH (10:00)
[2018-02-10] MEDS ORDERED: DOCUSATE SODIUM 100 MG CAPSULE PO SCH (10:00)
[2018-02-10] MEDS ORDERED: POTASSIUM CHLORIDE 10 MEQ CAPSULE.ER PO SCH (10:00)
[2018-02-10] MEDS ORDERED: CLOPIDOGREL BISULFATE 75 MG TABLET PO SCH (10:00)
--- NOTE | 2018-02-10 10:38 | PDOC DISCHARGE SUMMARY ---
General - Admit/Disc Date/PCP Admission Date/Primary Care Provider: 02/08/18 08:09 Discharge Date: 02/10/18 - Discharge Diagnosis (1) Bilateral lower leg cellulitis Is this a current diagnosis for this admission?: Yes (2) Hypertension Is this a current diagnosis for this admission?: Yes (3) Hyperlipidemia Is this a current diagnosis for this admission?: Yes (4) Coronary artery disease Is this a current diagnosis for this admission?: Yes (5) Super morbid obesity Is this a current diagnosis for this admission?: Yes (6) Lymphedema and venous stasis Is this a current diagnosis for this admission?: Yes - Additional Information Resuscitation Status: Full Code Home Medications: Atorvastatin Calcium [Lipitor 40 mg Tablet] 40 mg PO QHS 09/07/17 Bumetanide [Bumex 2 mg Tablet] 2 mg PO BID 09/07/17 Carvedilol [Coreg 3.125 mg Tablet] 3.125 mg PO Q12 09/07/17 Clopidogrel Bisulfate [Plavix 75 mg Tablet] 75 mg PO DAILY 09/07/17 Enoxaparin Sodium [Lovenox Inj 150 mg/1 ml Disp.syrin] 150 mg SUBCUT Q12 Epinephrine [Epipen] 0.3 mg INJ ASDIR PRN 09/07/17 Ferrous Sulfate [Feosol 325 mg Tablet] 325 mg PO DAILY 09/07/17 Ipratropium/Albuterol Sulfate [Duoneb 3 ml Ampul] 3 ml NEB Q4HP PRN 09/07/17 Lisinopril [Prinivil 5 mg Tablet] 5 mg PO Q12 09/07/17 Morphine Sulfate [Ms-Contin Sr 30 mg Tablet] 60 mg PO BID 09/07/17 Oxycodone HCl/Acetaminophen [Percocet 10-325 mg Tablet] 1 tab PO Q12HP PRN 09/07 Potassium Chloride [Klor-Con 10 Meq Capsule ER] 10 meq PO DAILY 09/07/17 Albuterol Sulfate [Proair Hfa] 1 puff IH Q6HP PRN 02/08/18 Docusate Sodium [Colace 100 mg Capsule] 100 mg PO DAILY 02/08/18 History of Present Illness History of Present Illness: DOMONIQUE DOMINGUEZ is a 47 year old female patient with multiple comorbidities including super morbid obesity, diastolic CHF, history of PE and DVT, hypertension, hyperlipidemia, history of ovarian cancer status post hysterectomy and history of anxiety and depression presents with chief complaint of bilateral leg swelling and pain of 3 days duration. Of note the patient has underlying venous stasis and has history of recurrent cellulitis as well. Patient reports the swelling is gotten to the point that she cannot walk. She has been taking her Lasix and Bumex as prescribed, normally takes 80 mg of Lasix twice a day and 2 mg of Bumex twice a day on alternate days. Patient denies any fever, cough, chest pain, palpitation, diaphoresis, nausea, vomiting, abdominal pain or diarrhea. No orthopnea or paroxysmal nocturnal dyspnea. No headache or dizziness or blurring of vision. Her blood works are unremarkable. Hospital Course Hospital Course: his is superiorly morbid obese 47 years old female patient presented with bilateral leg swelling and tenderness. Patient found to have bilateral lower extremity cellulitis and she has been on clindamycin as she has multiple allergy to antibiotics including penicillin. This morning I seen the patient while propped up in bed and sleeping quietly, I awakened and I told her she is ready for discharge. Answered all her questions.. She is not in pain or any form of acute respiratory distress. She is awake alert and oriented. The erythema and swelling remarkably subsiding. This morning her labs are within normal limits and her vital signs are stable and patient scored to go home I will continue all her home medication and I will send her home with clindamycin 600 mg 3 times a day for the coming 5 days. Physical Exam Vital Signs: Temp Pulse Resp BP Pulse Ox 98.6 F 84 16 134/78 H 97 02/10/18 07:40 02/10/18 09:06 02/10/18 09:06 02/10/18 07:40 02/10/18 09:06 Intake & Output 02/09/18 02/10/18 02/11/18 06:59 06:59 06:59 Intake Total 872 1384 Output Total 0 Balance 872 1384 Weight 190.5 kg 197 kg General appearance: PRESENT: no acute distress Head exam: PRESENT: atraumatic Eye exam: PRESENT: conjunctiva pink Mouth exam: PRESENT: moist Respiratory exam: PRESENT: clear to auscultation astrid. ABSENT: rales, rhonchi, wheezes Cardiovascular exam: PRESENT: RRR. ABSENT: diastolic murmur, rubs, systolic murmur GI/Abdominal exam: PRESENT: normal bowel sounds, soft. ABSENT: distended, guarding, mass, organolmegaly, rebound, tenderness Extremities exam: PRESENT: +2 edema Neurological exam: PRESENT: alert, oriented to time, oriented to situation Psychiatric exam: PRESENT: normal mood Results Laboratory Results: 02/09/18 05:25 02/09/18 05:25 Impressions: Chest X-Ray 02/08/18 01:45 IMPRESSION: No acute disease. Qualifiers - * PATIENT BEING DISCHARGED WITH ANY OF THE FOLLOWING DIAGNOSIS: No
== END 2018-02-10 13:49 | disposition home or self-care (01) | DRG 603 ==
LOC: ER 01:16 → INTOOBSV 08:09 → EH 08:09 → 3S 11:45 → OBSVTOIN 02-09 14:25
PROVIDERS: ADMIT Internal Medicine; ATTEND Internal Medicine
PROC: 3E0F73Z Introduction of Anti-inflammatory into Respiratory Tract, Via Natural or Artificial Opening (ICD-10-PCS; principal; 2018-02-10)
DX: L03.116 Cellulitis of left lower limb (principal); I50.32 Chronic diastolic (congestive) heart failure; I69.154 Hemiplegia and hemiparesis following nontraumatic intracerebral hemorrhage affecting left non-dominant side; Z68.44 Body mass index [BMI] 60.0-69.9, adult; L03.115 Cellulitis of right lower limb; E78.00 Pure hypercholesterolemia, unspecified; I25.10 Atherosclerotic heart disease of native coronary artery without angina pectoris; E66.01 Morbid (severe) obesity due to excess calories; I89.0 Lymphedema, not elsewhere classified; I87.8 Other specified disorders of veins; F32.9 Major depressive disorder, single episode, unspecified; I11.0 Hypertensive heart disease with heart failure; F41.9 Anxiety disorder, unspecified; K21.9 Gastro-esophageal reflux disease without esophagitis; M19.90 Unspecified osteoarthritis, unspecified site; D64.9 Anemia, unspecified; Z79.899 Other long term (current) drug therapy; Z86.711 Personal history of pulmonary embolism; Z86.718 Personal history of other venous thrombosis and embolism; Z85.43 Personal history of malignant neoplasm of ovary; Z90.710 Acquired absence of both cervix and uterus; Z90.49 Acquired absence of other specified parts of digestive tract; Z83.3 Family history of diabetes mellitus; Z79.02 Long term (current) use of antithrombotics/antiplatelets; Z88.6 Allergy status to analgesic agent; Z88.3 Allergy status to other anti-infective agents; Z88.0 Allergy status to penicillin; Z85.51 Personal history of malignant neoplasm of bladder
CPT/HCPCS: 36415; 71046; 80048; 80053; 80061; 82550; 82553; 83036; 83880; 84484; 85025; 85027; 87040; 93005; 93010; 96374; 96375; 99285; G0378; J1644; J1940; J2270; J2550; J3490; S0119

== ENCOUNTER 2019-03-08 23:28 | Emergency (ER) | payer MEDICAID ==
[2019-03-09 00:38] VITALS: BP 163/103
--- NOTE | 2019-03-09 00:47 | ER Document Report ---
ED General - General Chief Complaint: Other Stated Complaint: HEMORRAHAGE Time Seen by Provider: 03/08/19 23:41 Mode of Arrival: Medic Information source: Patient, Relative, Emergency Med Personnel Notes: 48-year-old female on Lovenox and Plavix presents with bleeding to her left foot. Patient states that earlier in the evening she dropped a plate onto her foot which caused a pinpoint laceration and extensive bleeding. Patient's put a compression dressing on and upon my exam there is no active bleeding. Patient denies any foot pain. TRAVEL OUTSIDE OF THE [place] IN LAST 30 DAYS: No - HPI Onset: Just prior to arrival Onset/Duration: Sudden Quality of pain: No pain Severity: None Pain Level: Denies Associated symptoms: None Exacerbated by: Denies Relieved by: Denies Similar symptoms previously: No Recently seen / treated by doctor: No - Related Data Allergies/Adverse Reactions: daptomycin Allergy (Severe, Verified 08/17/16 12:19) Anaphylaxis lemon oil [Lemon Oil] Allergy (Severe, Verified 08/17/16 12:19) Anaphylaxis vancomycin [Vancomycin] Allergy (Mild, Verified 08/17/16 12:19) tongue, facial swelling aspirin [Aspirin] Allergy (Verified 08/17/16 12:19) ibuprofen [Ibuprofen] Allergy (Verified 08/17/16 12:19) Penicillins Allergy (Verified 08/17/16 12:19) warfarin sodium [From Coumadin] Adverse Reaction (Unknown, Verified 08/17/16 12:19) bleeding rivaroxaban [From Xarelto] Adverse Reaction (Verified 08/17/16 12:19) Bleeding Past Medical History - General Information source: Patient, Relative, Emergency Med Personnel, [facility] Records - Social History Smoking Status: Never Smoker Frequency of alcohol use: None Drug Abuse: None Lives with: Spouse/Significant other Family History: DM Patient has suicidal ideation: No Patient has homicidal ideation: No - Past Medical History Cardiac Medical History: Reports: Hx Coronary Artery Disease, Hx DVT, Hx Hypercholesterolemia, Hx Hypertension, Hx Pulmonary Embolism Denies: Hx Heart Attack Pulmonary Medical History: Reports: Hx Pneumonia Denies: Hx Asthma, Hx Bronchitis, Hx COPD Neurological Medical History: Reports: Hx Cerebrovascular Accident - LEFT SIDED WEAKNESS. Denies: Hx Seizures Renal/ Medical History: Reports: Hx Kidney Stones, Hx Renal Insufficiency. Denies: Hx Peritoneal Dialysis Malignancy Medical History: Reports: Hx Ovarian Cancer - Bladder metastases GI Medical History: Reports: Hx Gastroesophageal Reflux Disease, Hx Ulcer. Denies: Hx Pancreatitis Musculoskeletal Medical History: Reports Hx Arthritis, Denies Hx Systemic Lupus Erythematosus Skin Medical History: Reports Hx Cellulitis Psychiatric Medical History: Reports: Hx Anxiety, Hx Depression Past Surgical History: Reports: Hx Cardiac Surgery - angioplasty, Hx Se ction, Hx Cholecystectomy, Hx Hysterectomy, Hx Orthopedic Surgery, Hx Urinary Tract Surgery - Bladder surgery for a metastatic cancer - Immunizations Hx Diphtheria, Pertussis, Tetanus Vaccination: No Hx Pneumococcal Vaccination: 04/22/13 Review of Systems - Review of Systems Notes: REVIEW OF SYSTEMS: CONSTITUTIONAL : Denies fever, chills, or sweats. Denies recent illness. Denies weight loss, recent hospitalizations. EENT: Denies visual changes, eye pain. Denies sore throat, oral lesions, difficulty swallowing. CARDIOVASCULAR: Denies chest pain. Denies palpitations. Denies lower extremity edema. RESPIRATORY: Denies cough. Denies shortness of breath, wheezing. GASTROINTESTINAL: Denies abdominal pain or distention. Denies nausea, vomiting, or diarrhea. Denies blood in vomitus, stools, or per rectum. Denies black, tarry stools. Denies constipation. GENITOURINARY: Denies difficulty urinating, painful urination, frequency, blood in urine, or vaginal discharge. MUSCULOSKELETAL: Denies back or neck pain or stiffness. Denies joint pain or swelling. SKIN: Small puncture wound on the dorsum of the left foot HEMATOLOGIC : Denies easy bruising or bleeding. LYMPHATIC: Denies swollen glands. NEUROLOGICAL: Denies confusion or altered mental status. Denies loss of consciousness. Denies dizziness or lightheadedness. Denies headache. Denies weakness or paralysis. Denies problems difficulty with ambulation, slurred speech. Denies sensory loss, numbness, or tingling. Denies seizures. PSYCHIATRIC: Denies anxiety or stress. Denies depression, suicidal ideation, or homicidal ideation. Denies visual or auditory hallucinations. Physical Exam - Vital signs Vitals: BP 163/103 H 03/09/19 00:38 - Notes Notes: PHYSICAL EXAMINATION: GENERAL: Well-appearing, no acute distress, morbidly obese HEAD: Atraumatic, normocephalic. EYES: Pupils equal round and reactive to light, extraocular movements intact, conjunctiva are normal. ENT: Nares patent, oropharynx clear without exudates. Moist mucous membranes. NECK: Normal range of motion, supple without lymphadenopathy LUNGS: Breath sounds clear to auscultation bilaterally and equal. No wheezes rales or rhonchi. HEART: Regular rate and rhythm without murmurs ABDOMEN: Soft, nontender, nondistended abdomen. No guarding, no rebound. No masses appreciated. Female : deferred Musculoskeletal: Normal range of motion, no pitting or edema. No cyanosis. Left foot-small pinpoint puncture on the dorsum of the foot with no active bleeding. NEUROLOGICAL: Cranial nerves grossly intact. Normal speech, normal gait. Normal sensory, motor exams PSYCH: Normal mood, normal affect. SKIN: Warm, Dry, normal turgor, no rashes or lesions noted. Course - Re-evaluation Re-evalutation: 03/09/19 02:59 Temp Pulse Resp BP Pulse Ox 163/103 H 03/09/19 00:38 03/09/19 02:59 48-year-old female on Lovenox and Plavix presents with bleeding to her left foot. Patient states that earlier in the evening she dropped a plate onto her foot which caused a pinpoint laceration and extensive bleeding. Patient's put a compression dressing on and upon my exam there is no active bleeding. Patient denies any foot pain. Quick clot and a compression dressing was placed on the foot and patient was discharged home in stable condition. Patient was evaluated and treated as appropriate for the patient's presenting symptoms and complaint, with consideration of any critical or life threatening conditions that may be associated with their obtained history and exam as noted above. All results were discussed with patient and her who was at the bedside patient provided the opportunity to ask questions, and express concerns. Patient was educated on treatments based on their presumed diagnosis as noted above. At this time we will discharge the patient with return precautions and follow-up recommendations. Verbal discharge instructions given a the bedside. Medication warnings reviewed. Patient is in agreement with this plan and has verbalized understanding of return precautions. After careful consideration I feel that that patient can be safely discharged from the emergency department, they were advised to followup with a primary care physician in 2-3 days. Dictation on this chart was performed using voice recognition software and may result in unintended grammatical, spelling, syntax or errors. - Vital Signs Vital signs: Temp Pulse Resp BP Pulse Ox 163/103 H 03/09/19 00:38 Discharge - Discharge Clinical Impression: longterm current use of anticoagulant therapy Superficial laceration of left foot Qualifiers: Encounter type: initial encounter Qualified Code(s): S91.312A - Laceration without foreign body, left foot, initial encounter Condition: Good Disposition: HOME, SELF-CARE Instructions: Antibiotic Ointment Protection ([facility]), Laceration Care ([facility]) Additional Instructions: If your foot begins to bleed again please apply direct pressure for at least 20 minutes. Follow up with your [id number] hours for further care or return to the ED IMMEDIATELY if symptoms worsen or you have any concerns. If you cannot afford to follow up with your primary care physician a list of low cost clinics have been provided at the end of your discharge papers as well. Most prescribed medications have multiple side effects. The safest thing to do is when filling your prescription speak to your pharmacist regarding possible interactions with your normal home medications and over the counter medications such as Ibuprofen, Tylenol, Benadryl. If you experience any symptoms that cause you discomfort or concern you should discontinue the medication immediately and return to the emergency room or call your primary care physician. Forms: Elevated Blood Pressure
== END 2019-03-09 00:55 | disposition home or self-care (01) ==
LOC: ER 23:28
DX: S91.312A Laceration without foreign body, left foot, initial encounter (principal); W20.8XXA Other cause of strike by thrown, projected or falling object, initial encounter; I25.10 Atherosclerotic heart disease of native coronary artery without angina pectoris; I10 Essential (primary) hypertension; Z79.02 Long term (current) use of antithrombotics/antiplatelets; Z79.01 Long term (current) use of anticoagulants; Z86.711 Personal history of pulmonary embolism; Z86.718 Personal history of other venous thrombosis and embolism; Z87.892 Personal history of anaphylaxis; Z88.1 Allergy status to other antibiotic agents; Z91.018 Allergy to other foods; Z88.8 Allergy status to other drugs, medicaments and biological substances; Z88.0 Allergy status to penicillin
CPT/HCPCS: 99282

== ENCOUNTER 2019-07-04 12:10 | Emergency (ER) | payer MEDICAID ==
--- NOTE | 2019-07-04 13:56 | ER Document Report ---
ED Medical Screen (RME) - General Chief Complaint: Fall Stated Complaint: FALL-BOTH ARMS INJURED/HEAD/BACK Time Seen by Provider: 07/04/19 13:36 TRAVEL OUTSIDE OF THE [place] IN LAST 30 DAYS: No - HPI Notes: 07/04/19 13:53 Patient is a 48-year-old female who is currently on Lovenox and Plavix who presents complaining of neck pain, posterior head pain, right upper arm pain, and left forearm pain status post fall 2 days ago. Patient states that she was in a store and was walking around a box when she fell backwards onto the 2 tables knocking things over and on top of her. Patient states that she did hit the back of her head off of the floor and has had a mild headache since then. Patient states that she did have a superficial cut to her right upper arm that is scabbed over. No fever, chest pain, shortness of breath, abdominal pain, nausea/vomiting. No loss of consciousness. I have treated and performed a rapid initial assessment of this patient. A comprehensive ED assessment and evaluation of the patient, analysis of test results and completion of medical decision making process will be conducted by additional ED providers. PHYSICAL EXAMINATION: GENERAL: Well-appearing, well-nourished and in no acute distress. A&Ox4. Answers questions appropriately. Morbid obesity. Overall limited exam. Head: + tenderness to occiput Neck: + midline tenderness Rt humerus: + ecchymosis with superficial abrasion/exoriation noted. + tenderness associated. Lt forearm: + tenderness and mild ecchymosis noted. Neuro: cranial nerves grossly intact otherwise - Related Data Allergies/Adverse Reactions: daptomycin Allergy (Severe, Verified 07/04/19 13:32) Anaphylaxis lemon oil [Lemon Oil] Allergy (Severe, Verified 07/04/19 13:32) Anaphylaxis vancomycin [Vancomycin] Allergy (Mild, Verified 07/04/19 13:32) tongue, facial swelling aspirin [Aspirin] Allergy (Verified 07/04/19 13:32) ibuprofen [Ibuprofen] Allergy (Verified 07/04/19 13:32) Penicillins Allergy (Verified 07/04/19 13:32) warfarin sodium [From Coumadin] Adverse Reaction (Unknown, Verified 07/04/19 13:32) bleeding rivaroxaban [From Xarelto] Adverse Reaction (Verified 07/04/19 13:32) Bleeding Home Medications: Xarelto. Lovenox. Bumetanide. Atorvastatin. Potassium Chloride. Coreg Past Medical History - Social History Chew tobacco use (# tins/day): No Frequency of alcohol use: None Drug Abuse: None - Past Medical History Cardiac Medical History: Reports: Hx Coronary Artery Disease, Hx DVT, Hx Hypercholesterolemia, Hx Hypertension, Hx Pulmonary Embolism Denies: Hx Heart Attack Pulmonary Medical History: Reports: Hx Pneumonia Denies: Hx Asthma, Hx Bronchitis, Hx COPD Neurological Medical History: Reports: Hx Cerebrovascular Accident - LEFT SIDED WEAKNESS. Denies: Hx Seizures, Hx Parkinson's Disease Renal/ Medical History: Reports: Hx Kidney Stones, Hx Renal Insufficiency. Denies: Hx Peritoneal Dialysis Malignancy Medical History: Reports: Hx Ovarian Cancer - Bladder metastases GI Medical History: Reports: Hx Gastroesophageal Reflux Disease, Hx Ulcer. Denies: Hx Pancreatitis Musculoskeltal Medical History: Reports Hx Arthritis, Denies Hx Systemic Lupus Erythematosus Skin Medical History: Reports Hx Cellulitis Psychiatric Medical History: Reports: Hx Anxiety, Hx Depression Past Surgical History: Reports: Hx Cardiac Surgery - angioplasty, Hx Section, Hx Cholecystectomy, Hx Hysterectomy, Hx Orthopedic Surgery, Hx Urinary Tract Surgery - Bladder surgery for a metastatic cancer - Immunizations Hx Diphtheria, Pertussis, Tetanus Vaccination: No Physical Exam - Vital signs Vitals: Temp Pulse Resp BP Pulse Ox 98.7 F 87 19 141/78 H 98 07/04/19 12:23 07/04/19 12:23 07/04/19 12:23 07/04/19 12:23 07/04/19 12:23 Course - Vital Signs Vital signs: Temp Pulse Resp BP Pulse Ox 98.7 F 87 19 141/78 H 98 07/04/19 13:34 07/04/19 12:23 07/04/19 13:34 07/04/19 12:23 07/04/19 13:34
--- NOTE | 2019-07-04 14:31 | RADIOLOGY REPORT (SQ) ---
EXAM DESCRIPTION: CT HEAD WITHOUT COMPLETED DATE/TIME: 07/04/2019 2:13 pm REASON FOR STUDY: fall, injury, on lovenox/plavix COMPARISON: 05/01/2015 TECHNIQUE: Axial images acquired through the brain without intravenous contrast. Images reviewed wi th bone, brain and subdural windows. Additional sagittal and coronal reconstructions were generated. Images stored on PACS. All CT scanners at this facility use dose modulation, iterative reconstruction, and/or weight based d osing when appropriate to reduce radiation dose to as low as reasonably achievable (ALARA). [facility]: Dose Right [facility]: CareDose [facility]: Dose Right [facility]: Teradose 4D [facility]: PageStitch RADIATION DOSE: CT Rad equipment meets quality standard of care and radiation dose reduction techniq ues were employed. CTDIvol: 53.2 mGy. DLP: 1017 mGy-cm. mGy. LIMITATIONS: None. FINDINGS: VENTRICLES: Normal size and contour. CEREBRUM: No masses. No hemorrhage. No midline shift. No evidence for acute infarction. Normal gra y/white matter differentiation. No areas of low density in the white matter. CEREBELLUM: No masses. No hemorrhage. No alteration of density. No evidence for acute infarction. EXTRAAXIAL SPACES: No fluid collections. No masses. ORBITS AND GLOBE: No intra- or extraconal masses. Normal contour of globe without masses. CALVARIUM: No fracture. PARANASAL SINUSES: No fluid or mucosal thickening. SOFT TISSUES: No mass or hematoma. OTHER: No other significant finding. IMPRESSION: NORMAL BRAIN CT WITHOUT CONTRAST. EVIDENCE OF ACUTE STROKE: NO. COMMENT: Quality ID # [id number]: Final reports with documentation of one or more dose reduction techniques (e.g., Automated exposure control, adjustment of the mA and/or kV according to patient size, use of iterative reconstruction technique) TECHNICAL DOCUMENTATION: JOB ID: [id number] [employer]- All Rights Reserved Reading location - IP/workstation name: [email or web address]
--- NOTE | 2019-07-04 14:32 | RADIOLOGY REPORT (SQ) ---
EXAM DESCRIPTION: CT CERVICAL SPINE WITHOUT COMPLETED DATE/TIME: 07/04/2019 2:13 pm REASON FOR STUDY: fall, injury, on lovenox/plavix COMPARISON: None. TECHNIQUE: Axial images acquired through the cervical spine without intravenous contrast. Images re viewed with lung, soft tissue and bone windows. Reconstructed coronal and sagittal MPR images review ed. Images stored on PACS. All CT scanners at this facility use dose modulation, iterative reconstruction, and/or weight based d osing when appropriate to reduce radiation dose to as low as reasonably achievable (ALARA). [facility]: Dose Right [facility]: CareDose [facility]: Dose Right [facility]: Teradose 4D [facility]: Cirqle RADIATION DOSE: CT Rad equipment meets quality standard of care and radiation dose reduction techniq ues were employed. CTDIvol: 30.1 mGy. DLP: 562 mGy-cm. mGy. LIMITATIONS: None. FINDINGS: ALIGNMENT: Anatomic. MINERALIZATION: Normal. VERTEBRAL BODIES: No fractures or dislocation. DISCS: Mild disc space narrowing at C4-5. FACETS, LATERAL MASSES, POSTERIOR ELEMENTS: No fractures. No dislocation. No acute findings. HARDWARE: None in the spine. VISUALIZED RIBS: No fractures. LUNG APICES AND SOFT TISSUES: No significant or acute findings. OTHER: No other significant finding. IMPRESSION: No acute findings in the cervical spine. Mild disc space narrowing at C4-5. TECHNICAL DOCUMENTATION: JOB ID: [id number] Quality ID # [id number]: Final reports with documentation of one or more dose reduction techniques (e.g., Au tomated exposure control, adjustment of the mA and/or kV according to patient size, use of iterative reconstruction technique) 2010 [employer]- All Rights Reserved Reading location - IP/workstation name: [email or web address]
--- NOTE | 2019-07-04 14:35 | RADIOLOGY REPORT (SQ) ---
EXAM DESCRIPTION: FOREARM LEFT COMPLETED DATE/TIME: 07/04/2019 2:23 pm REASON FOR STUDY: pain s/p fall COMPARISON: None. NUMBER OF VIEWS: Two views. TECHNIQUE: Two radiographic images acquired of the left forearm, including elbow and wrist in at armani st one projection. LIMITATIONS: None. FINDINGS: MINERALIZATION: Normal. BONES: No acute fracture. No worrisome bone lesions. SOFT TISSUES: No obvious swelling or foreign body. OTHER: No other significant finding. IMPRESSION: NEGATIVE STUDY OF THE LEFT FOREARM. NO RADIOGRAPHIC EVIDENCE OF ACUTE INJURY. TECHNICAL DOCUMENTATION: JOB ID: [id number] [employer]- All Rights Reserved Reading location - IP/workstation name: [email or web address]
--- NOTE | 2019-07-04 14:35 | RADIOLOGY REPORT (SQ) ---
EXAM DESCRIPTION: HUMERUS RIGHT COMPLETED DATE/TIME: 07/04/2019 2:23 pm REASON FOR STUDY: pain s/p fall COMPARISON: None. NUMBER OF VIEWS: Two views. TECHNIQUE: Two radiographic images were acquired of the right humerus to include elbow and shoulder in at least one projection. LIMITATIONS: None. FINDINGS: MINERALIZATION: Normal. BONES: No acute fracture or dislocation. No worrisome bone lesions. SOFT TISSUES: No obvious swelling or foreign body. OTHER: No other significant finding. IMPRESSION: NEGATIVE STUDY OF THE RIGHT HUMERUS. NO RADIOGRAPHIC EVIDENCE OF ACUTE INJURY. TECHNICAL DOCUMENTATION: JOB ID: [id number] [employer]- All Rights Reserved Reading location - IP/workstation name: [email or web address]
[2019-07-04] MEDS ORDERED: DIPH/PERTUSS(ACELL)/TETANUS VAC/PF 0.5 ML SYR (>=10YO) IM ONE (16:39)
[2019-07-04] MEDS ORDERED: MORPHINE SULFATE 10 MG/ML INJ IM ONE (16:41)
[2019-07-04 16:55] VITALS: BP 154/100
--- NOTE | 2019-07-04 17:33 | ER Document Report ---
Entered by MOISÉS DA SILVA SCRIBE 07/04/19 [id number] Acting as scribe for:DIANE DUNN IV, MD ED General - General Chief Complaint: Fall Stated Complaint: FALL-BOTH ARMS INJURED/HEAD/BACK Time Seen by Provider: 07/04/19 13:36 Mode of Arrival: Ambulatory Information source: Patient Notes: This 48 year old female patient presents to the emergency department today with complaints of pain resulting from a fall that occurred two days ago. Patient reports that she was shopping at [employer] and she "tripped over some [employer] causing everything to fall on top of me". Patient reports that she did not have much pain initially, that it was increased over the last day or so. Patient complains of right upper extremity pain and upper neck pain. Patient did not lose consciousness. TRAVEL OUTSIDE OF THE [place] IN LAST 30 DAYS: No - Related Data Allergies/Adverse Reactions: daptomycin Allergy (Severe, Verified 07/04/19 13:32) Anaphylaxis lemon oil [Lemon Oil] Allergy (Severe, Verified 07/04/19 13:32) Anaphylaxis vancomycin [Vancomycin] Allergy (Mild, Verified 07/04/19 13:32) tongue, facial swelling aspirin [Aspirin] Allergy (Verified 07/04/19 13:32) ibuprofen [Ibuprofen] Allergy (Verified 07/04/19 13:32) Penicillins Allergy (Verified 07/04/19 13:32) warfarin sodium [From Coumadin] Adverse Reaction (Unknown, Verified 07/04/19 13:32) bleeding rivaroxaban [From Xarelto] Adverse Reaction (Verified 07/04/19 13:32) Bleeding Home Medications: Xarelto. Lovenox. Bumetanide. Atorvastatin. Potassium Chloride. Coreg Past Medical History - General Information source: Patient - Social History Smoking Status: Never Smoker Cigarette use (# per day): No Chew tobacco use (# tins/day): No Frequency of alcohol use: None Drug Abuse: None Lives with: Family Family History: Reviewed & Not Pertinent, DM Patient has suicidal ideation: No Patient has homicidal ideation: No - Past Medical History Cardiac Medical History: Reports: Hx Coronary Artery Disease, Hx DVT, Hx Hypercholesterolemia, Hx Hypertension, Hx Pulmonary Embolism Pulmonary Medical History: Reports: Hx COPD, Hx Pneumonia Neurological Medical History: Reports: Hx Cerebrovascular Accident - LEFT SIDED WEAKNESS Renal/ Medical History: Reports: Hx Kidney Stones, Hx Renal Insufficiency Malignancy Medical History: Reports: Hx Ovarian Cancer - Bladder metastases GI Medical History: Reports: Hx Gastroesophageal Reflux Disease, Hx Ulcer Musculoskeletal Medical History: Reports Hx Arthritis Skin Medical History: Reports Hx Cellulitis Psychiatric Medical History: Reports: Hx Anxiety, Hx Depression Past Surgical History: Reports: Hx Cardiac Surgery - angioplasty, Hx Section, Hx Cholecystectomy, Hx Hysterectomy, Hx Orthopedic Surgery, Hx Urinary Tract Surgery - Bladder surgery for a metastatic cancer - Immunizations Hx Diphtheria, Pertussis, Tetanus Vaccination: No Hx Pneumococcal Vaccination: 04/22/13 Review of Systems - Review of Systems Constitutional: No symptoms reported EENT: No symptoms reported Cardiovascular: No symptoms reported Respiratory: No symptoms reported Gastrointestinal: No symptoms reported Genitourinary: No symptoms reported Female Genitourinary: No symptoms reported Musculoskeletal: See HPI, Muscle pain, Muscle stiffness, Neck pain Skin: No symptoms reported Hematologic/Lymphatic: No symptoms reported Neurological/Psychological: denies: Lost consciousness -: Yes All other systems reviewed and negative Physical Exam - Vital signs Vitals: Temp Pulse Resp BP Pulse Ox 98.7 F 87 19 141/78 H 98 07/04/19 12:23 07/04/19 12:23 07/04/19 12:23 07/04/19 12:23 07/04/19 12:23 - Notes Notes: Physical Exam: General: Alert, appears well. Morbidly obese. HEENT: Normocephalic. Atraumatic. PERRL. Extraocular movements intact. Or opharynx clear. Neck: Supple. Non-tender. Respiratory: No respiratory distress. Clear and equal breath sounds bilaterally. Cardiovascular: Regular rate and rhythm. Abdominal: Morbidly obese Back: No gross abnormalities. Extremities: Moves all four extremities. There is a 12 cm abrasion that does not require suturing over the right tricep with surrounding ecchymosis. No shoulder or elbow tenderness with palpation. Full range of motion. Lower extremities: Normal inspection. No edema. Normal ROM. Neurological: Normal cognition. AAOx4. Normal speech. Psychological: Normal affect. Normal Mood. Skin: Warm. Dry. Normal color. Course - Vital Signs Vital signs: Temp Pulse Resp BP Pulse Ox 98.6 F 92 20 154/100 H 100 07/04/19 16:54 07/04/19 16:54 07/04/19 16:54 07/04/19 16:54 07/04/19 16:54 Discharge - Discharge Clinical Impression: Abrasion Accidental fall Qualifiers: Encounter type: initial encounter Qualified Code(s): W19.XXXA - Unspecified fall, initial encounter Cervical strain, acute Qualifiers: Encounter type: initial encounter Qualified Code(s): S16.1XXA - Strain of muscle, fascia and tendon at neck level, initial encounter Contusion of right upper extremity Qualifiers: Encounter type: initial encounter Qualified Code(s): S40.021A - Contusion of right upper arm, initial encounter Condition: Good Disposition: HOME, SELF-CARE Additional Instructions: Return to the Emergency Department without delay if any worse. CoNeck Injury (Cervical Strain) You have a neck strain. This is an injury to the muscles and ligaments in the neck. There is no evidence of a fracture of the neck bones. Also, no injury to the spinal cord or nerve roots was detected. Usually, stiffness and pain INCREASE for the first 24-48 hours after the injury. The pain will gradually resolve and the neck will become more mobile. Most patients are back at work or school within a few days. Typically, complete healing takes about two or three weeks. The usual initial treatment is rest and cold packs. A neck collar may be placed to keep the muscles of the neck at rest. Antiinflammatory and muscle relaxing medication are often used to reduce the spasm and irritation. You should call the doctor, or go to the hospital, if you develop numbness or weakness in any extremity, problems with your bladder or bowel, or pain radiating down the arms. ntusion Your injury has resulted in a contusion -- a crushing of the deep tissues. No injury to important structures was detected during the physician's exam. Contusions vary in the amount of pain they cause, and in the length of time required for healing. Typically, the area will become bruised, and will remain painful to touch for two or three weeks. However, most patients are back to working and playing within a few days. After the initial period of rest and cold-packs, your symptoms (together with the doctor's recommendations) will determine how rapidly you can get back to full activity. Usually this means "do what feels okay, but don't do things that hurt." If re-examination was recommended, it's important to follow up as instructed. Call the doctor or return any time if pain increases, if swelling becomes severe, if you develop numbness or weakness in an injured extremity, or if any other alarming symptoms occur.Abrasions An abrasion is a scraping injury of the skin. Some scarring may result. The seriousness of an abrasion is not always obvious at first. Hidden tissue damage may be present and infection may occur despite proper care. Complete healing may take from ten days to as long as a month. The healing time depends on the depth of the abrasion, and on the amount of crushing of underlying tissues from the injury. Keep the wound and dressing clean. Do not shower or bathe the area until okayed by the doctor. If the dressing gets wet, remove it and blot the wound dry, then reapply a clean dressing. Dressings should be changed every day. Sunscreen should be used for six months after the skin is healed. If any signs of infection occur (swelling, redness, increasing tenderness, red streaks, profuse purulent drainage from the abrasion, tender lumps in the armpit or groin above the abrasion, or fever), see the doctor immediately. HOME CARE INSTRUCTIONS & INFORMATION: Thank you for choosing us for your medical needs. We hope you're satisfied with the care you received. After you leave, you must properly care for your problem and, at the same time, observe its progress. Any condition can change. Some illnesses can change rapidly over hours or days. If your condition worsens, return to the Emergency Department or see your physician promptly. ABOUT YOUR X-RAYS AND EKG'S: If you had an EKG or X-rays taken, they have been read by the Emergency Physician. The X-rays and EKG's will also be read by a Radiologist or [facility] within 24 hours. If discrepancies are noted, you will be notified by telephone. Please be certain the ED has a correct telephone number & address where you can be reached. Also, realize that some fractures or abnormalities do not show up on initial X-rays. If your symptoms continue, see your physician. ABOUT YOUR LABORATORY TEST: If you had laboratory tests, the results have been reviewed by the Emergency Physician. Some test results (for example cultures) may not be available for several days. You will be contacted if any test result shows you need additional treatment. Please be certain the ED has a correct telephone number and address where you can be reached. ABOUT YOUR MEDICATIONS: You will receive instructions on how to take your medicine on the prescription label you receive. Additional information may be provided by the Pharmacy. If you have questions afterwards, call the ED for clarification or further instructions. Some prescribed medications may cause drowsiness. Do not perform tasks such as driving a car or operating machinery without consulting your Pharmacist. If you feel you need a refill of pain medication, your condition will need re-evaluation. Please do not call for a refill of any medication. ABOUT YOUR SIGNATURE: Signature of this document acknowledges to followin. Understanding that you received emergency treatment and that you may be released before al medical problems are known or treated. Please be certain the ED has a correct phone number & address where you can be reached. 2. Acknowledgement that you will arrange for follow-up care as recommended. 3. Authorization for the Emergency Physician to provide information to your follow-up Physician in order to maximize your care. AT ANY TIME, IF YOUR SYMPTOMS CHANGE SIGNIFICANTLY OR WORSEN OR YOU DEVELOP NEW SYMPTOMS, RETURN TO THE EMERGENCY DEPARTMENT IMMEDIATELY FOR RE-EVALUATION. OUR GOAL IS TO PROVIDE EXCELLENT MEDICAL CARE! WE HOPE THAT WE HAVE MET YOUR EXPECTATIONS DURING YOUR EMERGENCY DEPARTMENT VISIT AND THAT YOU FEEL YOU HAVE RECEIVED EXCELLENT CARE! Prescriptions: Hydrocodone/Acetaminophen [Vicodin 5-300 mg Tablet] 1 each PO Q6HP PRN 3 Days #12 tablet PRN Reason: Severe Pain Cyclobenzaprine HCl [Flexeril 10 mg Tablet] 10 mg PO Q8HP PRN 5 Days #15 tablet PRN Reason: Muscle Spasms I personally performed the services described in the documentation, reviewed and edited the documentation which was dictated to the scribe in my presence, and it accurately records my words and actions.
== END 2019-07-04 17:08 | disposition home or self-care (01) ==
LOC: ER 12:10
DX: S16.1XXA Strain of muscle, fascia and tendon at neck level, initial encounter (principal); S40.811A Abrasion of right upper arm, initial encounter; S40.021A Contusion of right upper arm, initial encounter; W01.198A Fall on same level from slipping, tripping and stumbling with subsequent striking against other object, initial encounter; Z88.3 Allergy status to other anti-infective agents; Z88.0 Allergy status to penicillin; Z88.6 Allergy status to analgesic agent; Z79.02 Long term (current) use of antithrombotics/antiplatelets; Z90.49 Acquired absence of other specified parts of digestive tract; Z90.710 Acquired absence of both cervix and uterus
CPT/HCPCS: 99284; 96372; 90471; 73090; 73060; 70450; 72125; 90715; J2270